=== PATIENT | male | born 1990 | race African-American/Black ===

== ENCOUNTER 2023-04-08 14:15 | Inpatient (IN) | payer OTHER, SELFPAY ==
--- OUTSIDE RECORDS SUMMARY | 2023-04-08 14:22 | XMS_ITS | Continuity of Care Document ---
Author Name Unknown Organization [facility] Address [address] [place] [id number]- Care Team Providers Care Collateral Specialist Name Role Phone Not on Staff, PCP Primary Care Physician Unavail able Encounter [facility] [place] Date(s): 12/13/22 - 12/13/[address] [address]- Encounter Diagnosis Alcohol intoxication(Final) - 12/13/22 Suicidal ideations(Final) - 12/13/22 Discharge Disposition: A-D/C Home Attending Physician: Aaron Rousseau MD Admitting Physician: Aaron Rousseau MD Referring Physician: Not on Staff, Referring MD Allergies, Adverse Reactions, Alerts Substance Reaction Severity Status Other Food Allergy Difficulty breathing CHOCOLATE MILK Active traZODone 1 Active 1 couldn't breath per patient report Immunizations Given and Recorded Vaccine Date Status Refusal Reason tetanus/diphtheria/pertussis, acel(Tdap) 07/25/20 Given tetanus/diphtheria/pertussis, acel(Tdap) 08/08/11 Given Not Given Vaccine Date Status Refusal Reason pneumococcal 23-valent vaccine 07/13/20 Not Given Patient Refuses influenza virus vaccine, inactivated 07/13/20 Not Given Patient Refuses Medications cloNIDine 0.1 mg oral tablet 0.1 mg, 1, tablet, By Mouth, 2 times a day, TAKE ONE TABLET BY MOUTH TWO TIMES DAILY, # 28 tablet, Refills 1, Tot. Refills 1, Maintenance, 11/26/22 10:11:00 EDT, Route to Pharmacy Electronically, [facility], Partial fill upon patient req... Start Date: 11/26/22 Stop Date: 12/24/22 Status: Ordered fluticasone 50 mcg/inh nasal spray 1 sprays = 50 mcg, Nares, Both, 2 times a day, PRN Nasal Congestion, # 16 Gm, 0 Refills, Maintenance, 05/19/20 9:17:00 EST, Nasal [place], [id number], Partial fill upon patient requestif the prescription is for a schedule II opioid silvia... Start Date: 05/19/20 Stop Date: 06/18/20 Status: Ordered hydrOXYzine pamoate 50 mg oral capsule 1 capsule = 50 mg, By Mouth, 3 times a day, PRN for anxiety, TAKE ONE CAPSULE BY MOUTH THREE TIMES DAILY NEEDED FOR ANXIETY, # 90 capsule, 0 Refills, Maintenance, 11/26/22 10:12:00 EDT, Capsule, [facility], Partial fill upon patient r... Start Date: 11/26/22 Stop Date: 12/26/22 Status: Ordered lidocaine 5% topical film 1 patch, Topically, Daily, for 30 days, APPLY ONE PATCH TO RIGHT LEG DAILY FOR PAIN RELIEF, # 30 patch, 0 Refills, Acute 12/26/22 10:14:00 EDT, 11/26/22 10:14:00 EDT, Patch, [facility],Partial fill upon patient request if the prescripti... Start Date: 11/26/22 Stop Date: 12/26/22 Status: Ordered nicotine 14 mg/24 hr transdermal film, extended release 1 patch, Topically, Daily, for 14 days, # 14 patch, 1 Refills, Acute 12/24/22 10:12:00 EDT, 11/26/22 10:12:00 EDT, Patch, [facility], Partial fill upon patient request if the prescription is for a schedule II opioid drug., 1 patch Topica... Start Date: 11/26/22 Stop Date: 12/24/22 Status: Ordered Nicotine 2 mg gum = 2 mg, Chew, Every 3 hours, PRN Other, cigarette craving, # 160 each, 0 Refills, Maintenance, 05/19/20 9:18:00 EST, Gum, [facility] #[id number], Partial fill upon patient request if the prescription is for a schedule II opioid drug., 182, cm, 12... Start Date: 05/19/20 Stop Date: 06/16/20 Status: Ordered QUEtiapine 100 mg oral tablet See Instructions, TAKE ONE TABLET (100 MG) BY MOUTH DAILY IN AM AND TWO TABLETS (200 MG) BY MOUTH DAILY AT BEDTIME, # 42 tablet, Refills 1, Tot. Refills 1, Maintenance, 11/26/22 10:13:00 EDT, Instructions Replace Required Details, Route to Pharmacy [place]... Start Date: 11/26/22 Status: Ordered Problem List Condition Confirmation Course Effective Dates Status Health St atus Informant Cocaine use Confirmed Active Schizophrenia Confirmed Active Vital Signs Most recent to oldest [Reference Range]: 1 2 3 Oxygen Saturation [94-100 %] 100 % (12/13/22 10:36 AM) 98 % (12/13/22 8:47 AM) 100 % (12/13/22 6:35 AM) Pulse Rate [55-90 bpm] 71 bpm (12/13/22 10:36 AM) 76 bpm (12/13/22 8:47 AM) 77 bpm (12/13/22 6:35 AM) Blood Pressure [90-138/55-84 mm Hg] 152/99mm Hg *H* (12/13/22 10:36 AM) 123/76mm Hg (12/13/22 8:47 AM) 144/77mm Hg *H* (12/13/22 6:35 AM) Respiratory Rate [16-30 br/min] 16 br/min (12/13/22 10:36 AM) 18 br/min (12/13/22 8:47 AM) 18 br/min (12/13/22 6:35 AM) Temperature [96.8-100.4 DegF] 97.8 DegF (12/13/22 8:47 AM) 98.2 DegF (12/13/22 1:15 AM) Mode of Delivery (Oxygen) Room air (12/13/22 10:36 AM) Room air (12/13/22 8:47 AM) Room air (12/13/22 6:35 AM) Blood pressure sites Arm, left (12/13/22 10:36 AM) Arm, right (12/13/22 8:47 AM) Arm, left (12/13/22 1:15 AM) Temperature Route Oral (12/13/22 8:47 AM) Oral (12/13/22 1:15 AM) Social History Social History Type Response Tobacco Use: 4 or less cigar ettes(less than 1/4 pack)/day in last 30 days, Marijuana daily . Sex Male Note * Aaron Rousseau MD: PERFORM, SIGN, VERIFY Event Display: Patient Education Handout Authored Date: Patient Care team information Care Team Personnel Name: Dyan Nguyễn RN Position: [facility] RN Member Role: Primary Care Nurse Name: Not on Staff, PCP Position: [facility] Physician (General Medicine) Member Role: PCP Name: Emma Bliss RN Position: [facility] RN Member Role: Primary Care Nurse Name: *[facility], ED Attending Position: [facility] ED Attendings Patient Name: Jodie Eden RN Position: [facility] ED RN W/OE and Tasks Member Role: Patient Care Provider Name: Liv Villalba Position: [facility] ED TA [facility] Member Role: Glass Furnace Tender Name: Aaron Rousseau MD Position: [facility] ED Medicine MD Member Role: Admitting Physician Address: Address: [address] [place] [address] [place] [address]- Care Team Related Persons Name: SHARAD BARCENAS Address: home [address] [place] [id number] Name: JAMIE GOVEA
--- OUTSIDE RECORDS SUMMARY | 2023-04-08 14:22 | XMS_ITS | Continuity of Care Document ---
Author Name Unknown Organization [facility] ter Address [address] [place] [address]- Care Team Providers Care Manager [employer] Name Role Phone Not on Staff, PCP Primary Care Physician Unavail able Encounter [facility] Date(s): 11/22/22 - 11/26/[address] [address]- Discharge Disposition: A-D/C Home Attending Physician: Laverne Zimmerman MD Admitting Physician: Laverne Zimmerman MD Referring Physician: Romero Jimenes MD Allergies, Adverse Reactions, Alerts Substance Reaction [...] inactivated 07/13/20 Not Given Patient Refuses Medications bacitracin topical 500 u/gm ointment See Instructions, APPLY TO UMBILICUS/ABDOMEN TOPICALLY FOUR TIMES DAILY, # 15 Gm, 0 Refills, Acute 12/13/22 0:01:00 EDT, 11/26/22 10:15:00 EDT, Ointment, [facility], Partial fill upon patient request if the prescription is for a schedule... Start Date: 11/26/22 Stop Date: 12/13/22 Status: Ordered cloNIDine 0.1 mg oral tablet 0.1 mg, 1, tablet, By Mouth, 2 times a day, TAKE ONE TABLET BY MOUTH TWO TIMES DAILY, # 28 tablet, Refills 1, Tot. Refills 1, Maintenance, 11/26/22 10:11:00 EDT, Route to Pharmacy Electronically, [facility], Partial fill upon patient req... Start Date: 11/26/22 Stop Date: 12/24/22 Status: Ordered fluticasone 50 mcg/inh nasal spray 1 sprays = 50 mcg, Nares, Both, 2 times a day, PRN Nasal Congestion, # 16 Gm, 0 Refills, Maintenance, 05/19/20 9:17:00 EST, Nasal [place], [id number], Partial fill upon patient requestif the prescription is for a schedule II opioid silvia... Start Date: 05/19/20 Stop Date: 06/18/20 Status: Ordered hydrOXYzine pamoate 50 mg oral capsule 1 capsule = 50 mg, By Mouth, 3 times a day, PRN for anxiety, TAKE ONE CAPSULE BY MOUTH THREE TIMES DAILY NEEDED FOR ANXIETY, # 90 capsule, 0 Refills, Maintenance, 11/26/22 10:12:00 EDT, Capsule, [facility], Partial fill upon patient r... Start Date: 11/26/22 Stop Date: 12/26/22 Status: Ordered lidocaine 5% topical film 1 patch, Topically, Daily, for 30 days, APPLY ONE PATCH TO RIGHT LEG DAILY FOR PAIN RELIEF, # 30 patch, 0 Refills, Acute 12/26/22 10:14:00 EDT, 11/26/22 10:14:00 EDT, Patch, [facility],Partial fill upon patient request if the prescripti... Start Date: 11/26/22 Stop Date: 12/26/22 Status: Ordered Methadone Tablet 20 mg, Tablet, By Mouth, 11/26/22 9:00:00 EDT Start Date: 11/26/22 Stop Date: 11/26/22 Status: Completed nicotine 14 mg/24 hr transdermal film, extended release 1 patch, Topically, Daily, for 14 days, # 14 patch, 1 Refills, Acute 12/24/22 10:12:00 EDT, 11/26/22 10:12:00 EDT, Patch, [facility], Partial fill upon patient request if the prescription is for a schedule II opioid drug., 1 patch Topica... Start Date: 11/26/22 Stop Date: 12/24/22 Status: Ordered Nicotine 2 mg gum = 2 mg, Chew, Every 3 hours, PRN Other, cigarette craving, # 160 each, 0 Refills, Maintenance, 05/19/20 9:18:00 EST, Gum, [id number], Partial fill upon patient request if the [...] Cocaine use Confirmed Active Schizophrenia Confirmed Active Results Radiology Reports * Exam Date Time Procedure Performing Provider Status 11/22/22 9:50 AM XR Hip w/Pelvis 2-3 View Left Gonzalo Hair; Auth (Verified) Notes: (XR Hip w/Pelvis 2-3 View Left) Reason For Exam: Pain RESULT: XR Hip w/Pelvis 2-3 View Left XR Hip w/Pelvis 2-3 View Left Hx of Present Illness: here with left leg pain s p fall on steps about 1 week ago LLE edema noted. pt state entire leg is painful. states he wants detox from alcohol last ETOH was when he fell. asking about being sectioned for psych endorses SI no plan denies HI; Reason: Pain; Clinical Question(s):Fracture COMPARISON: None. FINDINGS: There is no fracture or dislocation. Normal hips and sacroiliac joints. Normal soft tissues. IMPRESSION: Normal. WSN: [id number] Ordering Physician: Marilee Trevino Dictated By: Lindsey Rai MD Dictated Date/Time: 11/22/22 9:58 am Reviewed By: Lindsey Rai MD Signed By: Lindsey Rai MD Signed Date/Time: 11/22/22 9:58 am Transcribed By: FELIZ Transcribed Date/Time: 11/22/22 9:52 am * Exam Date Time Procedure Performing Provider Status 11/22/22 9:50 AM Knee 1 or 2 Views Left Price Lacey avi; Auth (Verified) Notes: (Knee 1 or 2 Views Left) Reason For Exam: Pain RESULT: Knee 1 or 2 Views Left Knee 1 or 2 Views Left, 4 views Hx of Present Illness: here with left leg pain s p fall on steps about 1 week ago LLE edema noted. pt state entire leg is painful. states he wants detox from alcohol last ETOH was when he fell. asking about being sectioned for psych endorses SI no plan denies HI; Reason: Pain; Clinical Question(s):Fracture COMPARISON: None. FINDINGS: There is no evidence of acute or healing fracture, dislocation or bone lesion. No arthritic changes. No osteochondral defects or intra-articular loose bodies. No evidence of joint effusion. IMPRESSION: No acute fracture. WSN: [id number] Ordering Physician: Marilee Trevino Dictated By: Lindsey Rai MD Dictated Date/Time: 11/22/22 9:51 am Reviewed By: Lindsey Rai MD Signed By: Lindsey Rai MD Signed Date/Time: 11/22/22 9:51 am Transcribed By: FELIZ Transcribed Date/Time: 11/22/22 9:51 am * Exam Date Time Procedure Performing Provider Status 11/22/22 9:20 AM US Doppler Ext Lower Venous Left Adri Hanna; Yaya (Verified) Notes: (US Doppler Ext Lower Venous Left) Reason For Exam: Pain in limb;Other: RESULT: US Doppler Ext Lower Venous Left US Doppler Ext Lower Venous Left Hx of Present Illness: here with left leg pain s p fall on steps about 1 week ago LLE edema noted. pt state entire leg is painful. states he wants detox from alcohol last ETOH was when he fell. asking about being sectioned for psych endorses SI no plan denies HI; Reason: Other:; Pain in limb; Clinical Question(s): Thrombus COMPARISON: None IMAGING TECHNIQUE: Ultrasound of the veins from the groin through the calf was performed using grayscale, color, and spectral Doppler ultrasound assessing for complete compressibility and normal flowcharacteristics. FINDINGS: Common femoral vein: Patent. No thrombosis. Femoral vein: Patent. No thrombosis. Popliteal vein: Patent. No thrombosis. Gastrocnemius veins: The visualized portions are patent without evidence of thrombosis. Peroneal veins: The visualized portions are patent without evidence of thrombosis. Posterior tibial veins: The visualized portions are patent without evidence of thrombosis. Contralateral common femoral vein: Patent. No thrombosis. OTHER FINDINGS: None. IMPRESSION: No evidence of deep venous thrombosis. I have personally reviewed the images and I agree with this report. WSN: [id number] Ordering Physician: Marilee Trevino Dictated By: Sridhar Breen MD Dictated Date/Time: 11/22/22 9:28 am Reviewed By: Chester Cabral MD Signed By: Chester Cabral MD Signed Date/Time: 11/22/22 9:33 am Transcribed By: FELIZ Transcribed Date/Time: 11/22/22 9:26 am Vital Signs Most recent to oldest [Reference Range]: 1 2 3 Oxygen Saturation [94-100 %] 98 % (11/26/22 8:50 AM) 100 % (11/26/22 6:47 AM) 99 % (11/25/22 10:07 PM) Pulse Rate [55-90 bpm] 99 bpm *H* (11/26/22 8:50 AM) 89 bpm (11/26/22 6:47 AM) 107 bpm *H* (11/25/22 10:07 PM) Blood Pressure [90-138/55-84 mm Hg] 150/97mm Hg *H* (11/26/22 8:50 AM) 132/85mm Hg (11/26/22 6:47 AM) 147/88mm Hg *H* (11/25/22 10:07 PM) Respiratory Rate [16-30 br/min] 18 br/min (11/26/22 8:29 AM) 18 br/min (11/26/22 6:47 AM) 16 br/min (11/25/22 10:07 PM) Temperature [96.8-100.4 DegF] 99.1 DegF (11/26/22 8:50 AM) 97.9 DegF (11/26/22 6:47 AM) 97.7 DegF (11/25/22 10:07 PM) Mode of Delivery (Oxygen) Room air (11/26/22 8:50 AM) Room air (11/26/22 6:47 AM) Room air (11/25/22 10:07 PM) Blood pressure sites Arm, right (11/26/22 8:50 AM) Arm, right (11/26/22 6:47 AM) Arm, right (11/25/22 10:07 PM) Temperature Route Oral (11/26/22 8:50 AM) Oral (11/26/22 6:47 AM) Oral (11/25/22 10:07 PM) Social History Social History Type Response Tobacco Use: 4 or less cigar ettes(less than 1/4 pack)/day in last 30 days, Marijuana daily . Sex Male Hospital Progress note * Bharath Yu DO: PERFORM Event Display: Progress Note Hospital Authored Date: Patient: ??RADHA PINTO ? Age:??32 Years?Sex:??Male?:??1990?? Subjective Chief complaint:? I'm ready for APTU. ?? Patient seen, chart reviewed, and discussed with treatment team.? Interval History: No acute overnight events. Patient was seen briefly this morning for follow-up prior to discharge to [facility] for self- presentation for detox admission. Radha did not report any symptoms concerning for anxiety, depression, psychosis, bronson or PTSD. He adamantly denied any suicidality, homicidality and desires for self-injurious behaviors.??He initially advocatedfor IPLOC on APTU, but once again reminded that there is no clinical indication for transfer to an inpatient psychiatric unit. He is hopeful, future-oriented and amenable to current plan for discharge to detox walk-in placement. Otherwise, denies any adverse effects on current medication regimen. Reports good appetite and eating meals regularly. ??Sleeping well overnight, reporting no sleep disturbances, daytime sedation, or fatigue. ??ADLs??appear attentive without incident. ??Able to make needs known.??Observed pleasantly conversing with various peers on the milieu. No episodes of psychomotor agitation over the last several days. ? Review of Systems Pertinent positives as listed above in HPI. ??Otherwise, remainder of review of systems negative. Objective Vitals & Measurements T:??99.1?F?? TMIN:??97.7?F?? TMAX:??99.1?F?? HR:??99??(Peripheral)?? RR:??18?? BP:??150/97?? SpO2:??98%?? Mental Status Mental Status Exam Appearance:??Hospital gown Eye contact: Within normal limits Attitude: Cooperative Motor Activity: Calm; absent of tics, tremors, psychomotor agitation, psychomotor slowing Mood: I'm doing alright Affect: Congruent, restricted Speech: Fluent, unimpaired; of normal rate, tone and prosody?? Perception: No reported AVH; no objective impairment, preoccupation or responding to internal stimuli Orientation: Intact to all spheres ?? Memory: Grossly intact Thought Process: Coherent, linear, goal-directed Thought Content: Hopeful, future-oriented, advocating for self (detox). No delusions, paranoia, or abnormal thought content elicited or reported. Overall, appropriate to encounter. Reliability: Fair historian Insight: Limited Judgment: Limited?? Impulse control: Limited Suicidality/Self-destructive Behavior: None Homicidality/Violence: None Muscle strength/tone: Antigravity. No rigidity noted. Ambulating without gait disturbance.?? [place] Suicide Score [place] Suicide Assessment Ca (11/06/22) [place] Suicide Score Last Asked Ca (11/26/22) Suicidal Intent No Plan Last Asked-CSSRS: No (11/06/22) Suicidal Thoughts Method Lst Asked-CSSRS: Yes (11/06/22) Suicidal Thoughts Past Month - CSSRS: No (11/06/22) Suicidal Thoughts Since Last Asked-CSSRS: No (11/26/22) Suicide Behavior Lifetime - CSSRS: No (11/06/22) Suicide Behavior Since Last Asked-CSSRS: No (11/26/22) Suicide Intent w/Plan Last Asked-CSSRS: No (11/06/22) Wish to be Past Month - CSSRS: No (11/06/22) Assessment/Plan Assessment:?In brief, this is a 32-year-old gentleman with past psychiatric history significant for schizoaffective disorder, bipolar type,??posttraumatic stress disorder,??polysubstance misuse (alcohol, cocaine, severe opioid use disorder,??severe, dependence),??suicidality and multiple priorinpatient psychiatric hospitalizations for treatment of the same, who initially presented to [facility]??on 11/22/22 for evaluation of??left lower extremity pain and suicidal ideation. At this point in time, the patient has been medically cleared and referred to Crisis Services??for evaluation and assistance with disposition initially made for??inpatient psychiatric hospitalization and subsequently recommended for [facility]IA services. The emergency psychiatry service was consulted for assistance with medication management. On initial psychiatric evaluation, Radha denies any symptoms concerning for acute primary psychiatric illness and adamantly denies any suicidality, homicidality and desires for self- injurious behaviors. There is no evidence or acute nor imminent safety concerns necessitating IPLOC. Radha's understanding was that he was required to go to APTU or alternative IPLOC site so that his medications could be continued after leaving the hospital. He was provided psychoeducation on the levels of care available for inpatient and outpatient services. He was in agreement with substance misuse, namely heroin / IVDU, was the primary concern and this was potentially worsening his mood and making medications poorly effective. He was amenable to finding placement at a detox facility and advocating to learn more about [facility] and other similar sites. Since??initial ED presentation, Radha has been calm, cooperative, adherent with psychotropic medications resumed by ED rahat rubalcava and there have been no episodes of psychomotor agitation necessitating seclusion, chemicalsedation and/or restraints. No objective evidence for acute psychiatric illness. Based on this evaluation, there is no evidence that Radha meets criteria??for emergency restraint??and/or??hospitalization under M.G.L.?? 123, Section 12 at this time. Will have crisis and recovery coaches assist with placement at detox center. In the interim, reasonable to continue all home psychotropic medications as currently scheduled. Additional PRNs made available for anxiety, insomnia and agitation. Explained to the patient the differential diagnoses, treatment options, risks of untreated illness, and?? risks/benefits??of treatment. See below for additional details??on treatment recommendations. ?? 11/26/22: Stable mood and??presentation based on chart review and today's encounter. ??Denying any SI/HI/AVH. Continue all medications as currently scheduled. Once again, no acute nor imminent safetyconcerns necessitating IPLOC at this tiime. Crisis services planning for discharge/diversion with patient self-presenting to [facility] for detox admission. ? Diagnoses: Opioid use disorder, severe, dependence Suicidal ideation Schizoaffective disorder, bipolar type by history Posttraumatic stress disorder by history Rule out substance induced mood disorder Cocaine intoxication Agitation Nonadherence to medications ? Recommendations: -No SI/HI/AVH; no acute safety concerns necessitating IPLOC nor meeting criteria??for emergency restraint??and/or??hospitalization under M.G.L.?? 123, Section 12 at this time. -Continue home psychotropic medications including: Clonidine 0.1 mg PO twice daily, Seroquel 100 mgPO daily in AM, 200 mg PO daily at bedtime,??and Vistaril 50-100 mg PO Q8H PRN anxiety. Aforementioned medications were sent to [facility] pharmacy for 2 weeks, 1 refill. Patient to follow-up with community mental health care providers. -Methadone last dose letter provided to patient at the time of discharge for continuation of MAT. -May utilize additional Seroquel Seroquel 50 mg PO Q4-6H PRN agitation.??Alternatively, can utilizeThorazine 50 mg PO/IM Q6H PRN agitation/psychosis. The preference is for PO medications, but if thepatient refuses the oral medications and there is sufficient acute safety concern, can judiciously utilize IM equivalents for severe agitation.??This medication combination should only be utilized inthe hospital setting and there is no need to discharge the patient on these medications. -Would note that these medications are only being utilized in the ER and/or medical floors while the patient awaits placement. Long-term need for these medications will need to be assessed by the patient's future treating psychiatrist. -In addition to the above, we counseled the patient in detail about the importance of sobriety and the interplay between usage of recreational and illicit substances and psychiatric symptoms. We explained to the patient that recreational and illicit substances would interfere with the efficacy of ps ychiatric medications and would keep the psychiatric medications from being able to show optimal therapeutic effect. We spoke at length about how recreational and illicit substances are known to worsen psychiatric symptoms and are known to put patients at chronic risk for recurrent psychiatric decompensation. Patient was also made aware of the fact that recreational and illicit substances are known to lead to impulsivity and disinhibited behavior because of which patient may become more likely to act on negative thoughts including thoughts of suicidality/homicidality. Patient was strongly advised to stay away from any recreational and illicit substances in the future, as any usage of recreational and illicit substances upon discharge would put the patient at chronic risk for recurrent psychiatric decompensation leading to chronic risk for impulsive behavior including but not limited to risk for suicide/self-harm/harm to others. Patient expressed a good understanding of this and showedmotivation to stay away from recreational and illicit substances upon discharge and to work on addiction during individual psychotherapy sessions in the outpatient setting. ? Thank you for allowing us to participate in this patient's care. We will sign off. Please feel freeto contact the Psychiatry consult service (pager [phone]) with any questions or concerns.? Recommendations??discussed with crisis service and Dr. Laverne Zimmerman. ?? Bharath Yu D.O. Emergency Psychiatry Services Division of Consultation-Liaison Psychiatry Department of Psychiatry [facility] [place] ? * Bharath Yu DO: PERFORM Event Display: Progress Note Hospital Authored Date: Patient: ??RADHA PINTO ? Age:??32 Years?Sex:??Male?:??1990? [address] [address] ?? Date and Time: 11/26/22, 10:19 AM ?? Patient Name:??Radha Pinto ED ? Methadone Last Dose Letter ? This form certifies that the following individual was evaluated and treated at the above emergency department.?? He received a dose of methadone, 20mg, by mouth?this morning, on 11/26/22??at 08:29AM. ? Follow Up Care ?? The patient was advised on their discharge instructions regarding follow up recommendations. ?? If any additional information is required, please contact the Hospital at the number listed above. ? Bharath Yu D.O.?? [employer], Emergency Psychiatry Services Division of Consultation-Liaison Psychiatry Department of Psychiatry [facility] ? Radiology * NELLA Goel S: Sridhar Jones MD: SIGN Chester Cabral MD: VERIFY Event Display: Result: Authored Date: US Doppler Ext Lower Venous Left Hx of Present Illness: here with left leg pain s p fall on steps about 1 week ago LLE edema noted. pt state entire leg is painful. states he wants detox from alcohol last ETOH was when he fell. asking about being sectioned for psych endorses SI no plan denies HI; Reason: Other:; Pain in limb; Clinical Question(s): Thrombus COMPARISON: None IMAGING TECHNIQUE: Ultrasound of the veins from the groin through the calf was performed using grayscale, color, and spectral Doppler ultrasound assessing for complete compressibility and normal flowcharacteristics. FINDINGS: Common femoral vein: Patent. No thrombosis. Femoral vein: Patent. No thrombosis. Popliteal vein: Patent. No thrombosis. Gastrocnemius veins: The visualized portions are patent without evidence of thrombosis. Peroneal veins: The visualized portions are patent without evidence of thrombosis. Posterior tibial veins: The visualized portions are patent without evidence of thrombosis. Contralateral common femoral vein: Patent. No thrombosis. OTHER FINDINGS: None. IMPRESSION: No evidence of deep venous thrombosis. I have personally reviewed the images and I agree with this report. WSN: [id number] Ordering Physician: Marilee Trevino Dictated By: Sridhar Breen MD Dictated Date/Time: 11/22/22 9:28 am Reviewed By: Chester Cabral MD Signed By: Chester Cabral MD Signed Date/Time: 11/22/22 9:33 am Transcribed By: FELIZ Transcribed Date/Time: 11/22/22 9:26 am XR Knee - left 1 or 2 Views * NELLA Goel S: JOHNNY Rai MD, Lindsey: VERIFY Event Display: Result: Authored Date: [id number] Knee 1 or 2 Views Left, 4 views Hx of Present Illness: here with left leg pain s p fall on steps about 1 week ago LLE edema noted. pt state entire leg is painful. states he wants detox from alcohol last ETOH was when he fell. asking about being sectioned for psych endorses SI no plan denies HI; Reason: Pain; Clinical Question(s):Fracture COMPARISON: None. FINDINGS: There is no evidence of acute or healing fracture, dislocation or bone lesion. No arthritic changes. No osteochondral defects or intra-articular loose bodies. No evidence of joint effusion. IMPRESSION: No acute fracture. WSN: [id number] Ordering Physician: Marilee Trevino Dictated By: Lindsey Rai MD Dictated Date/Time: 11/22/22 9:51 am Reviewed By: Lindsey Rai MD Signed By: Lindsey Rai MD Signed Date/Time: 11/22/22 9:51 am Transcribed By: FELIZ Transcribed Date/Time: 11/22/22 9:51 am XR Pelvis and Hip - left Views * BHSPowerscribe , CIS S: TRANSCRILindsey Paul MD: VERIFY Event Display: Result: Authored Date: [id number] XR Hip w/Pelvis 2-3 View Left Hx of Present Illness: here with left leg pain s p fall on steps about 1 week ago LLE edema noted. pt state entire leg is painful. states he wants detox from alcohol last ETOH was when he fell. asking about being sectioned for psych endorses SI no plan denies HI; Reason: Pain; Clinical Question(s):Fracture COMPARISON: None. FINDINGS: There is no fracture or dislocation. Normal hips and sacroiliac joints. Normal soft tissues. IMPRESSION: Normal. WSN: [id number] Ordering Physician: Marilee Trevino Dictated By: Lindsey Rai MD Dictated Date/Time: 11/22/22 9:58 am Reviewed By: Lindsey Rai MD Signed By: Lindsey Rai MD Signed Date/Time: 11/22/22 9:58 am Transcribed By: FELIZ Transcribed Date/Time: 11/22/22 9:52 am Patient Care team information Care Team Personnel Name: Dyan Nguyễn RN Position: [facility] RN Member Role: Primary Care Nurse Name: Not on Staff, PCP Position: [facility] Physician (General Medicine) Member Role: PCP Name: Emma Bliss RN Position: [facility] RN Member Role: Primary Care Nurse Name: *[facility], ED Attending Position: [facility] ED Attendings Patient Name: Laverne Zimmerman MD Position: [facility] Resident Member Role: Admitting Physician Address: Address: [address] [place] [address] [place] [address]- Name: Alice Lucas RN Position: [facility] ED RN W/OE and Tasks Member Role: Patient Care Provider Care Team Related Persons Name: SHARAD BARCENAS Address: home [address] [place] [id number] Name: JAMIE GOVEA
--- OUTSIDE RECORDS SUMMARY | 2023-04-08 14:22 | XMS_ITS | Continuity of Care Document ---
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 Name Role Phone Not on Staff, PCP Primary Care Physician Unavail able Encounter [facility] Date(s): 01/01/23 - 01/31/[address] [address]- Attending Physician: Ed Saucedo Admitting Physician: Admtr, Ed Referring Physician: Admtr, Ar8 Allergies, Adverse Reactions, Alerts Substance Reaction Severity Status Other Food Allergy Difficulty breathing CHOCOLATE MILK Active traZODone 1 Active 1 couldn't breath per patient report Immunizations Given and Recorded Vaccine Date Status Refusal Reason tetanus/diphtheria/pertussis, acel(Tdap) 07/25/20 Given tetanus/diphtheria/pertussis, acel(Tdap) 08/08/11 Given Medications clonazePAM 0.5 mg oral tablet TAKE 1 TABLET BY MOUTH TWICE A DAY NEEDED FOR ANXIETY Start Date: 12/25/22 Status: Ordered clonazePAM 1 mg oral tablet TAKE 1 TABLET BY MOUTH AT BEDTIME Start Date: 12/25/22 Status: Ordered cloNIDine 0.1 mg oral tablet 0.1 mg, 1, tablet, By Mouth, 2 times a day, TAKE ONE TABLET BY MOUTH TWO TIMES DAILY, # 28 tablet, Refills 1, Tot. Refills 1, Maintenance, 11/26/22 10:11:00 EDT, Route to Pharmacy Electronically, [facility], Partial fill upon patient req... Start Date: 11/26/22 Stop Date: 12/24/22 Status: Ordered cloNIDine 0.1 mg oral tablet TAKE 1 TABLET BY MOUTH TWICE A DAY NEEDED FOR ANXIETY Start Date: 12/25/22 Status: Ordered diazepam 10 mg oral tablet TAKE 1 TABLET BY MOUTH THREE TIMES A DAY NEEDED FOR ANXIETY Start Date: 12/25/22 Status: Ordered fluticasone 50 mcg/inh nasal spray 1 sprays = 50 mcg, Nares, Both, 2 times a day, PRN Nasal Congestion, # 16 Gm, 0 Refills, Maintenance, 05/19/20 9:17:00 EST, Nasal Eads, [facility] #[id number], Partial fill upon patient requestif the prescription is for a schedule II opioid silvia... Start Date: 05/19/20 Stop Date: 06/18/20 Status: Ordered hydrOXYzine pamoate 50 mg oral capsule 1 capsule = 50 mg, By Mouth, 3 times a day, PRN for anxiety, TAKE ONE CAPSULE BY MOUTH THREE TIMES DAILY NEEDED FOR ANXIETY, # 90 capsule, 0 Refills, Maintenance, 11/26/22 10:12:00 EDT, Capsule, [facility], Partial fill upon patient r... Start Date: 11/26/22 Stop Date: 12/26/22 Status: Ordered hydrOXYzine pamoate 50 mg oral capsule TAKE 1 CAPSULE BY MOUTH THREE TIMES A DAY NEEDED FOR ANXIETY Start Date: 12/25/22 Status: Ordered lithium 150 mg oral capsule TAKE 1 CAPSULE BY MOUTH TWICE A DAY Start Date: 12/25/22 Status: Ordered nicotine 14 mg/24 hr transdermal film, extended release APPLY 1 PATCH TOPICALLY EVERY DAY Start Date: 12/25/22 Status: Ordered Nicotine 2 mg gum = 2 mg, Chew, Every 3 hours, PRN Other, cigarette craving, # 160 each, 0 Refills, Maintenance, 05/19/20 9:18:00 EST, Gum, [facility] #[id number], Partial fill upon patient request if the [...] Pharmacy [facility]... Start Date: 11/26/22 Status: Ordered QUEtiapine 100 mg oral tablet TAKE ONE TABLET AT 3PM Start Date: 12/25/22 Status: Ordered QUEtiapine 200 mg oral tablet TAKE 1 TABLET BY MOUTH EVERY MORNING NEEDED AND TAKE 2 TABLETS EACH NIGHT. Start Date: 12/25/22 Status: Ordered QUEtiapine 50 mg oral tablet 0 Refills, Maintenance, 12/25/22 22:03:00 EDT, Partial fill upon patient request if the prescription is for a schedule II opioid drug. Start Date: 12/25/22 Status: Ordered Problem List Condition Confirmation Course Effective Dates Status Health [facility] Informant Cocaine use Confirmed Active Schizophrenia Confirmed Active Social History Social History Type Response Tobacco Use: 4 or less cigar ettes(less than 1/4 pack)/day in last 30 days, Marijuana daily . Sex Male Patient Care team information Care Team Personnel Name: Dyan Nguyễn RN Position: S RN Member Role: Primary Care Nurse Name: Not on Staff, PCP Position: S Physician (General Medicine) Member Role: PCP Name: Emma Bliss RN Position: S RN Member Role: Primary Care Nurse Care Team Related Persons Name: SHARAD BARCENAS Address: [address] [address] Name: JAMIE GOVEA
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
--- OUTSIDE RECORDS SUMMARY | 2023-04-08 14:22 | XMS_ITS | Continuity of Care Document ---
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 Name Role Phone Not on Staff, PCP Primary Care Physician Unavail able [place] [facility] [place] - 07/11/[address] [address]- Encounter Diagnosis Cellulitis(Final) - 07/09/22 History of alcohol use(Final) - 07/09/22 Schizoaffective disorder(Final) - 07/09/22 History of violent behavior(Final) - 07/09/22 Penile discharge(Final) - 07/09/22 Discharge Disposition: Transfer to Psych Facility Attending Physician: Jessi Esposito MD Admitting Physician: Jessi Esposito MD Referring Physician: Not on Staff, Referring [...] tablet, By Mouth, 2 times a day, # 60 tablet, Refills 0, Tot. Refills 0, Maintenance, 07/19/20 8:44:00 EST, Route to Pharmacy Electronically, [facility]/pharmacy #[id number], Partial fill upon patient request if the prescription is for a schedule II opi... Start Date: 07/19/20 Status: Ordered fluticasone 50 mcg/inh nasal spray 1 sprays = 50 mcg, Nares, Both, 2 times a day, PRN Nasal Congestion, # 16 Gm, 0 Refills, Maintenance, 05/19/20 9:17:00 EST, Nasal [place], [facility] #[id number], Partial fill upon patient requestif the prescription is for a schedule II opioid silvia... Start Date: 05/19/20 Stop Date: 06/18/20 Status: Ordered hydrOXYzine pamoate 50 mg oral capsule 1 capsule = 50 mg, By Mouth, 3 times a day, PRN for anxiety, # 90 capsule, 0 Refills, Maintenance, 05/19/20 9:19:00 EST, Capsule, [facility] #[id number], Partial fill upon patient request if theprescription is for a schedule II opioid drug., 182... Start Date: 05/19/20 Stop Date: 06/18/20 Status: Ordered ibuprofen 600 mg oral tablet 600 mg, 1, tablet, By Mouth, Every 8 hours, # 20 tablet, Refills 0, Tot. Refills 0, Maintenance, 12/19/20 13:05:00 EDT, Route to Pharmacy Electronically, [facility]/pharmacy #[id number], Partial fill upon patientrequest if the prescription is for a schedule II op... Start Date: 12/19/20 Status: Ordered ibuprofen 600 mg oral tablet 600 mg, 1, tablet, By Mouth, Every 8 hours, # 30 tablet, Refills 0, Tot. Refills 0, Maintenance, 07/25/20 10:28:00 EST, Route to Pharmacy Electronically, [facility]/pharmacy #[id number], Partial fill upon patientrequest if the prescription is for a schedule II op... Start Date: 07/25/20 Status: Ordered KlonoPIN 0.5 mg oral tablet 1 tablet = 0.5 mg, By Mouth, 2 times a day, # 60 tablet, 0 Refills, Maintenance, 07/19/20 8:44:00 EST, Tablet, [facility]/pharmacy #[id number], Partial fill upon patient request if the prescription is for a schedule II opioid drug., 183, cm, 07/18/20 20:00:00 EST,... Start Date: 07/19/20 Stop Date: 08/18/20 Status: Ordered lamotrigine 25 mg oral tablet See Instructions, TAKE 2 TABLETS BY MOUTH DAILY, # 60 tablet, Refills 0, Maintenance, 07/09/22 18:16:00 EST, Instructions Replace Required Details, Route to Pharmacy Electronically, [facility] #[id number], 183, cm, 07/19/20 8:59:00 EST, Height, 1... Start Date: 07/09/22 Status: Ordered lithium 300 mg oral tablet 1 tablet = 300 mg, By Mouth, 2 times a day, # 60 tablet, 0 Refills, Maintenance, 07/19/20 8:45:00 EST, Tablet, [facility]/pharmacy #[id number], Partial fill upon patient request if the prescription is for a schedule II opioid drug., 183, cm, 07/18/20 20:00:00 EST,... Start Date: 07/19/20 Stop Date: 08/18/20 Status: Ordered Nicotine 2 mg gum = 2 mg, Chew, Every 3 hours, PRN Other, cigarette craving, # 160 each, 0 Refills, Maintenance, 05/19/20 9:18:00 EST, Gum, [facility] #[id number], Partial fill upon patient request if the prescription is for a schedule II opioid drug., 182, cm, 12... Start Date: 05/19/20 Stop Date: 06/16/20 Status: Ordered nicotine 21 mg/24 hr transdermal film, extended release 1 patch, Topically, Daily, # 30 patch, 0 Refills, Maintenance, 05/19/20 9:19:00 EST, Patch, [facility] #[id number], Partial fill upon patient request if the prescription is for a schedule II opioid drug., 1 patch Topically Daily,x30 days, 182, cm... Start Date: 05/19/20 Stop Date: 06/18/20 Status: Ordered prazosin 1 mg oral capsule See Instructions, TAKE 2 CAPSULES BY MOUTH DAILY AT BEDTIME, # 60 capsule, Refills 0, Maintenance, 07/09/22 18:17:00 EST, Instructions Replace Required Details, Route to Pharmacy Electronically, [facility] #[id number], 183, cm, 07/19/20 8:59:00 E... Start Date: 07/09/22 Status: Ordered prazosin 2 mg oral capsule 1 capsule = 2 mg, By Mouth, Daily at bedtime, # 30 capsule, 0 Refills, Maintenance, 07/19/20 8:43:00 EST, [facility]/pharmacy #[id number], Partial fill upon patient request if the prescription is for a schedule II opioid drug., 183, cm, 07/18/20 20:00:00 EST, Heig... Start Date: 07/19/20 Stop Date: 08/18/20 Status: Ordered QUEtiapine 100 mg oral tablet 300 mg, 3, tablet, By Mouth, Daily at bedtime, # 90 tablet, Refills 0, Tot. Refills 0, Maintenance,07/19/20 8:43:00 EST, Route to Pharmacy Electronically, [facility]/pharmacy #[id number], Partial fill upon patient request if the prescription is for a schedule II... Start Date: 07/19/20 Stop Date: 08/18/20 Status: Ordered QUEtiapine 100 mg oral tablet 100 mg, 1, tablet, By Mouth, Daily, Daily at 3pm, # 30 tablet, Refills 0, Tot. Refills 0, Maintenance, 07/19/20 8:43:00 EST, Route to Pharmacy Electronically, [facility]/pharmacy #[id number], Partial fill upon patient request if the prescription is for a schedule... Start Date: 07/19/20 Stop Date: 08/18/20 Status: Ordered QUEtiapine 100 mg oral tablet See Instructions, TAKE 1 TABLET BY MOUTH TWICE DAILY(IN THE MORNING, AND IN THE AFTERNOON), # 60 tablet, Refills 0, Maintenance, 07/09/22 18:17:00 EST, Instructions Replace Required Details, Route toPharmacy Electronically, [facility] #[id number]... Start Date: 07/09/22 Status: Ordered QUEtiapine 300 mg oral tablet See Instructions, TAKE 1 TABLET BY MOUTH DAILY AT BEDTIME, # 30 tablet, 0 Refills, Maintenance, 07/09/22 18:18:00 EST, [facility] #[id number], 183, cm, 07/19/20 8:59:00 EST, Height, 109.7, kg, 07/15/20 14:45:00 EST, Dry Weight Start Date: 07/09/22 Status: Ordered SEROquel 200 mg oral tablet 200 mg, 1, tablet, By Mouth, Daily, # 30 tablet, Refills 0, Tot. Refills 0, Maintenance, 07/19/20 8:43:00 EST, Route to Pharmacy Electronically, [facility]/pharmacy #[id number], Partial fill upon patient request if the prescription is for a schedule II opioid drug... Start Date: 07/19/20 Stop Date: 08/18/20 Status: Ordered traZODone 50 mg oral tablet See Instructions, TAKE 1 TABLET BY MOUTH AT BEDTIME NEEDED FOR INSOMNIA, # 30 tablet, Refills 0,Maintenance, 07/09/22 18:18:00 EST, Instructions Replace Required Details, Route to Pharmacy Electronically, [facility] #[id number], 183, cm, ... Start Date: 07/09/22 Status: Ordered Vital Signs Most recent to oldest [Reference Range]: 1 2 3 Oxygen Saturation [94-100 %] 100 % (07/11/22 11:21 AM) 100 % (07/11/22 5:10 AM) 96 % (07/10/22 8:10 PM) Pulse Rate [55-90 bpm] 68 bpm (07/11/22 11:21 AM) 65 bpm (07/11/22 5:10 AM) 71 bpm (07/10/22 8:10 PM) Blood Pressure [90-138/55-84 mm Hg] 132/84mm Hg (07/11/22 11:21 AM) 128/85mm Hg (07/11/22 5:10 AM) 146/99mm Hg *H* (07/10/22 8:10 PM) Respiratory Rate [16-30 br/min] 16 br/min (07/11/22 11:21 AM) 16 br/min (07/11/22 5:10 AM) 16 br/min (07/10/22 8:10 PM) Temperature [96.8-100.4 DegF] 98.4 DegF (07/11/22 11:21 AM) 98.1 DegF (07/11/22 5:10 AM) 98.0 DegF (07/10/22 8:10 PM) Mode of Delivery (Oxygen) Room air (07/11/22 11:21 AM) Room air (07/11/22 5:10 AM) Room air (07/10/22 8:10 PM) Blood pressure sites Arm, right (07/11/22 11:21 AM) Arm, left (07/11/22 5:10 AM) Arm, left (07/10/22 8:10 PM) Temperature Route Oral (07/11/22 11:21 AM) Oral (07/11/22 5:10 AM) Oral (07/10/22 8:10 PM) Social History Social History Type Response Tobacco Use: 4 or less cigar ettes(less than 1/4 pack)/day in last 30 days, Marijuana daily . Sex Patient Care team information Care Team Personnel Name: Dyan Nguyễn RN Position: [facility] RN Member Role: Primary Care Nurse Name: Not on Staff, PCP Position: [facility] Physician (General Medicine) Member Role: PCP Name: Emma Bliss RN Position: [facility] RN Member Role: Primary Care Nurse Name: Harriet Busby RN Position: [facility] RN Member Role: Primary Care [facility] Attending Position: [facility] ED Attendings Patient Name: Eliseo Laguna RN Position: [facility] ED RN W/OE and Tasks Member Role: Patient Care Provider Name: Ceci Arnett MD Position: [facility] ED Medicine MD Address: Address: [address] [place] [address] [place] [address]- Care Team Related Persons Name: SHARAD GOVEA Address: home [address] [place] [id number] Name: JAMIE GOVEA
--- OUTSIDE RECORDS SUMMARY | 2023-04-08 14:22 | XMS_ITS | Continuity of Care Document ---
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 Name Role Phone Not on Staff, PCP Primary Care Physician Unavail able Encounter [facility] [place] Date(s): 07/24/20 - 07/25/[address] [address]- Discharge Disposition: A-D/C Home Attending Physician: Margarito Nagy MD Admitting Physician: Margarito Nagy MD Referring Physician: Not on Staff, Referring MD Allergies, Adverse Reactions, Alerts No Known Medication Allergies Substance Reaction Severity Status Other Food Allergy Difficulty breathing CHOCOLATE MILK Active Immunizations Given and Recorded Vaccine Date Status [...] 07/19/20 8:44:00 EST, Route to Pharmacy Electronically, [facility]/pharmacy #[id number], Partial fill upon patient request if the prescription is for a schedule II opi... Start Date: 07/19/20 Status: Ordered fluticasone 50 mcg/inh nasal spray 1 sprays = 50 mcg, Nares, Both, 2 times a day, PRN Nasal Congestion, # 16 Gm, 0 Refills, Maintenance, 05/19/20 9:17:00 EST, Nasal [place], [facility] #[id number], Partial fill upon patient requestif the prescription is for a schedule II opioid silvia... Start Date: 05/19/20 Stop Date: 06/18/20 Status: Ordered hydrOXYzine pamoate 50 mg oral capsule 1 capsule = 50 mg, By Mouth, 3 times a day, PRN for anxiety, # 90 capsule, 0 Refills, Maintenance, 05/19/20 9:19:00 EST, Capsule, [facility] #[id number], Partial fill upon patient request if theprescription is for a schedule II opioid drug., 182... Start Date: 05/19/20 Stop Date: 06/18/20 Status: Ordered ibuprofen 600 mg oral tablet 600 mg, 1, tablet, By Mouth, Every 8 hours, # 30 tablet, Refills 0, Tot. Refills 0, Maintenance, 07/25/20 10:28:00 EST, Route to Pharmacy Electronically, [facility]/pharmacy #[id number], Partial fill upon patientrequest if the prescription is for a schedule II op... Start Date: 07/25/20 Status: Ordered KlonoPIN 0.5 mg oral tablet 1 tablet = 0.5 mg, By Mouth, 2 times a day, # 60 tablet, 0 Refills, Maintenance, 07/19/20 8:44:00 EST, Tablet, [facility]/pharmacy #[id number], Partial fill upon patient request if the prescription is for a schedule II opioid drug., 183, cm, 07/18/20 20:00:00 EST,... Start Date: 07/19/20 Stop Date: 08/18/20 Status: Ordered lithium 300 mg oral tablet 1 tablet = 300 mg, By Mouth, 2 times a day, # 60 tablet, 0 Refills, Maintenance, 07/19/20 8:45:00 EST, Tablet, [facility]/pharmacy #[id number], Partial fill upon patient request if the prescription is for a schedule II opioid drug., 183, cm, 07/18/20 20:00:00 EST,... Start Date: 07/19/20 Stop Date: 08/18/20 Status: Ordered Nicotine 2 mg gum = 2 mg, Chew, Every 3 hours, PRN Other, cigarette craving, # 160 each, 0 Refills, Maintenance, 05/19/20 9:18:00 EST, Gum, [facility] #[id number], Partial fill upon patient request if the prescription is for a schedule II opioid drug., 182, cm, 12... Start Date: 05/19/20 Stop Date: 06/16/20 Status: Ordered nicotine 21 mg/24 hr transdermal film, extended release 1 patch, Topically, Daily, # 30 patch, 0 Refills, Maintenance, 05/19/20 9:19:00 EST, Patch, [facility] #[id number], Partial fill upon patient request if the prescription is for a schedule II opioid drug., 1 patch Topically Daily,x30 days, 182, cm... Start Date: 05/19/20 Stop Date: 06/18/20 Status: Ordered prazosin 2 mg oral capsule 1 capsule = 2 mg, By Mouth, Daily at bedtime, # 30 capsule, 0 Refills, Maintenance, 07/19/20 8:43:00 EST, [facility]/pharmacy #[id number], Partial fill upon patient request if the prescription is for a schedule II opioid drug., 183, cm, 07/18/20 20:00:00 EST, Heig... Start Date: 07/19/20 Stop Date: 08/18/20 Status: Ordered QUEtiapine 100 mg oral tablet 300 mg, 3, tablet, By Mouth, Daily at bedtime, # 90 tablet, Refills 0, Tot. Refills 0, Maintenance,07/19/20 8:43:00 EST, Route to Pharmacy Electronically, [facility]/pharmacy #[id number], Partial fill upon patient request if the prescription is for a schedule II... Start Date: 07/19/20 Stop Date: 08/18/20 Status: Ordered QUEtiapine 100 mg oral tablet 100 mg, 1, tablet, By Mouth, Daily, Daily at 3pm, # 30 tablet, Refills 0, Tot. Refills 0, Maintenance, 07/19/20 8:43:00 EST, Route to Pharmacy Electronically, [facility]/pharmacy #[id number], Partial fill upon patient request if the prescription is for a schedule... Start Date: 07/19/20 Stop Date: 08/18/20 Status: Ordered SEROquel 200 mg oral tablet 200 mg, 1, tablet, By Mouth, Daily, # 30 tablet, Refills 0, Tot. Refills 0, Maintenance, 07/19/20 8:43:00 EST, Route to Pharmacy Electronically, [facility]/pharmacy #[id number], Partial fill upon patient request if the prescription is for a schedule II opioid drug... Start Date: 07/19/20 Stop Date: 08/18/20 Status: Ordered Vital Signs Most recent to oldest [Reference Range]: 1 2 3 Oxygen Saturation [94-100 %] 100 % (07/25/20 10:30 AM) 100 % (07/25/20 8:45 AM) 97 % (07/25/20 2:37 AM) Pulse Rate [55-90 bpm] 96 bpm *H* (07/25/20 10:30 AM) 100 bpm *H* (07/25/20 8:45 AM) 96 bpm *H* (07/25/20 2:37 AM) Blood Pressure [90-138/55-84 mm Hg] 130/84mm Hg (07/25/20 10:30 AM) 143/85mm Hg *H* (07/25/20 8:45 AM) 103/45mm Hg (07/25/20 2:37 AM) Respiratory Rate [16-30 br/min] 16 br/min (07/25/20 10:30 AM) 16 br/min (07/25/20 8:45 AM) 16 br/min (07/25/20 2:37 AM) Temperature [96.8-100.4 DegF] 98.1 DegF (07/25/20 8:45 AM) 98.4 DegF (07/24/20 5:14 PM) Mode of Delivery (Oxygen) Room air (07/25/20 10:30 AM) Room air (07/25/20 8:45 AM) Room air (07/25/20 2:37 AM) Blood pressure sites Arm, right (07/25/20 2:37 AM) Arm, left (07/25/20 1:22 AM) Arm, left (07/24/20 5:14 PM) Temperature Route Oral (07/25/20 8:45 AM) Oral (07/24/20 5:14 PM) Social History Social History Type Response Tobacco Use: 4 or less cigar ettes(less than 1/4 pack)/day in last 30 days, Marijuana daily . Sex
--- OUTSIDE RECORDS SUMMARY | 2023-04-08 14:22 | XMS_ITS | Continuity of Care Document ---
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 [place] - 10/27/[address] [address]- Encounter Diagnosis STD exposure(Final) - 10/27/22 Discharge Disposition: A-D/C Home Attending Physician: Nilesh Landry MD Admitting Physician: Nilesh Landry MD Referring Physician: Not on Staff, Referring [...] 07/19/20 8:44:00 EST, Route to Pharmacy Electronically, [facility]/pharmacy #[id number], Partial fill upon patient request if the prescription is for a schedule II opi... Start Date: 07/19/20 Status: Ordered fluticasone 50 mcg/inh nasal spray 1 sprays = 50 mcg, Nares, Both, 2 times a day, PRN Nasal Congestion, # 16 Gm, 0 Refills, Maintenance, 05/19/20 9:17:00 EST, Nasal [place], [facility] #[id number], Partial fill upon patient requestif the prescription is for a schedule II opioid silvia... Start Date: 05/19/20 Stop Date: 06/18/20 Status: Ordered hydrOXYzine pamoate 50 mg oral capsule 1 capsule = 50 mg, By Mouth, 3 times a day, PRN for anxiety, # 90 capsule, 0 Refills, Maintenance, 05/19/20 9:19:00 EST, Capsule, [facility] #[id number], Partial fill upon patient request if theprescription is for a schedule II opioid drug., 182... Start Date: 05/19/20 Stop Date: 06/18/20 Status: Ordered ibuprofen 600 mg oral tablet 600 mg, 1, tablet, By Mouth, Every 8 hours, # 20 tablet, Refills 0, Tot. Refills 0, Maintenance, 12/19/20 13:05:00 EDT, Route to Pharmacy Electronically, [facility]/pharmacy #[id number], Partial fill upon patientrequest if the prescription is for a schedule II op... Start Date: 12/19/20 Status: Ordered ibuprofen 600 mg oral tablet 600 mg, 1, tablet, By Mouth, Every 8 hours, # 30 tablet, Refills 0, Tot. Refills 0, Maintenance, 07/25/20 10:28:00 EST, Route to Pharmacy Electronically, [facility]/pharmacy #[id number], Partial fill upon patientrequest if the prescription is for a schedule II op... Start Date: 07/25/20 Status: Ordered KlonoPIN 0.5 mg oral tablet 1 tablet = 0.5 mg, By Mouth, 2 times a day, # 60 tablet, 0 Refills, Maintenance, 07/19/20 8:44:00 EST, Tablet, [facility]/pharmacy #[id number], Partial fill upon patient request if the prescription is for a schedule II opioid drug., 183, cm, 07/18/20 20:00:00 EST,... Start Date: 07/19/20 Stop Date: 08/18/20 Status: Ordered lamotrigine 25 mg oral tablet See Instructions, TAKE 2 TABLETS BY MOUTH DAILY, # 60 tablet, Refills 0, Maintenance, 07/09/22 18:16:00 EST, Instructions Replace Required Details, Route to Pharmacy Electronically, [facility] #[id number], 183, cm, 07/19/20 8:59:00 EST, Height, 1... Start Date: 07/09/22 Status: Ordered lithium 300 mg oral tablet 1 tablet = 300 mg, By Mouth, 2 times a day, # 60 tablet, 0 Refills, Maintenance, 07/19/20 8:45:00 EST, Tablet, [facility]/pharmacy #[id number], Partial fill upon patient request if the prescription is for a schedule II opioid drug., 183, cm, 07/18/20 20:00:00 EST,... Start Date: 07/19/20 Stop Date: 08/18/20 Status: Ordered Nicotine 2 mg gum = 2 mg, Chew, Every 3 hours, PRN Other, cigarette craving, # 160 each, 0 Refills, Maintenance, 05/19/20 9:18:00 EST, Gum, [facility] #[id number], Partial fill upon patient request if the prescription is for a schedule II opioid drug., 182, cm, 12... Start Date: 05/19/20 Stop Date: 06/16/20 Status: Ordered nicotine 21 mg/24 hr transdermal film, extended release 1 patch, Topically, Daily, # 30 patch, 0 Refills, Maintenance, 05/19/20 9:19:00 EST, Patch, [facility] #[id number], Partial fill upon patient request if the prescription is for a schedule II opioid drug., 1 patch Topically Daily,x30 days, 182, cm... Start Date: 05/19/20 Stop Date: 06/18/20 Status: Ordered prazosin 1 mg oral capsule See Instructions, TAKE 2 CAPSULES BY MOUTH DAILY AT BEDTIME, # 60 capsule, Refills 0, Maintenance, 07/09/22 18:17:00 EST, Instructions Replace Required Details, Route to Pharmacy Electronically, [facility] #[id number], 183, cm, 07/19/20 8:59:00 E... Start Date: 07/09/22 Status: Ordered prazosin 2 mg oral capsule 1 capsule = 2 mg, By Mouth, Daily at bedtime, # 30 capsule, 0 Refills, Maintenance, 07/19/20 8:43:00 EST, [facility]/pharmacy #[id number], Partial fill upon patient request if the prescription is for a schedule II opioid drug., 183, cm, 07/18/20 20:00:00 EST, Heig... Start Date: 07/19/20 Stop Date: 08/18/20 Status: Ordered QUEtiapine 100 mg oral tablet 300 mg, 3, tablet, By Mouth, Daily at bedtime, # 90 tablet, Refills 0, Tot. Refills 0, Maintenance,07/19/20 8:43:00 EST, Route to Pharmacy Electronically, [facility]/pharmacy #[id number], Partial fill upon patient request if the prescription is for a schedule II... Start Date: 07/19/20 Stop Date: 08/18/20 Status: Ordered QUEtiapine 100 mg oral tablet 100 mg, 1, tablet, By Mouth, Daily, Daily at 3pm, # 30 tablet, Refills 0, Tot. Refills 0, Maintenance, 07/19/20 8:43:00 EST, Route to Pharmacy Electronically, [facility]/pharmacy #[id number], Partial fill upon patient request if the prescription is for a schedule... Start Date: 07/19/20 Stop Date: 08/18/20 Status: Ordered QUEtiapine 100 mg oral tablet See Instructions, TAKE 1 TABLET BY MOUTH TWICE DAILY(IN THE MORNING, AND IN THE AFTERNOON), # 60 tablet, Refills 0, Maintenance, 07/09/22 18:17:00 EST, Instructions Replace Required Details, Route toPharmacy Electronically, [facility] #[id number]... Start Date: 07/09/22 Status: Ordered QUEtiapine 300 mg oral tablet See Instructions, TAKE 1 TABLET BY MOUTH DAILY AT BEDTIME, # 30 tablet, 0 Refills, Maintenance, 07/09/22 18:18:00 EST, [facility] #[id number], 183, cm, 07/19/20 8:59:00 EST, Height, 109.7, kg, 07/15/20 14:45:00 EST, Dry Weight Start Date: 07/09/22 Status: Ordered SEROquel 200 mg oral tablet 200 mg, 1, tablet, By Mouth, Daily, # 30 tablet, Refills 0, Tot. Refills 0, Maintenance, 07/19/20 8:43:00 EST, Route to Pharmacy Electronically, [facility]/pharmacy #[id number], Partial fill upon patient request if the prescription is for a schedule II opioid drug... Start Date: 07/19/20 Stop Date: 08/18/20 Status: Ordered traZODone 50 mg oral tablet See Instructions, TAKE 1 TABLET BY MOUTH AT BEDTIME NEEDED FOR INSOMNIA, # 30 tablet, Refills 0,Maintenance, 07/09/22 18:18:00 EST, Instructions Replace Required Details, Route to Pharmacy Electronically, [facility] #[id number], 183, cm, 020... Start Date: 07/09/22 Status: Ordered Vital Signs Most recent to oldest [Reference Range]: 1 Height 186 cm (10/27/22 6:00 AM) Weight 88.5 kg (10/27/22 6:00 AM) Oxygen Saturation [94-100 %] 99 % (10/27/22 6:00 AM) Pulse Rate [55-90 bpm] 76 bpm (10/27/22 6:00 AM) Blood Pressure [90-138/55-84 mm Hg] 144/ 86mm Hg *H* (10/27/22 6:00 AM) Respiratory Rate [16-30 br/min] 18 br/mi n (10/27/22 6:00 AM) Temperature [96.8-100.4 DegF] 97.9 DegF (10/27/22 6:00 AM) Mode of Delivery (Oxygen) Room air (10/27/22 6:00 AM) Blood pressure sites Arm, left (10/27/22 6:00 AM) Temperature Route Oral (10/27/22 6:00 AM) Dry Weight 88.5 kg (10/27/22 6:00 AM) Social History Social History Type Response Tobacco Use: 4 or less cigar ettes(less than 1/4 pack)/day in last 30 days, Marijuana daily . Sex Patient Care team information Care Team Personnel Name: Dyan Nguyễn RN Position: [facility] RN Member Role: Primary Care Nurse Name: Not on Staff, PCP Position: [facility] Physician (General Medicine) Member Role: PCP Name: Emma Bliss RN Position: [facility] RN Member Role: Primary Care Nurse Name: Alice Whyte RN Position: [facility] ED RN W/OE and Tasks Member Role: Patient Care Provider Name: Nilesh Landry MD Position: [facility] ED Medicine MD Member Role: Admitting Physician Address: Address: [address] [place] [address] Name: Claudy Gomez RN Position: [facility] ED RN W/OE and Tasks Member Role: Patient Care Provider Name: Jozef Mckeon Position: [facility] Associate Professional Member Role: ED Physician Setter [employer]olding [employer] Address: Address: [address] [place] [address] Name: Diya Thurman Position: [facility] ED TA [facility] Member Role: Snag Grinder Care Team Related Persons Name: SHARAD BARCENAS Address: home [address] [place] [address] Name: JAMIE GOVEA
--- OUTSIDE RECORDS SUMMARY | 2023-04-08 14:22 | XMS_ITS | Continuity of Care Document ---
Author Name Unknown Organization [facility] ter Address [address] [place] [address]- Care Team Providers Care Netting Inspector Name Role Phone Not on Staff, PCP Primary Care Physician Unavail able Encounter [facility] [place] Date(s): 11/13/22 - 11/14/[address] [address]- Discharge Disposition: A-D/C Home Attending Physician: Sara Church MD Admitting Physician: Caesar Monk MD Referring Physician: Not on Staff, Referring [...] 07/19/20 8:44:00 EST, Route to Pharmacy Electronically, [facility]/pharmacy #[id number], Partial fill upon patient request if the prescription is for a schedule II opi... Start Date: 07/19/20 Status: Ordered fluticasone 50 mcg/inh nasal spray 1 sprays = 50 mcg, Nares, Both, 2 times a day, PRN Nasal Congestion, # 16 Gm, 0 Refills, Maintenance, 05/19/20 9:17:00 EST, Nasal [place], [facility] #[id number], Partial fill upon patient requestif the prescription is for a schedule II opioid silvia... Start Date: 05/19/20 Stop Date: 06/18/20 Status: Ordered hydrOXYzine pamoate 50 mg oral capsule 1 capsule = 50 mg, By Mouth, 3 times a day, PRN for anxiety, # 90 capsule, 0 Refills, Maintenance, 05/19/20 9:19:00 EST, Capsule, [facility] #[id number], Partial fill upon patient request if theprescription is for a schedule II opioid drug., 182... Start Date: 05/19/20 Stop Date: 06/18/20 Status: Ordered ibuprofen 600 mg oral tablet 600 mg, 1, tablet, By Mouth, Every 8 hours, # 20 tablet, Refills 0, Tot. Refills 0, Maintenance, 12/19/20 13:05:00 EDT, Route to Pharmacy Electronically, [facility]/pharmacy #[id number], Partial fill upon patientrequest if the prescription is for a schedule II op... Start Date: 12/19/20 Status: Ordered ibuprofen 600 mg oral tablet 600 mg, 1, tablet, By Mouth, Every 8 hours, # 30 tablet, Refills 0, Tot. Refills 0, Maintenance, 07/25/20 10:28:00 EST, Route to Pharmacy Electronically, [facility]/pharmacy #[id number], Partial fill upon patientrequest if the prescription is for a schedule II op... Start Date: 07/25/20 Status: Ordered LORazepam 1 mg oral tablet 1 tablet = 1 mg, By Mouth, Daily, PRN as needed for anxiety, 0 Refills, Maintenance, 11/14/22 5:34:00 EDT, Tablet, Partial fill upon patient request if the prescription is for a schedule II opioid drug. Start Date: 11/14/22 Status: Ordered Nicotine 2 mg gum = 2 mg, Chew, Every 3 hours, PRN Other, cigarette craving, # 160 each, 0 Refills, Maintenance, 05/19/20 9:18:00 EST, Gum, [facility] #[id number], Partial fill upon patient request if the prescription is for a schedule II opioid drug., 182, cm, 12... Start Date: 05/19/20 Stop Date: 06/16/20 Status: Ordered nicotine 21 mg/24 hr transdermal film, extended release 1 patch, Topically, Daily, # 30 patch, 0 Refills, Maintenance, 05/19/20 9:19:00 EST, Patch, [facility] #[id number], Partial fill upon patient request if the prescription is for a schedule II opioid drug., 1 patch Topically Daily,x30 days, 182, cm... Start Date: 05/19/20 Stop Date: 06/18/20 Status: Ordered QUEtiapine 100 mg oral tablet TAKE 1 TABLET BY MOUTH AT 3 PM Start Date: 11/14/22 Status: Ordered QUEtiapine 200 mg oral tablet TAKE 1 TABLET BY MOUTH EVERY MORNING NEEDED AND TAKE 2 TABLETS EACH NIGHT. Start Date: 11/14/22 Status: Ordered QUEtiapine 50 mg oral tablet TAKE 1 TABLET BY MOUTH TWICE A DAY NEEDED MOOD/ AGGRESSION Start Date: 11/14/22 Status: Ordered Problem List Condition Confirmation Course Effective Dates Status Health [facility] Informant Cocaine use Confirmed Active Schizophrenia Confirmed Active Results Radiology Reports * Exam Date Time Procedure Performing Provider Status 11/13/22 12:[address] Angio Abdomen Kayla Bach; Auth (Verified) Notes: (CT Angio Abdomen) Reason For Exam: Renal artery dissection suspected;Other: RESULT: CT Angio Abdomen EXAMINATION: CT Angio Chest, CT Angio Abdomen INDICATION: Hx of Present Illness: OD; Reason: Other:; Aortic disease, nontraumatic; Clinical Question(s): Other:; Aortic Dissection TECHNIQUE: Noncontrast axial imaging was performed of the chest and abdomen. During uneventful administration intravenous contrast, thin section axial images were obtained of the chest and abdomen inarterial phase. 100 cc of Omnipaque 300 was administered intravenously. This study was performed without oral contrast. Multiplanar reformats were computed. 3D and MIP reconstructions were performed. Weight-based protocol using automatic tube modulation was used to optimize exposure parameters. RADIATION DOSE PARAMETERS: CTDIvol Body: 7.54 mGy, DLP Body: 386 mGy*cm. COMPARISON: No relevant FINDINGS: CTA: There is no evidence of intramural hematoma or aortic dissection flap. There is no aortic aneurysm. There is no evidence of a periaortic hematoma to suggest rupture. No large central pulmonary emboli are present OTHER FINDINGS: The heart is normal in size. There is no pericardial effusion. There is no thoracic adenopathy by size criteria. No endobronchial lesions are seen. The lungs are clear. The liver, gallbladder, spleen, pancreas, and adrenal glands are unremarkable. Symmetric renal contrast enhancement is demonstrated bilaterally. There are no cysts or masses. No hydronephrosis is present. The visualized bowel loops are unremarkable. There is no obstruction. There is no free air, free fluid, or lymphadenopathy. 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 IMPRESSION: Unremarkable examination. WSN: [id number] Ordering Physician: Miles Saenz Dictated By: Lisbet Aguilar MD Dictated Date/Time: 11/13/22 12:43 p Reviewed By: Lisbet Aguilar MD Signed By: Lisbet Aguilar MD Signed Date/Time: 11/13/22 12:43 pm Transcribed By: FELIZ Transcribed Date/Time: 11/13/22 12:40 pm * Exam Date Time Procedure Performing Provider Status 11/13/22 12:[address] Angio Chest Kayla Bach; Au th (Verified) Notes: (CT Angio Chest) Reason For Exam: Aortic disease, nontraumatic;Other: RESULT: CT Angio Chest EXAMINATION: CT Angio Chest, CT Angio Abdomen INDICATION: Hx of Present Illness: OD; Reason: Other:; Aortic disease, nontraumatic; Clinical Question(s): Other:; Aortic Dissection TECHNIQUE: Noncontrast axial imaging was performed of the chest and abdomen. During uneventful administration intravenous contrast, thin section axial images were obtained of the chest and abdomen inarterial phase. 100 cc of Omnipaque 300 was administered intravenously. This study was performed without oral contrast. Multiplanar reformats were computed. 3D and MIP reconstructions were performed. Weight-based protocol using automatic tube modulation was used to optimize exposure parameters. RADIATION DOSE PARAMETERS: CTDIvol Body: 7.54 mGy, DLP Body: 386 mGy*cm. COMPARISON: No relevant FINDINGS: CTA: There is no evidence of intramural hematoma or aortic dissection flap. There is no aortic aneurysm. There is no evidence of a periaortic hematoma to suggest rupture. No large central pulmonary emboli are present OTHER FINDINGS: The heart is normal in size. There is no pericardial effusion. There is no thoracic adenopathy by size criteria. No endobronchial lesions are seen. The lungs are clear. The liver, gallbladder, spleen, pancreas, and adrenal glands are unremarkable. Symmetric renal contrast enhancement is demonstrated bilaterally. There are no cysts or masses. No hydronephrosis is present. The visualized bowel loops are unremarkable. There is no obstruction. There is no free air, free fluid, or lymphadenopathy. 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 IMPRESSION: Unremarkable examination. WSN: [id number] Ordering Physician: Miles Saenz Dictated By: Lisbet Aguilar MD Dictated Date/Time: 11/13/22 12:43 p Reviewed By: Lisbet Aguilar MD Signed By: Lisbet Aguilar MD Signed Date/Time: 11/13/22 12:43 pm Transcribed By: FELIZ Transcribed Date/Time: 11/13/22 12:40 pm * Exam Date Time Procedure Performing Provider Status 11/13/22 11:[address] Cervical Spine W/O Contrast Kayla Peacock; Auth (Verified) Notes: (CT Cervical Spine W/O Contrast) Reason For Exam: Neck trauma, dangerous injury mechanism;Other: RESULT: CT Cervical Spine W/O Contrast CT Head/Brain W/O Contrast, CT Cervical Spine W/O Contrast INDICATION: Hx of Present Illness: OD; Reason: Trauma; Clinical Question(s): Hematoma TECHNIQUE: Noncontrast head CT using axial technique was reconstructed in axial and coronal planes.Noncontrast spiral CT through the cervical spine was formatted in 3 planes. Automatic tube modulation was used for the cervical spine and iterative dose reconstruction was used for both the head and cervical spine to optimize scan parameters and image quality. CTDIvol Body: 15.10 mGy, DLP Body: 428 mGy*cm. CTDIvol Head: 40.90 mGy, DLP Head: 840 mGy*cm. COMPARISON: None. 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 BRAIN AND EXTRA-AXIAL SPACES: No parenchymal hemorrhage, midline shift, or mass effect. Eric-white matter differentiation is wellpreserved. No acute infarct. Ventricles, sulci, and basilar cisterns are normal. No white matter lesions. No subarachnoid hemorrhage. No subdural or epidural collection. CALVARIUM, SKULL BASE, AND SOFT TISSUES: No fractures or suspicious bony lesions. The paranasal sinuses and mastoid air cells are clear. Visualized orbits and globes are intact. The extracranial soft tissues are unremarkable. CERVICAL SPINE: No fracture. No acute osseous abnormalities. Normal alignment. No locked or perched facet. Intervertebral disc spaces and vertebral body heightsare preserved. OTHER BONES: No acute abnormality. CERVICAL SOFT TISSUES AND LUNG APICES: Normal soft tissues. Visualized lung apices are clear. IMPRESSION: No acute abnormality of the head or cervical spine. WSN: [id number] Ordering Physician: iMles Saenz Dictated By: Pablo Alexis MD Dictated Date/Time: 11/13/22 12:05 p Reviewed By: Pablo Alexis MD Signed By: Pablo Alexis MD Signed Date/Time: 11/13/22 12:05 pm Transcribed By: FELIZ Transcribed Date/Time: 11/13/22 11:54 am * Exam Date Time Procedure Performing Provider Status 11/13/22 11:[address] Head/Brain W/O Contrast Kayla Bach; Auth (Verified) Notes: (CT Head/Brain W/O Contrast) Reason For Exam: Trauma RESULT: CT Head/Brain W/O Contrast CT Head/Brain W/O Contrast, CT Cervical Spine W/O Contrast INDICATION: Hx of Present Illness: OD; Reason: Trauma; Clinical Question(s): Hematoma TECHNIQUE: Noncontrast head CT using axial technique was reconstructed in axial and coronal planes.Noncontrast spiral CT through the cervical spine was formatted in 3 planes. Automatic tube modulation was used for the cervical spine and iterative dose reconstruction was used for both the head and cervical spine to optimize scan parameters and image quality. CTDIvol Body: 15.10 mGy, DLP Body: 428 mGy*cm. CTDIvol Head: 40.90 mGy, DLP Head: 840 mGy*cm. COMPARISON: None. 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 BRAIN AND EXTRA-AXIAL SPACES: No parenchymal hemorrhage, midline shift, or mass effect. Eric-white matter differentiation is wellpreserved. No acute infarct. Ventricles, sulci, and basilar cisterns are normal. No white matter lesions. No subarachnoid hemorrhage. No subdural or epidural collection. CALVARIUM, SKULL BASE, AND SOFT TISSUES: No fractures or suspicious bony lesions. The paranasal sinuses and mastoid air cells are clear. Visualized orbits and globes are intact. The extracranial soft tissues are unremarkable. CERVICAL SPINE: No fracture. No acute osseous abnormalities. Normal alignment. No locked or perched facet. Intervertebral disc spaces and vertebral body heightsare preserved. OTHER BONES: No acute abnormality. CERVICAL SOFT TISSUES AND LUNG APICES: Normal soft tissues. Visualized lung apices are clear. IMPRESSION: No acute abnormality of the head or cervical spine. WSN: [id number] Ordering Physician: Miles Saenz Dictated By: Pablo Alexis MD Dictated Date/Time: 11/13/22 12:05 p Reviewed By: Pablo Alexis MD Signed By: Pablo Alexis MD Signed Date/Time: 11/13/22 12:05 pm Transcribed By: FELIZ Transcribed Date/Time: 11/13/22 11:54 am Vital Signs Most recent to oldest [Reference Range]: 1 2 3 Oxygen Saturation [94-100 %] 100 % (11/14/22 8:13 AM) 100 % (11/14/22 6:40 AM) 100 % (11/14/22 5:34 AM) Pulse Rate [55-90 bpm] 96 bpm *H* (11/14/22 8:13 AM) 78 bpm (11/14/22 6:40 AM) 75 bpm (11/14/22 5:34 AM) Blood Pressure [90-138/55-84 mm Hg] 145/67mm Hg *H* (11/14/22 8:13 AM) 110/67mm Hg (11/14/22 6:40 AM) 131/64mm Hg (11/14/22 5:34 AM) Respiratory Rate [16-30 br/min] 13 br/min *L* (11/14/22 8:13 AM) 16 br/min (11/14/22 6:40 AM) 16 br/min (11/14/22 5:34 AM) Temperature [96.8-100.4 DegF] 98 DegF (11/14/22 12:41 AM) 98 DegF (11/13/22 11:39 PM) 98 DegF (11/13/22 7:26 PM) Mode of Delivery (Oxygen) Room air (11/14/22 8:13 AM) Room air (11/14/22 6:40 AM) Room air (11/14/22 5:34 AM) Blood pressure sites Arm, right (11/14/22 8:13 AM) Arm, left (11/14/22 6:40 AM) Arm, left (11/14/22 5:34 AM) Temperature Route Oral (11/14/22 12:41 AM) Oral (11/13/22 11:39 PM) Oral (11/13/22 7:26 PM) Social History Social History Type Response Tobacco Use: 4 or less cigar ettes(less than 1/4 pack)/day in last 30 days, Marijuana daily . Sex Male History and physical note * Fernando Bales DO: PERFORM, MODIFY, MODIFY, MODIFY Event Display: History and Physical Hospital Authored Date: Patient: ??RADHA HUDSON ? Age:??32 Years?Sex:??Male?:??1990?? Chief Complaint/Reason for Consultation OD History of Present Illness This is a 32-year-old male with past medical history of??schizophrenia??and??cocaine use who currently presents to the hospital??from his longterm??after he was noted to have altered mental status.?? The patient is presently??somnolent but will arouse to voice, but he??falls back asleep and??is not providing much information or history,??so the bulk of this is obtained from??review of ED notes.?? The patient reportedly smokes marijuana??earlier today that was??laced with something, after which she was noted to be altered.?? There is also some dried blood noted over his right ear.?? He did receive some intranasal Narcan??prior to??presenting here without significant improvement of symptoms.??In the ED, patient was noted to have stable vital signs intermittent tachycardia.?? Blood pressureswere initially elevated to the 180s systolic but gradually improved.?? Lab work was notable for a white count of 10.4 and a BUN of 23 with a creatinine of 1.?? LFTs were normal except for an elevatedAST of 73.?? High-sensitivity troponin was less than 6x2 with a BNP of 22.?? Urine tox screen was positive for cannabinoids and cocaine the patient did undergo head and cervical spine CT that showed no acute abnormality.?? He also had a CTA of the chest abdomen was unremarkable.?? His EKG did show diffuse T wave inversion in lead III and aVF as well as in 2 to V5, with ST segment elevation in these leads as well.?? QTc was prolonged at 461 ms. Review of Systems Limited review of systems is obtained from this patient to??somnolent and not answering all questions. ??He denies any pain complaints presently. Objective ? Vital Signs?? Temperature: 98 DegF (11/14/22 00:41:00) Temperature Route: Oral (11/14/22 00:41:00) Pulse Rate:??97 bpm??High (11/14/22 02:04:00) Respiratory Rate: 18 br/min (11/14/22 02:04:00) Systolic Blood Pressure:??150 mm Hg??High (11/14/22 02:04:00) Diastolic Blood Pressure: 80 mm Hg (11/14/22 02:04:00) Blood pressure sites: Arm, left (11/14/22 02:04:00) Mean Arterial Pressure: 119 mm Hg (11/13/22 13:18:00) Pulse Pressure: 70 mm Hg (11/14/22 02:04:00) Oxygen Saturation: 98 % (11/14/22 02:04:00) Mode of Delivery (Oxygen): Room air (11/14/22 02:04:00) End Tidal CO2: 35 mm Hg (11/13/22 11:29:00) Early Warning Score: 0 (11/14/22 02:06:08) ? Physical Exam General: Alert, in no acute cardiopulmonary distress. Mental Status: Somnolent??but will arouse to voice though falling back asleep easily. ??Normal affect. Head: Normocephalic. Eyes: Pupils are equal, round and reactive to light. Extraocular muscles intact. Ear, Nose and Throat: Oropharynx clear, mucous membranes moist. Ears and nose without masses, lesions or deformities. Trachea midline. Neck: Supple, Full range of motion. Respiratory: Clear to auscultation and percussion. No wheezing, rales or rhonchi. Cardiovascular: Heart sounds normal. Regular rate and rhythm, no murmurs, rubs or gallops. Gastrointestinal: Abdomen soft, non-tender, non-distended. Normal bowel sounds. No pulsatile mass. No hepatosplenomegaly. Neurologic: Cranial nerves II-XII grossly intact. No focal neurological deficits. Moves all extremities spontaneously. Sensation intact bilaterally. Skin: No rashes or lesions. No petechiae or purpura. No edema. Musculoskeletal: No cyanosis or clubbing. No gross deformities. Normal range of motion. Assessment/Plan This is a 32-year-old male with past medical history of??schizophrenia and cocaine use, who currently presents to??the hospital for??longterm??after he was noted to??have altered mental status/decreased responsiveness.?? His urine tox screen here was positive for cocaine and??marijuana.?? He did have some??ST and T wave abnormalities on EKG,??but cardiac enzymes were noted to be negative x2. ?? Altered mental status. Patient will be admitted to an observation medical bed. ??He presents with altered mental status and??urine tox screen is positive for cocaine??and marijuana.?? The patient remains fairly somnolent, but will arouse easily to voice.?? We will continue to monitor for improvement.?? His symptoms are most likely due to??drug use.?? Head CT was obtained and showed no??acute abnormality.?? He also doesnot have any current signs or symptoms of underlying infection,??with a normal white blood cell count.?? Will obtain a UA to make sure??no evidence of UTI.?? Chest and abdominal imaging??did not showany acute abnormality. ?? History of schizophrenia. Per review of external med history, patient is on Seroquel.?? Given his somnolence, we will hold this for now and hopefully can resume??in the next day.?? He is also reportedly on hydroxyzine and lorazepam as needed. ?? CODE STATUS. Patient is a full code. ?? DVT prophylaxis. This patient is ambulatory and should be low risk for DVT. ??We will encourage early mobilization. ?? Patient seen on??November 13, 2022. Total time spent with patient and in coordination of care: including reviewing the chart/medical records, speaking with the patient, formulating and discussing the treatment plan, and documenting thefindings and encounter:?50 + min Histories Allergies Allergies ?(Active and Proposed Allergies Only) traZODone? (Severity: Unknown severity, Onset: Unknown) ?Comments: couldn't breath per patient report Other Food Allergy? (Severity: Unknown severity, Onset: Unknown) ?Reactions: CHOCOLATE MILK, Difficulty breathing ? Past Medical History/Problem List Active Problems??(2) Cocaine use Schizophrenia ? Past Surgical History Unable to obtain from patient ? Social History Patient currently resides at the longterm. Alcohol Details:??Use: Never. Substance Abuse Details:??Use: Current. ??Type: Marijuana??and cocaine use. Tobacco Details:??Use: 4 or less cigarettes(less than 1/4 pack)/day in last 30 days, Marijuana daily . ?? Family Medical History Able to obtain from patient Medications Home Medications??and states per recent external fill history, but could not confirm with patient) Clonidine (cloNIDine 0.1 mg oral tablet)?0.1?Milligram?1?tablet?By Mouth?2 times a day HydrOXYzine (hydrOXYzine pamoate 50 mg oral capsule)?1?capsule?50?Milligram?By Mouth?3 times a day?as needed?for anxiety?for 30?Days Nicotine (Nicotine 2 mg gum)?2?Milligram?Chew?Every 3 hours?as needed?Other?for 4?week(s)?cigarette craving Quetiapine (QUEtiapine 100 mg oral tablet)?100?Milligram?1?tablet?By Mouth?Daily?for 30?Days?Daily at 3pm Lorazepam 1 mg??daily as needed for anxiety ? Results Recent Labs BLOOD COUNT & DIFF WBC 10.4 k/mm3 ()?? 11/13/2022 10:02 RBC 4.58 m/mm3 (Low)?? 11/13/2022 10:02 Hgb 13.4 Gm/dL (Low)?? 11/13/2022 10:02 Hct 40.9 % ()?? 11/13/2022 10:02 MCV 89.3 femtoliters ()?? 11/13/2022 10:02 MCH 29.3 pg ()?? 11/13/2022 10:02 MCHC 32.8 g/dL (Low)?? 11/13/2022 10:02 Platelet Count 289 k/mm3 ()?? 11/13/2022 10:02 RDW-SD 43.5 femtoliters ()?? 11/13/2022 10:02 MPV 11.3 femtoliters ()?? 11/13/2022 10:02 Nucleated RBC (Automated) 0.0 #/100 WBC'S ()?? 11/13/2022 10:02 Abs. NRBC 0.0 k/mm3 ()?? 11/13/2022 10:02 ?? CARDIAC Nt-Probnp 22 pg/mL ()?? 11/13/2022 11:31 High Sensitivity Troponin (HSTnT) <6 ng/L ()?? 11/13/2022 11:31 ?? CHEM GENERAL Sodium 141 mmol/L ()?? 11/13/2022 10:02 Potassium 4.7 mmol/L ()?? 11/13/2022 10:02 Chloride 104 mmol/L ()?? 11/13/2022 10:02 Bicarbonate Level 26 mmol/L ()?? 11/13/2022 10:02 Anion Gap 11 ()?? 11/13/2022 10:02 Glucose Level 94 mg/dL ()?? 11/13/2022 10:02 BUN 23 mg/dL (High)?? 11/13/2022 10:02 Creatinine-Blood 1.0 mg/dL ()?? 11/13/2022 10:02 Estimated GFR Creatinine 98 ML/MIN/1.73 M2 ()?? 11/13/2022 10:02 Calcium 9.5 mg/dL ()?? 11/13/2022 10:02 Magnesium 2.2 mg/dL ()?? 11/13/2022 10:02 Protein, Total 6.9 Gm/dL ()?? 11/13/2022 10:02 Albumin 4.4 Gm/dL ()?? 11/13/2022 10:02 AG Ratio 1.8 ()?? 11/13/2022 10:02 Alkaline Phosphatase 83 units/L ()?? 11/13/2022 10:02 AST (SGOT) 73 units/L (High)?? 11/13/2022 10:02 ALT (SGPT) 41 units/L ()?? 11/13/2022 10:02 Bilirubin, Total 0.2 mg/dL ()?? 11/13/2022 10:02 Lactate 1.7 mmol/L ()?? 11/13/2022 10:02 ?? HEME OTHER Hold Lavender Top SPECIMEN DISCARDED AFTER 24 HOURS. ()?? 11/13/2022 10:02 Hold Blue Top SPECIMEN DISCARDED AFTER 4 HOURS. ()?? 11/13/2022 10:02 ?? TOXICOLOGY/TDM Ethanol, Serum or Plasma NONE DETECTED mg/dL ()?? 11/13/2022 10:02 Salicylate Level 0.0 mg/dL (Low)?? 11/13/2022 10:02 Barbiturate Screen, Urine NONE DETECTED ()?? 11/13/2022 16:25 Cannabinoid Screen, Urine POSITIVE (Abnormal)?? 11/13/2022 16:25 Cocaine Metabolite Screen, Urine POSITIVE (Abnormal)?? 11/13/2022 16:25 Benzodiazepine Screen, Urine NONE DETECTED ()?? 11/13/2022 16:25 Amphetamine Screen, Urine NONE DETECTED ()?? 11/13/2022 16:25 Opiate Screen, Urine NONE DETECTED ()?? 11/13/2022 16:25 Acetaminophen Level <5 mg/L (Low)?? 11/13/2022 10:02 ?? VIROLOGY COVID-19 by RT-PCR NEGATIVE ()?? 11/13/2022 15:57 ? Imaging(s) ?Other Image ?EKG showing sinus rhythm with a heart rate of 61 and prolonged QTc of 461 ms. Minimal voltage criteria for LVH noted. Biphasic T wave in lead III and aVF, as well as T wave in version in V2 to V5 with ST segment elevation most pronounced in V2 to V4, and less so in V5 ?(11/13/2022 11:[address] Head/Brain W/O Contrast) IMPRESSION: ?? No acute abnormality of the head or cervical spine. [1] ?? (11/13/2022 12:[address] Angio Chest) IMPRESSION: ?? Unremarkable examination. [2] [1]??CT Head/Brain W/O Contrast; Pablo Alexis MD 11/13/2022 11:52 EDT [2]??CT Angio Chest; Jeff RODNEY , Lisbet Day 11/13/2022 12:19 EDT EKG study * Event Display: EKG Authored Date: * Event Display: EKG Authored Date: * Event Display: ECG 12-Lead Authored Date: Please click on pdf link to open report * Event Display: ECG 12-Lead Authored Date: Ventricular Rate: 61 BPM Atrial Rate: 61 BPM P-R Interval: 134 ms QRS Duration: 92 ms Q-T Interval: 458 ms QTC Calculation(Bazett): 461 ms P [place]: 48 degrees R [place]: 71 degrees T [place]: 45 degrees Normal sinus rhythm Minimal voltage criteria for LVH, may be normal variant ( Sokolow-Woody ) T wave abnormality, consider anterior ischemia Prolonged QT Abnormal ECG When compared with ECG of 06-NOV-2022 03:07, No significant change was found Confirmed by CHINO JORDAN MD ([id number]) on 11/13/2022 5:51:33 PM [place]: CHINO JORDAN MD Note * Sara Church MD: PERFORM Event Display: Patient Education Leaflets Authored Date: [id number] Signs of Cocaine Addiction ?? 20929 Signs of Cocaine Addiction The more you regularly rely on cocaine to get you ???up,?? the closer you move toward cocaine addiction, which is also called cocaine use disorder. If you think you are on the path to addiction, youcan take action to change your behavior and find caring people to help you. Check your addiction level You may think cocaine helps you work faster and more creatively. But with repeated use, cocaine actually leads to decreased performance. Cocaine may also cause emotional problems (such as depression), seizures, and heart attacks. Read the following questions and check yes or no. Answering yes to any of these questions may be a signal that cocaine is a problem and you need help. ?? Questions to ask yourself Yes No ? Have you ever used cocaine to help you function better? Do you do things under the influence of cocaine that you wouldn???t normally do? Have you seriously thought that you might have a problem with substance use? Do you look forward to using cocaine? Do you spend more and more time with other people who use cocaine? Do you get anxious when you???re out of cocaine? Do you find it hard to enjoy life without cocaine? Have people ever confronted you or complained about your cocaine use? Have you ever missed work or a social occasion because of cocaine use? Has your cocaine use ever caused financial or legal problems? Is your cocaine use interfering with your sleep or causing irritability? Do you have to use more cocaine to get the same effects you once experienced? Have you ever had withdrawal symptoms, or felt sick, when you stopped using cocaine? Do you feel bad or guilty about your cocaine use? ?? Last Reviewed Date: 2019 ?? 6634-5404 [employer]. All rights reserved. This information is not intended as a substitute for professional medical care. Always follow your healthcare professional's instructions. ?? * Sara Church MD: PERFORM Event Display: Patient Education Leaflets Authored Date: [id number] Cocaine: Myths and Facts ?? 11095 Cocaine: Myths and Facts Cocaine is an illegal drug that's??dangerous and addictive. Its quality is unpredictable.??It's just as dangerous to snort cocaine as it is to smoke it or to inject it. A cocaine habit??costs a lot of money. Many people who use it become dealers to support their habit. Cocaine use often looks glamorous in TV shows and in the movies. But cocaine addiction often causespeople to lose their jobs, their families, their homes, and their reputation. Learn the facts aboutcocaine and its use. Some facts about cocaine Fact: All forms of the drug are highly addictive. Some people can get addicted after using it for ashort time. Fact: Cocaine, in all forms, can have serious and dangerous effects on both the body and the mind. Fact: Cocaine, especially at high doses,??can cause tremors and convulsions (seizures), infection, heart attack, stroke, psychosis, and . Fact: Long-term (chronic) cocaine use can seriously harm your body and your athletic performance. It can also cost you your job. Fact: Cocaine can cause increased sexual activity, which can lead to high-risk sex (multiple partners, unprotected sex). Heavy cocaine use can lead to impotence and loss of??interest in sex. Fact: Even a few uses can result in addiction, trouble with the law, or serious health problems???even . ?? More facts about cocaine Cocaine is a white powder made from the leaves of the [place] coca plant. Suppliers mix it with other, similar-looking powders. So the user can???t be sure what he or she is buying. These other powders dilute and contaminate the drug. They make it more unpredictable than it already is. They also can have harmful side effects and may be fatal. Crack is the smokable form of cocaine. It can be made by heating a solution of powder cocaine, baking soda, and water. The flakes or rocks that remain after the cooking process can be transparent, beige, or dirty white. Like powder cocaine, crack has impurities. They increase its health risks. And they make it hard for users to figure out how much of the drug they???re really ingesting. Crack cocaine gets its name from the crackling sound that is made when smoking the drug. ?? Last Reviewed Date: 2019 ?? 9001-8778 [employer]. All rights reserved. This information is not intended as a substitute for professional medical care. Always follow your healthcare professional's instructions. ?? * Sara Church MD: PERFORM Event Display: Patient Education Leaflets Authored Date: [id number] Cocaine and Crack Abuse ?? [id number] Cocaine and Crack Abuse Cocaine is typically snorted or injected into a vein. It can also be rubbed onto the gums.??Crack is made from cocaine. It can be smoked for a stronger effect. Cocaine causes a very powerful mental and physical dependence.?? Once you have a dependence, you'll do just about anything to get the drug and have the feeling it gives you. This can increase your risk for: ??? Overdose that may lead to ??? Loss of your job, your home, or your family ??? Accidental injuries to yourself or others while you are under the influence of the drug (in a car or at home) ??? Arrest, conviction, and fci sentence for possession of an illegal substance or for driving underthe influence Medically, cocaine can affect every organ in your body.??It can cause: ??? Chest pain, heart rhythm problem (arrhythmia), heart attack, and heart failure ??? Very high blood pressure ??? Severe headache, seizures, loss of consciousness, and stroke ??? Anxiety, psychosis, confusion, paranoia, and hallucinations ??? Nasal damage from snorting ??? Nausea, belly (abdominal) pain, and loss of appetite ??? Chronic bronchitis and shortness of breath from smoking ??? Higherrisk for HIV infection, hepatitis B or C, and heart infection. This is from IV use, risky sexual behavior while high, or both.? Kidney failure Home care These tips will help you care for yourself at home: ??? Admit you have a drug problem. Ask for help from your family and close friends. ??? See a mental health provider or counselor if you have depression or anxiety. ??? Join a self-help group for drug abuse. ??? Stay away from people who abuse drugs themselves or who tempt you to continue abusing the drug. ??? Eat a balanced diet and start a regular exercise program. If you continue to use IV cocaine, lower your risk of getting or spreading infection by: ??? Using only sterile equipment ??? Not reusing or sharing equipment ??? Cleaning your skin before injecting ?? Follow-up care Follow up with your healthcare provider, or as advised. Contact 1 of the resources below for help: ??? Substance Abuse and Mental Health Treatment Administration (SAMHSA) at www.samhsa.gov/find-treatment or 091-769-DBVA ??? [facility] [place] on Drug Abuse ([place]ALDO) at www.drugabuse.gov ? National [place] on Alcoholism and Drug Dependence at www.ncadd.org ??? Narcotics Anonymous at www.na.org ?? Call 911 Call 911 if any of these occur: ??? Seizure ??? Hard time breathing or slow, irregular breathing ??? Chest pain ??? Sudden weakness on 1 side of your body or sudden trouble speaking ??? Very drowsy or trouble waking up ??? Fast heart rate ?? When to get medical advice Call your healthcare provider right away if any of the following occur: ??? Agitation, anxiety, or unable to sleep ??? Unintended weight loss. This means more than 10 to 15 pounds over 6 months without dieting. ??? Hallucination, severe depression, or thoughts of harming yourself or another ??? Fever of 100.4??F??(38??C) or higher, or as advised by your provider ??? Redness, pain, or swelling at an injection site ??? Loss of vision or decreased vision ?? Last Reviewed Date: 2022 ?? 2444-9069 [employer]. All rights reserved. This information is not intended as a substitute for professional medical care. Always follow your healthcare professional's instructions. ?? CT Cervical spine WO contrast * Amando , CIS S: JOHNNY Alexis MD, Pablo: VERIFY Event Display: Result: Authored Date: [id number] CT Head/Brain W/O Contrast, CT Cervical Spine W/O Contrast INDICATION: Hx of Present Illness: OD; Reason: Trauma; Clinical Question(s): Hematoma TECHNIQUE: Noncontrast head CT using axial technique was reconstructed in axial and coronal planes.Noncontrast spiral CT through the cervical spine was formatted in 3 planes. Automatic tube modulation was used for the cervical spine and iterative dose reconstruction was used for both the head and cervical spine to optimize scan parameters and image quality. CTDIvol Body: 15.10 mGy, DLP Body: 428 mGy*cm. CTDIvol Head: 40.90 mGy, DLP Head: 840 mGy*cm. COMPARISON: None. 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 BRAIN AND EXTRA-AXIAL SPACES: No parenchymal hemorrhage, midline shift, or mass effect. Eric-white matter differentiation is wellpreserved. No acute infarct. Ventricles, sulci, and basilar cisterns are normal. No white matter lesions. No subarachnoid hemorrhage. No subdural or epidural collection. CALVARIUM, SKULL BASE, AND SOFT TISSUES: No fractures or suspicious bony lesions. The paranasal sinuses and mastoid air cells are clear. Visualized orbits and globes are intact. The extracranial soft tissues are unremarkable. CERVICAL SPINE: No fracture. No acute osseous abnormalities. Normal alignment. No locked or perched facet. Intervertebral disc spaces and vertebral body heightsare preserved. OTHER BONES: No acute abnormality. CERVICAL SOFT TISSUES AND LUNG APICES: Normal soft tissues. Visualized lung apices are clear. IMPRESSION: No acute abnormality of the head or cervical spine. WSN: [id number] Ordering Physician: Miles Saenz Dictated By: Pablo Alexis MD Dictated Date/Time: 11/13/22 12:05 p Reviewed By: Pablo Alexis MD Signed By: Pablo Alexis MD Signed Date/Time: 11/13/22 12:05 pm Transcribed By: FELIZ Transcribed Date/Time: 11/13/22 11:[address] Head WO contrast * [facility] , CIS S: TRANSCRIBE Pablo Alexis MD: VERIFY Event Display: Result: Authored Date: [id number] CT Head/Brain W/O Contrast, CT Cervical Spine W/O Contrast INDICATION: Hx of Present Illness: OD; Reason: Trauma; Clinical Question(s): Hematoma TECHNIQUE: Noncontrast head CT using axial technique was reconstructed in axial and coronal planes.Noncontrast spiral CT through the cervical spine was formatted in 3 planes. Automatic tube modulation was used for the cervical spine and iterative dose reconstruction was used for both the head and cervical spine to optimize scan parameters and image quality. CTDIvol Body: 15.10 mGy, DLP Body: 428 mGy*cm. CTDIvol Head: 40.90 mGy, DLP Head: 840 mGy*cm. COMPARISON: None. 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 BRAIN AND EXTRA-AXIAL SPACES: No parenchymal hemorrhage, midline shift, or mass effect. Eric-white matter differentiation is wellpreserved. No acute infarct. Ventricles, sulci, and basilar cisterns are normal. No white matter lesions. No subarachnoid hemorrhage. No subdural or epidural collection. CALVARIUM, SKULL BASE, AND SOFT TISSUES: No fractures or suspicious bony lesions. The paranasal sinuses and mastoid air cells are clear. Visualized orbits and globes are intact. The extracranial soft tissues are unremarkable. CERVICAL SPINE: No fracture. No acute osseous abnormalities. Normal alignment. No locked or perched facet. Intervertebral disc spaces and vertebral body heightsare preserved. OTHER BONES: No acute abnormality. CERVICAL SOFT TISSUES AND LUNG APICES: Normal soft tissues. Visualized lung apices are clear. IMPRESSION: No acute abnormality of the head or cervical spine. WSN: [id number] Ordering Physician: Miles Saenz Dictated By: Pablo Alexis MD Dictated Date/Time: 11/13/22 12:05 p Reviewed By: Pablo Alexis MD Signed By: Pablo Alexis MD Signed Date/Time: 11/13/22 12:05 pm Transcribed By: FELIZ Transcribed Date/Time: 11/13/22 11:54 am CTA Abdominal vessels W contrast IV * [facility] , CIS S: TRANSCRIBE Lisbet Aguilar MD M: VERIFY Event Display: Result: Authored Date: [id number] EXAMINATION: CT Angio Chest, CT Angio Abdomen INDICATION: Hx of Present Illness: OD; Reason: Other:; Aortic disease, nontraumatic; Clinical Question(s): Other:; Aortic Dissection TECHNIQUE: Noncontrast axial imaging was performed of the chest and abdomen. During uneventful administration intravenous contrast, thin section axial images were obtained of the chest and abdomen inarterial phase. 100 cc of Omnipaque 300 was administered intravenously. This study was performed without oral contrast. Multiplanar reformats were computed. 3D and MIP reconstructions were performed. Weight-based protocol using automatic tube modulation was used to optimize exposure parameters. RADIATION DOSE PARAMETERS: CTDIvol Body: 7.54 mGy, DLP Body: 386 mGy*cm. COMPARISON: No relevant FINDINGS: CTA: There is no evidence of intramural hematoma or aortic dissection flap. There is no aortic aneurysm. There is no evidence of a periaortic hematoma to suggest rupture. No large central pulmonary emboli are present OTHER FINDINGS: The heart is normal in size. There is no pericardial effusion. There is no thoracic adenopathy by size criteria. No endobronchial lesions are seen. The lungs are clear. The liver, gallbladder, spleen, pancreas, and adrenal glands are unremarkable. Symmetric renal contrast enhancement is demonstrated bilaterally. There are no cysts or masses. No hydronephrosis is present. The visualized bowel loops are unremarkable. There is no obstruction. There is no free air, free fluid, or lymphadenopathy. 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 IMPRESSION: Unremarkable examination. WSN: [id number] Ordering Physician: Miles Saenz Dictated By: Lisbet Aguilar MD Dictated Date/Time: 11/13/22 12:43 p Reviewed By: Lisbet Aguilar MD Signed By: Lisbet Aguilar MD Signed Date/Time: 11/13/22 12:43 pm Transcribed By: FELIZ Transcribed Date/Time: 11/13/22 12:40 pm CTA Chest vessels W contrast IV * [facility] , CIS S: TRANSCRIBE Lisbet Aguilar MD: VERIFY Event Display: Result: Authored Date: [id number] EXAMINATION: CT Angio Chest, CT Angio Abdomen INDICATION: Hx of Present Illness: OD; Reason: Other:; Aortic disease, nontraumatic; Clinical Question(s): Other:; Aortic Dissection TECHNIQUE: Noncontrast axial imaging was performed of the chest and abdomen. During uneventful administration intravenous contrast, thin section axial images were obtained of the chest and abdomen inarterial phase. 100 cc of Omnipaque 300 was administered intravenously. This study was performed without oral contrast. Multiplanar reformats were computed. 3D and MIP reconstructions were performed. Weight-based protocol using automatic tube modulation was used to optimize exposure parameters. RADIATION DOSE PARAMETERS: CTDIvol Body: 7.54 mGy, DLP Body: 386 mGy*cm. COMPARISON: No relevant FINDINGS: CTA: There is no evidence of intramural hematoma or aortic dissection flap. There is no aortic aneurysm. There is no evidence of a periaortic hematoma to suggest rupture. No large central pulmonary emboli are present OTHER FINDINGS: The heart is normal in size. There is no pericardial effusion. There is no thoracic adenopathy by size criteria. No endobronchial lesions are seen. The lungs are clear. The liver, gallbladder, spleen, pancreas, and adrenal glands are unremarkable. Symmetric renal contrast enhancement is demonstrated bilaterally. There are no cysts or masses. No hydronephrosis is present. The visualized bowel loops are unremarkable. There is no obstruction. There is no free air, free fluid, or lymphadenopathy. 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 IMPRESSION: Unremarkable examination. WSN: [id number] Ordering Physician: Miles Saenz Dictated By: Lisbet Aguilar MD Dictated Date/Time: 11/13/22 12:43 p Reviewed By: Lisbet Aguilar MD Signed By: Lisbet Aguilar MD Signed Date/Time: 11/13/22 12:43 pm Transcribed By: FELIZ Transcribed Date/Time: 11/13/22 12:40 pm Patient Care team information Care Team Personnel Name: Dyan Nguyễn RN Position: [facility] RN Member Role: Primary Care Nurse Name: Not on Staff, PCP Position: [facility] Physician (General Medicine) Member Role: PCP Name: Emma Bliss RN Position: [facility] RN Member Role: Primary Care Nurse Name: Zee BARTHOLOMEW Attending Position: [facility] ED Medicine Name: Amina Shrestha Position: [facility] ED TA [facility] Member Role: Patient Care Provider Name: Elyssa Gardner Position: [facility] ED RN W/OE and Tasks Member Role: Patient Care Provider Name: Basilia Brown RN Position: [facility] ED RN W/OE and Tasks Member Role: Patient Care Provider Name: Lu Valdivia Position: [facility] ED TA [facility] Member Role: Patient Care Provider Care Team Related Persons Name: SHARAD BARCENAS Address: home [address] [place] [id number] Name: JAMIE GOVEA
--- OUTSIDE RECORDS SUMMARY | 2023-04-08 14:22 | XMS_ITS | Continuity of Care Document ---
Author Name Unknown Organization [facility] ter Address [address] [place] [address]- Care Team Providers Care Advertising Account Executive Name Role Phone Not on Staff, PCP Primary Care Physician Unavail able Encounter [facility] Date(s): 12/19/20 - 12/19/[address] [address]- Discharge Disposition: A-D/C Home Attending Physician: Margarito Nagy MD Admitting Physician: Margarito Nayg MD Referring Physician: Not on Staff, Referring [...] 07/19/20 8:44:00 EST, Route to Pharmacy Electronically, [facility]/pharmacy #[id number], Partial fill upon patient request if the prescription is for a schedule II opi... Start Date: 07/19/20 Status: Ordered doxycycline hyclate 100 mg oral tablet 1 tablet = 100 mg, By Mouth, 2 times a day, for 7 days, # 14 tablet, 0 Refills, Acute 12/26/20 13:04:00 EDT, 12/19/20 13:04:00 EDT, Tablet, [id number], Partial fill upon patient request if the prescription is for a schedule II opioid drug., 18... Start Date: 12/19/20 Stop Date: 12/26/20 Status: Ordered fluticasone 50 mcg/inh nasal spray 1 sprays = 50 mcg, Nares, Both, 2 times a day, PRN Nasal Congestion, # 16 Gm, 0 Refills, Maintenance, 05/19/20 9:17:00 EST, Nasal [place], [facility] #[id number], Partial fill upon patient requestif the prescription is for a schedule II opioid silvia... Start Date: 05/19/20 Stop Date: 06/18/20 Status: Ordered hydrOXYzine pamoate 50 mg oral capsule 1 capsule = 50 mg, By Mouth, 3 times a day, PRN for anxiety, # 90 capsule, 0 Refills, Maintenance, 05/19/20 9:19:00 EST, Capsule, [facility] #[id number], Partial fill upon patient request if theprescription is for a schedule II opioid drug., 182... Start Date: 05/19/20 Stop Date: 06/18/20 Status: Ordered ibuprofen 600 mg oral tablet 600 mg, 1, tablet, By Mouth, Every 8 hours, # 20 tablet, Refills 0, Tot. Refills 0, Maintenance, 12/19/20 13:05:00 EDT, Route to Pharmacy Electronically, [facility]/pharmacy #[id number], Partial fill upon patientrequest if the prescription is for a schedule II op... Start Date: 12/19/20 Status: Ordered ibuprofen 600 mg oral tablet 600 mg, 1, tablet, By Mouth, Every 8 hours, # 30 tablet, Refills 0, Tot. Refills 0, Maintenance, 07/25/20 10:28:00 EST, Route to Pharmacy Electronically, [facility]/pharmacy #[id number], Partial fill upon patientrequest if the prescription is for a schedule II op... Start Date: 07/25/20 Status: Ordered KlonoPIN 0.5 mg oral tablet 1 tablet = 0.5 mg, By Mouth, 2 times a day, # 60 tablet, 0 Refills, Maintenance, 07/19/20 8:44:00 EST, Tablet, [id number], Partial fill upon patient request if the prescription is for a schedule II opioid drug., 183, cm, 07/18/20 20:00:00 EST,... Start Date: 07/19/20 Stop Date: 08/18/20 Status: Ordered lithium 300 mg oral tablet 1 tablet = 300 mg, By Mouth, 2 times a day, # 60 tablet, 0 Refills, Maintenance, 07/19/20 8:45:00 EST, Tablet, [facility]/pharmacy #[id number], Partial fill upon patient request if the prescription is for a schedule II opioid drug., 183, cm, 07/18/20 20:00:00 EST,... Start Date: 07/19/20 Stop Date: 08/18/20 Status: Ordered Nicotine 2 mg gum = 2 mg, Chew, Every 3 hours, PRN Other, cigarette craving, # 160 each, 0 Refills, Maintenance, 05/19/20 9:18:00 EST, Gum, [facility] #[id number], Partial fill upon patient request if the prescription is for a schedule II opioid drug., 182, cm, 12... Start Date: 05/19/20 Stop Date: 06/16/20 Status: Ordered nicotine 21 mg/24 hr transdermal film, extended release 1 patch, Topically, Daily, # 30 patch, 0 Refills, Maintenance, 05/19/20 9:19:00 EST, Patch, [facility] #[id number], Partial fill upon patient request if the prescription is for a schedule II opioid drug., 1 patch Topically Daily,x30 days, 182, cm... Start Date: 05/19/20 Stop Date: 06/18/20 Status: Ordered prazosin 2 mg oral capsule 1 capsule = 2 mg, By Mouth, Daily at bedtime, # 30 capsule, 0 Refills, Maintenance, 07/19/20 8:43:00 EST, [facility]/pharmacy #[id number], Partial fill upon patient request if the prescription is for a schedule II opioid drug., 183, cm, 07/18/20 20:00:00 EST, [place]... Start Date: 07/19/20 Stop Date: 08/18/20 Status: Ordered QUEtiapine 100 mg oral tablet 300 mg, 3, tablet, By Mouth, Daily at bedtime, # 90 tablet, Refills 0, Tot. Refills 0, Maintenance,07/19/20 8:43:00 EST, Route to Pharmacy Electronically, [facility]/pharmacy #[id number], Partial fill upon patient request if the prescription is for a schedule II... Start Date: 07/19/20 Stop Date: 08/18/20 Status: Ordered QUEtiapine 100 mg oral tablet 100 mg, 1, tablet, By Mouth, Daily, Daily at 3pm, # 30 tablet, Refills 0, Tot. Refills 0, Maintenance, 07/19/20 8:43:00 EST, Route to Pharmacy Electronically, [facility]/pharmacy #[id number], Partial fill upon patient request if the prescription is for a schedule... Start Date: 07/19/20 Stop Date: 08/18/20 Status: Ordered SEROquel 200 mg oral tablet 200 mg, 1, tablet, By Mouth, Daily, # 30 tablet, Refills 0, Tot. Refills 0, Maintenance, 07/19/20 8:43:00 EST, Route to Pharmacy Electronically, [facility]/pharmacy #[id number], Partial fill upon patient request if the prescription is for a schedule II opioid drug... Start Date: 07/19/20 Stop Date: 08/18/20 Status: Ordered Results Radiology Reports * Exam Date Time Procedure Performing Provider Status 12/19/20 11:42 AM Finger 2nd Left Hand Susi Kamara ; Auth (Verified) Notes: (Finger 2nd Left Hand) Reason For Exam: with Pain;Trauma RESULT: Finger 2nd Left Hand Finger 2nd Left Hand, 3 views Hx of Present Illness: Finger lac; Reason: Trauma; with Pain; Clinical Question(s): Foreign Body COMPARISON: None. FINDINGS: No fractures or bone lesions. No arthritic changes. Linear lucency in the soft tissues along the lateral aspect of the second digit proximally is compatible with history of laceration. There is surrounding soft tissue swelling and no radiopaque foreign body. IMPRESSION: Second digit laceration with no radiopaque foreign body or acute displaced fracture. WSN: [id number] Ordering Physician: Margarito Nagy MD Dictated By: Alice Chavarria MD Dictated Date/Time: 12/19/20 11:56 a Reviewed By: Alice Chavarria MD Signed By: Alice Chavarria MD Signed Date/Time: 12/19/20 11:56 am Transcribed By: FELIZ Transcribed Date/Time: 12/19/20 11:54 am Vital Signs Most recent to oldest [Reference Range]: 1 2 3 Oxygen Saturation [94-100 %] 98 % (12/19/20 1:33 PM) 97 % (12/19/20 10:48 AM) 97 % (12/19/20 10:33 AM) Pulse Rate [55-90 bpm] 74 bpm (12/19/20 1:33 PM) 105 bpm *H* (12/19/20 10:48 AM) 110 bpm *H* (12/19/20 10:33 AM) Blood Pressure [90-138/55-84 mm Hg] 141/85mm Hg *H* (12/19/20 1:33 PM) 126/97mm Hg (12/19/20 10:48 AM) Respiratory Rate [16-30 br/min] 18 br/min (12/19/20 1:33 PM) 18 br/min (12/19/20 10:48 AM) Temperature [96.8-100.4 DegF] 98.6 DegF (12/19/20 10:48 AM) Mode of Delivery (Oxygen) Room air (12/19/20 1:33 PM) Room air (12/19/20 10:48 AM) Room air (12/19/20 10:33 AM) Blood pressure sites Arm, right (12/19/20 1:33 PM) Arm, right (12/19/20 10:48 AM) Temperature Route Oral (12/19/20 10:48 AM) Social History Social History Type Response Tobacco Use: 4 or less cigar ettes(less than 1/4 pack)/day in last 30 days, Marijuana daily . Sex
--- OUTSIDE RECORDS SUMMARY | 2023-04-08 14:22 | XMS_ITS | Continuity of Care Document ---
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 Name Role Phone Not on Staff, PCP Primary Care Physician Unavail able Encounter [facility] Date(s): 11/29/22 - 12/02/[address] [address]- Encounter Diagnosis Opioid use disorder(Discharge Diagnosis) - 11/30/22 Paranoia(Final) - 12/02/22 Suicidal ideation(Final) - 12/02/22 Suicidal ideation(Discharge Diagnosis) - 11/30/22 Schizoaffective disorder, bipolar type(Discharge Diagnosis) - 11/30/22 Post-traumatic stress disorder(Discharge Diagnosis) - 11/30/22 Cocaine intoxication(Discharge Diagnosis) - 11/30/22 Cannabis intoxication(Discharge Diagnosis) - 11/30/22 Cannabis-induced psychotic disorder(Discharge Diagnosis) - 11/30/22 Cocaine-induced psychotic disorder(Discharge Diagnosis) - 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 Agitation(Discharge Diagnosis) - 11/30/22 Nonadherence to medication(Discharge Diagnosis) - 11/30/22 Psychotic disorder(Discharge Diagnosis) - 11/30/22 Delusion(Discharge Diagnosis) - 11/30/22 Depressive disorder(Discharge Diagnosis) - 11/30/22 Discharge Disposition: Transfer to Psych Facility Attending Physician: Laverne Zimmerman MD Admitting Physician: Laverne Zimmerman MD Referring Physician: Not on Staff, Referring [...] 12/13/22 0:01:00 EDT, 11/26/22 10:15:00 EDT, Ointment, [facility], Partial fill upon patient request if the prescription is for a schedule... Start Date: 11/26/22 Stop Date: 12/13/22 Status: Ordered Bactrim DS 800 mg-160 mg oral tablet 1 tablet, By Mouth, 2 times a day, for 5 days, Last dose to be given on 12/06/2022 in the evening, #9 tablet, 0 Refills, Acute 12/07/22 10:43:00 EDT, 12/02/22 10:43:00 EDT, Tablet, Partial fill upon patient request if the prescription is for a schedul... Start Date: 12/02/22 Stop Date: 12/07/22 Status: Ordered cloNIDine 0.1 mg oral tablet 0.1 mg, 1, tablet, By Mouth, 2 times a day, TAKE ONE TABLET BY MOUTH TWO TIMES DAILY, # 28 tablet, Refills 1, Tot. Refills 1, Maintenance, 11/26/22 10:11:00 EDT, Route to Pharmacy Electronically, [facility], Partial fill upon patient req... Start Date: 11/26/22 Stop Date: 12/24/22 Status: Ordered fluticasone 50 mcg/inh nasal spray 1 sprays = 50 mcg, Nares, Both, 2 times a day, PRN Nasal Congestion, # 16 Gm, 0 Refills, Maintenance, 05/19/20 9:17:00 EST, Nasal [place], [facility] #[id number], Partial fill upon patient requestif the prescription [...] 12/26/22 10:14:00 EDT, 11/26/22 10:14:00 EDT, Patch, [facility],Partial fill upon patient request if the prescripti... Start Date: 11/26/22 Stop Date: 12/26/22 Status: Ordered Methadone Tablet 20 mg, Tablet, By Mouth, 12/02/22 9:00:00 EDT Start Date: 12/02/22 Stop Date: 12/02/22 Status: Completed nicotine 14 mg/24 hr transdermal film, extended release 1 patch, Topically, Daily, for 14 days, # 14 patch, 1 Refills, Acute 12/24/22 10:12:00 EDT, 11/26/22 10:12:00 EDT, Patch, [facility], Partial fill upon patient request if the prescription is for a schedule II opioid drug., 1 patch Topica... Start Date: 11/26/22 Stop Date: 12/24/22 Status: Ordered Nicotine 2 mg gum = 2 mg, Chew, Every 3 hours, PRN Other, cigarette craving, # 160 each, 0 Refills, Maintenance, 05/19/20 9:18:00 EST, Gum, [facility] #[id number], Partial fill upon patient request if the [...] Cocaine use Confirmed Active Schizophrenia Confirmed Active Diagnosis Diagnosis Type Effective Dates Health Status Clinical Service Informant Opioid use disorder Discharge Diagnosis 11/30/22 Suicidal ideation Discharge Diagnosis 11/30/22 Schizoaffective disorder, bipolar type Discharge Diagnosis 11/30/22 Post-traumatic stress disorder Discharge Diagnosis 11/30/22 Cocaine intoxication Discharge Diagnosis 11/30/22 Cannabis intoxication Discharge Diagnosis 11/30/22 Cannabis-induced psychotic disorder Discharge Diagnosis 11/30/22 Cocaine-induced psychotic disorder Discharge Diagnosis 11/30/22 Agitation Discharge Diagnosis 11/30/22 Nonadherence to medication Discharge Diagnosis 11/30/22 Psychotic disorder Discharge Diagnosis 11/30/22 Delusion Discharge Diagnosis 11/30/22 Depressive disorder Discharge Diagnosis 11/30/22 Vital Signs Most recent to oldest [Reference Range]: 1 2 3 Height 183 cm (12/02/22 12:35 AM) 183 cm (12/01/22 3:30 PM) 183 cm (11/30/22 9:50 PM) Weight 86.5 kg (12/02/22 12:35 AM) 86.5 kg (12/01/22 3:30 PM) 86.5 kg (11/30/22 9:50 PM) Oxygen Saturation [94-100 %] 100 % (12/02/22 10:10 AM) 100 % (12/02/22 12:35 AM) 98 % (12/01/22 3:30 PM) Pulse Rate [55-90 bpm] 73 bpm (12/02/22 10:10 AM) 98 bpm *H* (12/02/22 12:35 AM) 78 bpm (12/01/22 3:30 PM) Body Mass Index [18.5-24.99 kg/m2] 25.83 kg/m2 *H* (12/02/22 12:35 AM) 25.83 kg/m2 *H* (12/01/22 3:30 PM) 25.83 kg/m2 *H* (11/30/22 9:50 PM) Blood Pressure [90-138/55-84 mm Hg] 150/96mm Hg *H* (12/02/22 10:10 AM) 139/90mm Hg *H* (12/02/22 12:35 AM) 130/80mm Hg (12/01/22 3:30 PM) Respiratory Rate [16-30 br/min] 17 br/min (12/02/22 10:14 AM) 17 br/min (12/02/22 10:10 AM) 18 br/min (12/02/22 12:35 AM) Temperature [96.8-100.4 DegF] 98.4 DegF (12/02/22 10:10 AM) 98.5 DegF (12/02/22 12:35 AM) 98.2 DegF (12/01/22 3:30 PM) Mode of Delivery (Oxygen) Room air (12/02/22 10:10 AM) Room air (12/02/22 12:35 AM) Room air (12/01/22 3:30 PM) Blood pressure sites Arm, left (12/02/22 10:10 AM) Arm, left (12/02/22 12:35 AM) Arm, right (12/01/22 3:30 PM) Temperature Route Oral (12/02/22 10:10 AM) Oral (12/02/22 12:35 AM) Oral (12/01/22 3:30 PM) Dry Weight 86.5 kg (12/02/22 12:35 AM) 86.5 kg (12/01/22 3:30 PM) 86.5 kg (11/30/22 9:50 PM) Weight Obtained Via Patient/family state d (11/29/22 7:24 PM) Dry Weight Obtained Via Patient/family s tated (11/29/22 7:24 PM) Social History Social History Type Response Tobacco Use: 4 or less cigar ettes(less than 1/4 pack)/day in last 30 days, Marijuana daily . Sex Male Patient Care team information Care Team Personnel Name: Dyan Nguyễn RN Position: [facility] RN Member Role: Primary Care Nurse Name: Not on Staff, PCP Position: [facility] Physician (General Medicine) Member Role: PCP Name: Emma Bliss RN Position: [facility] RN Member Role: Primary Care Nurse Name: *[facility], ED Attending Position: [facility] ED Attendings Patient Name: Laverne Zimmerman MD Position: [facility] Resident Member Role: Admitting Physician Address: Address: [address] [place] [address] Emergency Medicine [address] Name: Lissa SANDERSON, Vini Canseco Position: [facility] ED RN W/OE and Tasks Member Role: Patient Care Provider Care Team Related Persons Name: SHARAD BARCENAS Address: [address] [address] Name: JAMIE GOVEA
--- OUTSIDE RECORDS SUMMARY | 2023-04-08 14:22 | XMS_ITS | Continuity of Care Document ---
Author Name Unknown Organization [facility] Address [address] [place] [address]- Care Team Providers Care Management Supervisor Name Role Phone Not on Staff, PCP Primary Care Physician Unavail able Encounter [facility] Date(s): 12/21/22 - 12/21/[address] [address]- Encounter Diagnosis Disorder of psychological development(Final) - 12/21/22 Discharge Disposition: A-D/C Home Attending Physician: Romero Jimenes MD Admitting Physician: Romero Jimenes MD Referring Physician: Not on Staff, Referring [...] 11/26/22 10:11:00 EDT, Route to Pharmacy Electronically, [facility], Partial fill upon patient req... Start Date: 11/26/22 Stop Date: 12/24/22 Status: Ordered fluticasone 50 mcg/inh nasal spray 1 sprays = 50 mcg, Nares, Both, 2 times a day, PRN Nasal Congestion, # 16 Gm, 0 Refills, Maintenance, 05/19/20 9:17:00 EST, Nasal [place], [facility] #[id number], Partial fill upon patient requestif the prescription is for a schedule II opioid silvia... Start Date: 05/19/20 Stop Date: 06/18/20 Status: Ordered hydrOXYzine pamoate 50 mg oral capsule 1 capsule = 50 mg, By Mouth, 3 times a day, PRN for anxiety, TAKE ONE CAPSULE BY MOUTH THREE TIMES DAILY NEEDED FOR ANXIETY, # 90 capsule, 0 Refills, Maintenance, 11/26/22 10:12:00 EDT, Capsule, [facility], Partial fill upon patient r... Start Date: 11/26/22 Stop Date: 12/26/22 Status: Ordered lidocaine 5% topical film 1 patch, Topically, Daily, for 30 days, APPLY ONE PATCH TO RIGHT LEG DAILY FOR PAIN RELIEF, # 30 patch, 0 Refills, Acute 12/26/22 10:14:00 EDT, 11/26/22 10:14:00 EDT, Patch, [facility],Partial fill upon patient request if the prescripti... Start Date: 11/26/22 Stop Date: 12/26/22 Status: Ordered nicotine 14 mg/24 hr transdermal film, extended release 1 patch, Topically, Daily, for 14 days, # 14 patch, 1 Refills, Acute 12/24/22 10:12:00 EDT, 11/26/22 10:12:00 EDT, Patch, [facility], Partial fill upon patient request if the prescription is for a schedule II opioid drug., 1 patch Topica... Start Date: 11/26/22 Stop Date: 12/24/22 Status: Ordered Nicotine 2 mg gum = 2 mg, Chew, Every 3 hours, PRN Other, cigarette craving, # 160 each, 0 Refills, Maintenance, 05/19/20 9:18:00 EST, Gum, [facility] #[id number], Partial fill upon patient request if the [...] Exam Date Time Procedure Performing Provider Status 12/21/22 4:22 AM Chest 2 Views Frontal and Lat Sergey Good; Auth (Verified) Notes: (Chest 2 Views Frontal and Lat) Reason For Exam: Shortness of Breath RESULT: Chest 2 Views Frontal and Lat Chest 2 Views Frontal and Lat Hx of Present Illness: pt here today with complaints of SOB-states hes been walking all day, and ate something tonight that made him nauseous; Reason: Shortness of Breath; Clinical Question(s): CHF COMPARISON: None. FINDINGS: LINES AND TUBES: None. LUNGS AND PLEURA: Low lung volumes with mild basilar atelectasis. Lungs are otherwise clear with no consolidation. No pleural effusion. No pneumothorax. HEART, MEDIASTINUM AND LEV: Heart is normal in size. Normal mediastinal and hilar contour. BONES AND SOFT TISSUES: No acute abnormality. IMPRESSION: Low lung volumes with mild basilar atelectasis. Lungs are otherwise clear with no consolidation. WSN: [id number] Ordering Physician: Pam Abdi Dictated By: Chester Pérez MD Dictated Date/Time: 12/21/22 6:23 am Reviewed By: Chester Pérez MD Signed By: Chester Pérez MD Signed Date/Time: 12/21/22 6:23 am Transcribed By: FELIZ Transcribed Date/Time: 12/21/22 6:23 am Vital Signs Most recent to oldest [Reference Range]: 1 2 3 Height 183 cm (12/21/22 1:59 PM) 183 cm (12/21/22 12:16 AM) Weight 91 kg (12/21/22 1:59 PM) 91 kg (12/21/22 12:16 AM) Oxygen Saturation [94-100 %] 100 % (12/21/22 3:45 PM) 100 % (12/21/22 1:59 PM) 95 % (12/21/22 3:51 AM) Pulse Rate [55-90 bpm] 64 bpm (12/21/22 3:45 PM) 72 bpm (12/21/22 1:59 PM) 84 bpm (12/21/22 3:51 AM) Body Mass Index [18.5-24.99 kg/m2] 27.17 kg/m2 *H* (12/21/22 1:59 PM) 27.17 kg/m2 *H* (12/21/22 12:16 AM) Blood Pressure [90-138/55-84 mm Hg] 136/84mm Hg (12/21/22 3:45 PM) 154/93mm Hg *H* (12/21/22 1:59 PM) 123/64mm Hg (12/21/22 3:51 AM) Respiratory Rate [16-30 br/min] 16 br/min (12/21/22 3:45 PM) 14 br/min *L* (12/21/22 1:59 PM) 16 br/min (12/21/22 3:51 AM) Temperature [96.8-100.4 DegF] 97.8 DegF (12/21/22 1:59 PM) 97.5 DegF (12/21/22 12:16 AM) Mode of Delivery (Oxygen) Room air (12/21/22 3:45 PM) Room air (12/21/22 1:59 PM) Room air (12/21/22 3:51 AM) Blood pressure sites Arm, left (12/21/22 3:45 PM) Arm, left (12/21/22 1:59 PM) Arm, right (12/21/22 3:51 AM) Temperature Route Oral (12/21/22 1:59 PM) Oral (12/21/22 12:16 AM) Weight Obtained Via Patient/family state d (12/21/22 12:16 AM) Social History Social History Type Response Tobacco Use: 4 or less cigar ettes(less than 1/4 pack)/day in last 30 days, Marijuana daily . Sex Male Note * Jalil RODNEY, Romero Pérez: SIGN, VERIFY, PERFORM Event Display: Patient Education Handout Authored Date: [id number] Patient Care team information Care Team Personnel Name: Dyan Nguyễn RN Position: [facility] RN Member Role: Primary Care Nurse Name: Not on Staff, PCP Position: [facility] Physician (General Medicine) Member Role: PCP Name: Emma Bliss RN Position: [facility] RN Member Role: Primary Care Nurse Name: *[facility], ED Attending Position: [facility] ED Attendings Patient Name: Romero Jimenes MD Position: [facility] ED Medicine MD Member Role: Admitting Physician Address: Address: [address] [place] [id number] Name: Azra Lassiter Position: [facility] ED RN W/OE and Tasks Member Role: Patient Care Provider Name: Jacques Albright Position: [facility] ED TA [facility] Member Role: Patient Care Provider Care Team Related Persons Name: SHARAD BARCENAS Address: home [address] [place] [id number] Name: JAMIE GOVEA
--- OUTSIDE RECORDS SUMMARY | 2023-04-08 14:22 | XMS_ITS | Continuity of Care Document ---
Author Name Unknown Organization [facility] ter Address [address] [place] [address]- Care Team Providers Care Polysom Tech Name Role Phone Not on Staff, PCP Primary Care Physician Unavail able Encounter [facility] Date(s): 11/05/22 - 11/06/[address] [address]- Encounter Diagnosis Polysubstance use disorder(Final) - 11/06/22 Schizophrenia(Final) - 11/06/22 Discharge Disposition: A-D/C Home Attending Physician: Alton Rm MD Admitting Physician: Alton Rm MD Referring Physician: Not on Staff, Referring [...] 07/19/20 8:44:00 EST, Route to Pharmacy Electronically, [id number], Partial fill upon patient request if the prescription is for a schedule II opi... Start Date: 07/19/20 Status: Ordered fluticasone 50 mcg/inh nasal spray 1 sprays = 50 mcg, Nares, Both, 2 times a day, PRN Nasal Congestion, # 16 Gm, 0 Refills, Maintenance, 05/19/20 9:17:00 EST, [facility]al [place], [facility] #[id number], Partial fill upon patient requestif the prescription is for a schedule II opioid silvia... Start Date: 05/19/20 Stop Date: 06/18/20 Status: Ordered hydrOXYzine pamoate 50 mg oral capsule 1 capsule = 50 mg, By Mouth, 3 times a day, PRN for anxiety, # 90 capsule, 0 Refills, Maintenance, 05/19/20 9:19:00 EST, Capsule, [facility] #[id number], Partial fill upon patient request if theprescription is for a schedule II opioid drug., 182... Start Date: 05/19/20 Stop Date: 06/18/20 Status: Ordered ibuprofen 600 mg oral tablet 600 mg, 1, tablet, By Mouth, Every 8 hours, # 20 tablet, Refills 0, Tot. Refills 0, Maintenance, 12/19/20 13:05:00 EDT, Route to Pharmacy Electronically, [facility]pharmacy #[id number], Partial fill upon patientrequest if the prescription is for a schedule II op... Start Date: 12/19/20 Status: Ordered ibuprofen 600 mg oral tablet 600 mg, 1, tablet, By Mouth, Every 8 hours, # 30 tablet, Refills 0, Tot. Refills 0, Maintenance, 07/25/20 10:28:00 EST, Route to Pharmacy Electronically, [facility]/pharmacy #[id number], Partial fill upon patientrequest if the prescription is for a schedule II op... Start Date: 07/25/20 Status: Ordered KlonoPIN 0.5 mg oral tablet 1 tablet = 0.5 mg, By Mouth, 2 times a day, # 60 tablet, 0 Refills, Maintenance, 07/19/20 8:44:00 EST, Tablet, [facility]/pharmacy #[id number], Partial fill upon patient request if the prescription is for a schedule II opioid drug., 183, cm, 07/18/20 20:00:00 EST,... Start Date: 07/19/20 Stop Date: 08/18/20 Status: Ordered lamotrigine 25 mg oral tablet See Instructions, TAKE 2 TABLETS BY MOUTH DAILY, # 60 tablet, Refills 0, Maintenance, 07/09/22 18:16:00 EST, Instructions Replace Required Details, Route to Pharmacy Electronically, [facility] #[id number], 183, cm, 07/19/20 8:59:00 EST, Height, 1... Start Date: 07/09/22 Status: Ordered lithium 300 mg oral tablet 1 tablet = 300 mg, By Mouth, 2 times a day, # 60 tablet, 0 Refills, Maintenance, 07/19/20 8:45:00 EST, Tablet, [facility]/pharmacy #[id number], Partial fill upon patient request if the prescription is for a schedule II opioid drug., 183, cm, 07/18/20 20:00:00 EST,... Start Date: 07/19/20 Stop Date: 08/18/20 Status: Ordered Nicotine 2 mg gum = 2 mg, Chew, Every 3 hours, PRN Other, cigarette craving, # 160 each, 0 Refills, Maintenance, 05/19/20 9:18:00 EST, Gum, [facility] #[id number], Partial fill upon patient request if the prescription is for a schedule II opioid drug., 182, cm, 12... Start Date: 05/19/20 Stop Date: 06/16/20 Status: Ordered nicotine 21 mg/24 hr transdermal film, extended release 1 patch, Topically, Daily, # 30 patch, 0 Refills, Maintenance, 05/19/20 9:19:00 EST, Patch, [facility] #[id number], Partial fill upon patient request if the prescription is for a schedule II opioid drug., 1 patch Topically Daily,x30 days, 182, cm... Start Date: 05/19/20 Stop Date: 06/18/20 Status: Ordered prazosin 1 mg oral capsule See Instructions, TAKE 2 CAPSULES BY MOUTH DAILY AT BEDTIME, # 60 capsule, Refills 0, Maintenance, 07/09/22 18:17:00 EST, Instructions Replace Required Details, Route to Pharmacy Electronically, [facility] #[id number], 183, cm, 07/19/20 8:59:00 E... Start Date: 07/09/22 Status: Ordered prazosin 2 mg oral capsule 1 capsule = 2 mg, By Mouth, Daily at bedtime, # 30 capsule, 0 Refills, Maintenance, 07/19/20 8:43:00 EST, [facility]/pharmacy #[id number], Partial fill upon patient request if the prescription is for a schedule II opioid drug., 183, cm, 07/18/20 20:00:00 EST, Heig... Start Date: 07/19/20 Stop Date: 08/18/20 Status: Ordered QUEtiapine 100 mg oral tablet 300 mg, 3, tablet, By Mouth, Daily at bedtime, # 90 tablet, Refills 0, Tot. Refills 0, Maintenance,07/19/20 8:43:00 EST, Route to Pharmacy Electronically, [facility]/pharmacy #[id number], Partial fill upon patient request if the prescription is for a schedule II... Start Date: 07/19/20 Stop Date: 08/18/20 Status: Ordered QUEtiapine 100 mg oral tablet 100 mg, 1, tablet, By Mouth, Daily, Daily at 3pm, # 30 tablet, Refills 0, Tot. Refills 0, Maintenance, 07/19/20 8:43:00 EST, Route to Pharmacy Electronically, [facility]/pharmacy #[id number], Partial fill upon patient request if the prescription is for a schedule... Start Date: 07/19/20 Stop Date: 08/18/20 Status: Ordered QUEtiapine 100 mg oral tablet See Instructions, TAKE 1 TABLET BY MOUTH TWICE DAILY(IN THE MORNING, AND IN THE AFTERNOON), # 60 tablet, Refills 0, Maintenance, 07/09/22 18:17:00 EST, Instructions Replace Required Details, Route toPharmacy Electronically, [facility] #[id number]... Start Date: 07/09/22 Status: Ordered QUEtiapine 300 mg oral tablet See Instructions, TAKE 1 TABLET BY MOUTH DAILY AT BEDTIME, # 30 tablet, 0 Refills, Maintenance, 07/09/22 18:18:00 EST, [facility] #[id number], 183, cm, 07/19/20 8:59:00 EST, Height, 109.7, kg, 07/15/20 14:45:00 EST, Dry Weight Start Date: 07/09/22 Status: Ordered SEROquel 200 mg oral tablet 200 mg, 1, tablet, By Mouth, Daily, # 30 tablet, Refills 0, Tot. Refills 0, Maintenance, 07/19/20 8:43:00 EST, Route to Pharmacy Electronically, [facility]/pharmacy #[id number], Partial fill upon patient request if the prescription is for a schedule II opioid drug... Start Date: 07/19/20 Stop Date: 08/18/20 Status: Ordered traZODone 50 mg oral tablet See Instructions, TAKE 1 TABLET BY MOUTH AT BEDTIME NEEDED FOR INSOMNIA, # 30 tablet, Refills 0,Maintenance, 07/09/22 18:18:00 EST, Instructions Replace Required Details, Route to Pharmacy Electronically, [facility] #[id number], 183, cm, 020... Start Date: 07/09/22 Status: Ordered Vital Signs Most recent to oldest [Reference Range]: 1 2 3 Height 185 cm (11/06/22 8:37 AM) 185 cm (11/06/22 5:46 AM) 185 cm (11/05/22 10:56 PM) Weight 86.5 kg (11/06/22 8:37 AM) 86.5 kg (11/06/22 5:46 AM) 86.5 kg (11/05/22 10:56 PM) Oxygen Saturation [94-100 %] 100 % (11/06/22 8:37 AM) 99 % (11/06/22 5:46 AM) 100 % (11/06/22 3:12 AM) Pulse Rate [55-90 bpm] 69 bpm (11/06/22 8:37 AM) 67 bpm (11/06/22 5:46 AM) 52 bpm *L* (11/06/22 3:12 AM) Body Mass Index [18.5-24.99 kg/m2] 25.27 kg/m2 *H* (11/06/22 8:37 AM) 25.27 kg/m2 *H* (11/06/22 5:46 AM) 25.27 kg/m2 *H* (11/05/22 10:53 PM) Blood Pressure [90-138/55-84 mm Hg] 146/93mm Hg *H* (11/06/22 8:37 AM) 138/86mm Hg (11/06/22 5:46 AM) 142/88mm Hg *H* (11/06/22 3:12 AM) Respiratory Rate [16-30 br/min] 16 br/min (11/06/22 8:37 AM) 20 br/min (11/06/22 5:46 AM) 16 br/min (11/06/22 3:12 AM) Temperature [96.8-100.4 DegF] 98.4 DegF (11/06/22 8:37 AM) 97.7 DegF (11/05/22 10:53 PM) Mode of Delivery (Oxygen) Room air (11/06/22 8:37 AM) Room air (11/06/22 5:46 AM) Room air (11/06/22 3:12 AM) Blood pressure sites Arm, right (11/06/22 8:37 AM) Temperature Route Oral (11/06/22 8:37 AM) Oral (11/05/22 10:53 PM) Dry Weight 86.5 kg (11/06/22 8:37 AM) 86.5 kg (11/06/22 5:46 AM) 86.5 kg (11/05/22 10:56 PM) Social History Social History Type Response Tobacco Use: 4 or less cigar ettes(less than 1/4 pack)/day in last 30 days, Marijuana daily . Sex EKG study * Event Display: ECG 12-Lead Authored Date: Please click on pdf link to open report * Event Display: ECG 12-Lead Authored Date: Ventricular Rate: 55 BPM Atrial Rate: 55 BPM P-R Interval: 134 ms QRS Duration: 86 ms Q-T Interval: 442 ms QTC Calculation(Bazett): 422 ms P Transfer: 63 degrees R Transfer: 71 degrees T Transfer: 46 degrees Sinus bradycardia Nonspecific ST and T wave abnormality Abnormal ECG When compared with ECG of 06-NOV-2022 00:03, Junctional rhythm is no longer Present Confirmed by NOMAN QUIROS MD ([id number]) on 11/06/2022 12:51:43 PM [place]: NOMAN QUIROS MD * Event Display: ECG 12-Lead Authored Date: Please click on pdf link to open report * Event Display: ECG 12-Lead Authored Date: Ventricular Rate: 49 BPM Atrial Rate: 49 BPM P-R Interval: 136 ms QRS Duration: 98 ms Q-T Interval: 444 ms QTC Calculation(Bazett): 401 ms P Transfer: 56 degrees R Transfer: 81 degrees T Transfer: 24 degrees Sinus bradycardia Alternating with Junctional rhythm Nonspecific T wave abnormality Abnormal ECG When compared with ECG of 13-JUL-2020 12:03, Vent. rate has decreased BY 34 BPM Confirmed by NOMAN QUIROS MD ([id number]) on 11/06/2022 12:51:23 PM [place]: NOMAN QUIROS MD Patient Care team information Care Team Personnel Name: Dyan Nguyễn RN Position: S RN Member Role: Primary Care Nurse Name: Not on Staff, PCP Position: [facility] Physician (General Medicine) Member Role: PCP Name: Emma Bliss RN Position: [facility] RN Member Role: Primary Care Nurse Name: *[facility], ED Attending Position: [facility] ED Attendings Patient Name: Diana Galaviz Position: [facility] ED TA [facility] Name: Alton Rm MD Position: [facility] ED Medicine MD Member Role: Admitting Physician Address: Address: [address] [place] [id number] Name: Evy Josue Position: [facility] ED RN W/OE and Tasks Member Role: Patient Care Provider Name: Dena Moss RN Position: [facility] ED RN W/OE and Tasks Member Role: Patient Care Provider Care Team Related Persons Name: SHARAD BARCENAS Address: [address] [address] Name: JAMIE GOVEA
--- OUTSIDE RECORDS SUMMARY | 2023-04-08 14:22 | XMS_ITS | Continuity of Care Document ---
Author Name Unknown Organization [facility] Address [address] [place] [id number]- Care Team Providers Care Group Contract Analyst Name Role Phone Not on Staff, PCP Primary Care Physician Unavail able Encounter [facility] Date(s): 12/29/22 - 12/29/[address] [address]- Encounter Diagnosis Schizoaffective disorder(Final) - 12/29/22 Polysubstance abuse(Final) - 12/29/22 Housing instability(Final) - 12/29/22 Discharge Disposition: A-D/C Home Attending Physician: Jayda Bowers MD Admitting Physician: Jayda Bowers MD Referring Physician: Not on Staff, Referring [...] 11/26/22 10:11:00 EDT, Route to Pharmacy Electronically, [facility], Partial fill upon patient req... [...] 0 Refills, Maintenance, 05/19/20 9:17:00 EST, [place], [facility] #[id number], Partial fill upon patient requestif the prescription is for a schedule II opioid silvia... Start Date: 05/19/20 Stop Date: 06/18/20 Status: Ordered hydrOXYzine pamoate 50 mg oral capsule 1 capsule = 50 mg, By Mouth, 3 times a day, PRN for anxiety, TAKE ONE CAPSULE BY MOUTH THREE TIMES DAILY NEEDED FOR ANXIETY, # 90 capsule, 0 Refills, Maintenance, 11/26/22 10:12:00 EDT, Capsule, [facility], Partial fill upon patient r... Start Date: 11/26/22 Stop Date: 12/26/22 Status: Ordered hydrOXYzine pamoate 50 mg oral capsule TAKE 1 CAPSULE BY MOUTH THREE TIMES A DAY NEEDED FOR ANXIETY Start Date: 12/25/22 Status: Ordered lithium 150 mg oral capsule TAKE 1 CAPSULE BY MOUTH TWICE A DAY Start Date: 12/25/22 Status: Ordered Methadone Tablet 20 mg, Tablet, By Mouth, Once, STAT, 12/29/22 9:19:00 EDT, Stop date 12/29/22 9:19:00 EDT Start Date: 12/29/22 Stop Date: 12/29/22 Status: Completed nicotine 14 mg/24 hr transdermal film, extended release APPLY 1 PATCH TOPICALLY EVERY DAY Start Date: 12/25/22 Status: Ordered Nicotine 2 mg gum = 2 mg, Chew, Every 3 hours, PRN Other, cigarette craving, # 160 each, 0 Refills, Maintenance, 05/19/20 9:18:00 EST, Gum, [facility] #[id number], Partial fill upon patient request if the [...] 3 Oxygen Saturation [94-100 %] 98 % (12/29/22 12:08 PM) 99 % (12/29/22 9:11 AM) Pulse Rate [55-90 bpm] 62 bpm (12/29/22 12:08 PM) 62 bpm (12/29/22 9:11 AM) Blood Pressure [90-138/55-84 mm Hg] 118/72mm Hg (12/29/22 12:08 PM) 119/77mm Hg (12/29/22 9:11 AM) Respiratory Rate [16-30 br/min] 18 br/min (12/29/22 12:08 PM) 16 br/min (12/29/22 9:48 AM) 16 br/min (12/29/22 9:11 AM) Temperature [96.8-100.4 DegF] 98.2 DegF (12/29/22 9:11 AM) Mode of Delivery (Oxygen) Room air (12/29/22 12:08 PM) Room air (12/29/22 9:11 AM) Temperature Route Oral (12/29/22 9:11 AM) Social History Social History Type Response Tobacco Use: 4 or less cigar ettes(less than 1/4 pack)/day in last 30 days, Marijuana daily . Sex Male Patient Care team information Care Team Personnel Name: Dyan Nguyễn RN Position: [facility] RN Member Role: Primary Care Nurse Name: Not on Staff, PCP Position: [facility] Physician (General Medicine) Member Role: PCP Name: Emma Bliss RN Position: [facility] RN Member Role: Primary Care Nurse Name: Anushka Molina Position: [facility] ED TA [facility] Name: Courtney Mckenna DO Position: [facility] Resident Member Role: Resident Address: Address: [address] [place] [address] Name: Sheree Slaughter RN Position: [facility] ED RN W/OE and Tasks Member Role: Patient Care Provider Name: Jayda Bowers MD Position: [facility] ED Medicine MD Member Role: Admitting Physician Address: Address: [address] [place] [address] Care Team Related Persons Name: SHARAD BARCENAS Address: home [address] [place] [address] Name: JAMIE GOVEA
--- NOTE | 2023-04-08 15:50 | P.CONHOSP_ITS ---
History of Present Illness Data of Consult Service Date: 04/08/23 Requesting physician: Pantera Oliva Primary Care Provider: Unknown Physician HPI Reason for consult: medical H&P 32-year-old male with history of schizoaffective disorder, bipolar disorder, PTSD, cocaine use disorder admitted to Psychiatry with consult placed to hospitalist service for medical H and P. He was admitted from [facility] ED. ED records reviewed. Hematology studies significant for a normocytic anemia with H/H 11.7/35.3%, MCV 90.3. Renal function normal, electrolyte levels normal except for slightly elevated bicarb of 30. Hepatic function within normal limits. Glucose 133. TSH 0.85. Ethyl alcohol level undetectable. Urine tox screen positive for cannabis and cocaine. Urinalysis unremarkable. EKG shows sinus bradycardia, rate 49, no ST/T-wave abnormality. Venous duplex of the bilateral lower extremity ordered due to swelling in the bilateral lower legs with discomfort. Study was negative for DVT. Chest x-ray unremarkable including for evidence of CHF. Given history of bilateral lower extremity cellulitis, patient was started on Keflex at [facility] ED. Reports redness and swelling has improved. He is afebrile and there is no leukocytosis. Review of Systems Review of Systems: General: No fevers, malaise, unintentional weight loss HEENT: No blurred vision, diplopia. No sore throat, nasal congestion, rhinorrhea, sinus pain, ear pain Cardiovascular: No chest pain, palpitations. +BLE edema Respiratory: No shortness of breath, wheezing, cough GI: No abdominal pain, nausea, vomiting, diarrhea, constipation, melena, hematochezia : No dysuria, hematuria, increased urinary frequency, decreased urinary output MSK: No myalgia, back pain Neuro: No headaches, weakness, paresthesias Skin: No rashes or lesions [facility] Medical History (Updated 04/08/23 @ 16:37 by SHIRA Salazar) PTSD (post-traumatic stress disorder) Bipolar disorder Schizoaffective disorder Cocaine use disorder Opioid dependence Asthma Social History Advance Directives: No Advance Directives Information Provided: No Meds Allergies Allergy/AdvReac Type Severity Reaction Status Date / Time chocolate flavor Allergy Unknown UNKNOWN Unverified 03/02/20 18:23 [CHOCOLATE FLAVOR] milk [MILK] Allergy Unknown UNKNOWN Unverified 03/02/20 18:23 Active Medications: Current Medications Acetaminophen (Acetaminophen 325 Mg Tablet) 650 mg PO Q6H PRN PRN Reason: Headache/Pain Mild Scale (1-3) Al Hydroxide/Mg Hydroxide (Magnesium Hydrox/Alum Hydrox 30 Ml Oral.Susp) 30 ml PO Q6H PRN PRN Reason: Heartburn/Nausea Hydroxyzine HCl (Hydroxyzine Hcl 25 Mg Tablet) 25 mg PO Q6H PRN PRN Reason: Anxiety Magnesium Hydroxide (Milk Of Magnesia 30 Ml Oral.Susp) 30 ml PO DAILY PRN PRN Reason: Constipation Nicotine Polacrilex (Nicotine Polacrilex 2 Mg Gum) 4 mg BUCCAL Q2H PRN PRN Reason: Nicotine Cravings Olanzapine (Olanzapine 5 Mg Tablet) 5 mg PO TID PRN PRN Reason: agitation Trazodone HCl (Trazodone Hcl 50 Mg Tablet) 50 mg PO BEDTIME MRX1 PRN PRN Reason: Insomnia Home Medications Medication Instructions Recorded Confirmed Last Taken Type clonazepam 0.5 mg tablet 0.5 mg PO BID PRN anxiety 04/08/23 04/08/23 Unknown History clonazepam 0.5 mg tablet 0.5 mg PO BID PRN anxiety 04/08/23 04/08/23 Unknown History clonazepam 1 mg tablet 1 mg PO BEDTIME 04/08/23 04/08/23 Unknown History clonidine HCl 0.1 mg tablet 0.1 mg PO BID PRN anxiety 04/08/23 04/08/23 Unknown History clonidine HCl 0.1 mg tablet 0.1 mg PO BID PRN anxiety 04/08/23 04/08/23 Unknown History diazepam 10 mg tablet 10 mg PO TID PRN anxiety 04/08/23 04/08/23 Unknown History hydroxyzine pamoate 50 mg capsule 50 mg PO TID PRN Anxiety 04/08/23 04/08/23 Unknown History lithium carbonate 150 mg capsule 150 mg PO BID 04/08/23 04/08/23 Unknown History nicotine (polacrilex) 2 mg gum 2 mg PO Q3H PRN nicotine cravings 04/08/23 04/08/23 Unknown History nicotine 14 mg/24 hr daily 1 patch topical DAILY 04/08/23 04/08/23 Unknown History transdermal patch quetiapine 100 mg tablet 100 mg PO DAILY 04/08/23 04/08/23 Unknown History quetiapine 100 mg tablet 100 mg PO DAILY PRN anxiety 04/08/23 04/08/23 Unknown History quetiapine 200 mg tablet 200 mg PO BEDTIME Anxiety 04/08/23 04/08/23 Unknown History Physical Exam Vital Signs and Narrative: Constitutional - Awake and Alert, No apparent distress Eyes - PERRLA, EOMI Cardiovascular - S1S2, RRR, 1+ edema Respiratory - Normal lung expansion, Normal respiratory effort, No respiratory distress, CTA bilaterally Gastrointestinal - NT / ND; +BS; No rebound or guarding Extremities - no calf tenderness bilaterally, no swelling Musculoskeletal - Normal inspection, normal ROM. TTP at the level of about L4- L5, full flexion and extension Skin - Warm/Dry Neurological - Alert & oriented x3, CN II-XII in tact, 5/5 strength BUE and BLE, sensation in tact Psychological - Appropriate affect Assessment and Plan (1) Routine medical exam: Status: Acute Plan 32-year-old male with history of schizoaffective disorder, bipolar disorder, PTSD, cocaine use disorder admitted to Psychiatry with consult placed to hospitalist service for medical H and P. # schizoaffective disorder/bipolar disorder/PTSD -plan per Psychiatry # cellulitis of the bilateral lower extremities -legs do not appear acutely cellulitic and there is no leukocytosis or fevers. However patient reports he was started on Keflex in the ED and has noted improvement in the redness and swelling in the lower legs -will continue Keflex 500 mg q.i.d. x7 days # cocaine use disorder -plan per Psychiatry # nicotine dependence -actively working on cessation, counseling provided -nicotine patches, gum #Acute low back pain -no saddle anesthesia, bowel/bladder incontinence, paresthesias -Tylenol, lidocaine patches -tizanidine p.r.n. #Opioid dependence -patient reports he takes Suboxone through [facility] clinic -I do not see this on his med list, please confirm and resume with appropriate Thank you for allowing me to participate in this consult. Signing off at this time. Please do not hesitate to call for further questions. Time Spent With Patient Time: Total time managing care of this patient today ____ minutes.
[2023-04-08 16:35] VITALS: BP 133/83; PULSE 79; TEMP 36.1; O2SAT 98
[2023-04-08] MEDS: Lidocaine 4 % Patch ADH..PATCH 1 PATCH TRANSDERMA (17:31)
[2023-04-08] MEDS: cephALEXin 500 MG CAPSULE PO ×2 (17:31→22:37)
[2023-04-08] MEDS: Nicotine 14 MG PATCH.TD24 TRANSDERMA (17:31)
--- NOTE | 2023-04-08 21:48 | PC.ADMIT ---
Kyaw was admitted to at 1437 from [facility] on a CV for treatment of Schizoaffective Disorder, Opiate Use Disorder, Cocaine Use Disorder and HI. Per Crisis assessment, pt had been residing in [facility] and eloped on 04/06/23. Pt went to grandmother?s house where he experienced HI/, but is denying current SI/HI/SIBI. When presenting at [facility], pt had swollen scratched legs due to delusion of snakes and bugs in his bed at [facility] requiring Iv and oral antibiotics at [facility], also treated for dehydration. Pt has poor focus. Pt is tired, falling asleep during assessment. Pt has thought blocking and does appear to be responding to internal stimuli, but denies AH/VH. Pt denies SI/HI at this time. Provider is aware of admission and orders are placed. Begin treatment plan and monitor for safety. Pt is placed on 15 minute safety checks. Pt is safe on the unit.
[2023-04-08] MEDS: QUEtiapine Fumarate 200 MG TABLET PO (22:36)
[2023-04-08] MEDS: clonazePAM 0.5 MG TABLET PO (22:38)
[2023-04-09] MEDS: cephALEXin 500 MG CAPSULE PO ×4 (05:04→21:08)
[2023-04-09 06:15] VITALS: BP 137/67; PULSE 86; RESP 18; TEMP 36.3; O2SAT 98
[2023-04-09] MEDS: Lithium Carbonate 300 MG TABLET 150 MG PO ×2 (09:16→21:08)
[2023-04-09] MEDS: QUEtiapine Fumarate 100 MG TABLET PO (09:17)
[2023-04-09 09:32] LABS: Estimated Average Glucose 105 mg/dL; Hemoglobin A1c % 5.3 % (<6.0)
--- NOTE | 2023-04-09 09:45 | HO.PSYADMNOT ---
HPI Date of Service: 04/09/23 Chief Complaint: Schizoaffective disorder, opiate use disorder Sources of Information: patient interviewed, chart reviewed and crisis/core team assessment reviewed HPI Subjective Notes: Conditional Voluntary and 3 Day Narrative: Patient is a 32-year-old male with history of Schizoaffective disorder, bipolar type, opiate/cocaine abuse, on Suboxone with history of multiple psychiatric admissions who presents for dysregulated behavior in the community.? According to report, Patient was living at a residential program, [facility] however he eloped.? Staff reported that patient has not been sleeping, up all hours of the night, talking to himself, acting bizarre; he went to his grandmother's house was acting dysregulated there, jumping on the couch and barricaded himself in her bathroom; he was also complaining of bugs and snakes that were on him and he subsequently scratched his leg until it got infected and is now on antibiotic. On the unit, patient is currently a limited historian, very agitated on approach, yelling and angry that his money it was missing (which was later found to be at [facility]); he was willing to take Haldol and Ativan p.o. He was able to calm down some and shared that he knows it is possible that his concern about snakes and bugs are a delusion which can be induced by not sleeping for several days; however he is not sure if it is a hallucination and worries that someone else may get bit or over happen to him if he got bit. Patient however responded to reality testing. Patient was sleepy from medication and asked to continue interview tomorrow. Agreed to continue home medication regimen Past Psychiatric History: Multiple psychiatric admissions Medical Evaluation Reviewed: Hospitalist Susanne Pending [facility] Medical History (Updated 04/10/23 @ 09:12 by Pantera Oliva MD) PTSD (post-traumatic stress disorder) Bipolar disorder Schizoaffective disorder Cocaine use disorder Opioid dependence Asthma Family History: Deferred for now Social History: Was living at a residential program, [facility], however he eloped Substance History: Cocaine and opiate abuse, currently on Suboxone Trauma History: For Diagnostics Vital Signs (24Hr): Vital Signs - 24 hr 04/08/23 16:35 04/09/23 06:15 Temperature 96.9 F 97.4 F Pulse Rate 79 86 Respiratory Rate 18 Blood Pressure 133/83 137/67 Pulse Oximetry 98 98 Oxygen Delivery Method Room Air Room Air Labs Labs: Laboratory Results - last 48 hr 04/09/23 08:30 Estimat Average Glucose 105 Hemoglobin A1c % 5.3 Meds/Allergies Meds Home Medications Medication Instructions Recorded Confirmed Type clonazepam 0.5 mg tablet 0.5 mg PO BID PRN anxiety 04/08/23 04/08/23 History clonazepam 0.5 mg tablet 0.5 mg PO BID PRN anxiety 04/08/23 04/08/23 History clonazepam 1 mg tablet 1 mg PO BEDTIME 04/08/23 04/08/23 History clonidine HCl 0.1 mg tablet 0.1 mg PO BID PRN anxiety 04/08/23 04/08/23 History clonidine HCl 0.1 mg tablet 0.1 mg PO BID PRN anxiety 04/08/23 04/08/23 History diazepam 10 mg tablet 10 mg PO TID PRN anxiety 04/08/23 04/08/23 History hydroxyzine pamoate 50 mg capsule 50 mg PO TID PRN Anxiety 04/08/23 04/08/23 History lithium carbonate 150 mg capsule 150 mg PO BID 04/08/23 04/08/23 History nicotine (polacrilex) 2 mg gum 2 mg PO Q3H PRN nicotine cravings 04/08/23 04/08/23 History nicotine 14 mg/24 hr daily 1 patch topical DAILY 04/08/23 04/08/23 History transdermal patch quetiapine 100 mg tablet 100 mg PO DAILY 04/08/23 04/08/23 History quetiapine 100 mg tablet 100 mg PO DAILY PRN anxiety 04/08/23 04/08/23 History quetiapine 200 mg tablet 200 mg PO BEDTIME Anxiety 04/08/23 04/08/23 History Allergies Allergies Allergy/AdvReac Type Severity Reaction Status Date / Time chocolate flavor Allergy Unknown UNKNOWN Unverified 03/02/20 18:23 [CHOCOLATE FLAVOR] Assessment & Plan Assessment & Plan (1) Schizoaffective disorder: Status: Acute Code(s): F25.9 - Schizoaffective disorder, unspecified (2) Cocaine use disorder: Status: Acute Code(s): F14.10 - Cocaine abuse, uncomplicated (3) Opioid dependence: Status: Acute Code(s): F11.20 - Opioid dependence, uncomplicated Plan Patient is a 32-year-old male with history of Schizoaffective disorder, bipolar type, opiate/cocaine abuse, on Suboxone with history of multiple psychiatric admissions who presents for dysregulated behavior in the community.? According to report, Patient was living at a residential program, [facility] however he eloped.? Staff reported that patient has not been sleeping, up all hours of the night, talking to himself, acting bizarre; he went to his grandmother's house was acting dysregulated there, jumping on the couch and barricaded himself in her bathroom; he was also complaining of bugs and snakes that were on him and he subsequently scratched his leg until it got infected and is now on antibiotic. On the unit, patient is currently a limited historian, very agitated on approach, yelling and angry that his money it was missing (which was later found to be at [facility]); he was willing to take Haldol and Ativan p.o. He was able to calm down some and shared that he knows it is possible that his concern about snakes and bugs are a delusion which can be induced by not sleeping for several days; however he is not sure if it is a hallucination and worries that someone else may get bit or over happen to him if he got bit. Patient however responded to reality testing. Patient was sleepy from medication and asked to continue interview tomorrow. Agreed to continue home medication regimen; later on patient apologized for angry behavior and for scaring staff. Plan: CV Q 15 minute checks Continue lithium 150 b.i.d. Continue Seroquel 100 mg q.a.m. (has been on 200 in the past) Continue Seroquel 200 mg q.h.s. (has been on 400 in the past) Continue Ceftin 500 mg b.i.d. (for total of 14 days for lower limb cellulitis) Haldol 5 mg p.r.n. Q4H and Ativan 2 mg p.r.n. q4H for agitation Sublicade 300mg qmonth, last filled 04/03/23 (unclear if administered) Seek collateral Reviewed labs from [facility]: CBC, lytes, BUN/creatinine, calcium, magnesium, LFTs, TSH all WNL UA WNL QTC 410 UDS +cocaine Patient educated on: diagnosis and medication risk/benefits Informed Consent: further education needed Reason for continued inpatient stay Substantial Risk for: inability to function Statement Statement: I have reviewed the history and physical and performed a pertinent examination on my patient. No changes have occurred unless specified. If the History and Physical was not performed prior to admission, the Hospitalist's service will be consulted for completing the admission physical. Time Spent With Patient Time: Total time managing care of this patient today ____ minutes.
[2023-04-09 09:52] LABS: Cholesterol 144 mg/dL (<200); HDL Cholesterol 48 mg/dL (>40); LDL Cholesterol Calculated 80 mg/dL (<100); Triglycerides 83 mg/dL (<150)
[2023-04-09 10:09] LABS: Thyroid Stimulating Hormone 1.52 uIU/mL (0.32-4.0)
[2023-04-09] MEDS: HaloperidoL 5 MG TABLET PO (12:45)
[2023-04-09] MEDS: LORazepam 1 MG TABLET 2 MG PO ×2 (12:45→16:56)
--- NOTE | 2023-04-09 13:47 | PC.NURSE ---
Pt signed 3 day notice up on saturday 04/14. , BERE, UR aware.
[2023-04-09] MEDS: Nicotine 14 MG PATCH.TD24 TRANSDERMA (16:31)
[2023-04-09] MEDS: Lidocaine 4 % Patch ADH..PATCH 1 PATCH TRANSDERMA (16:31)
[2023-04-09] MEDS: hydrOXYzine HCL 50 MG TABLET PO (16:31)
[2023-04-09] MEDS: QUEtiapine Fumarate 200 MG TABLET PO (21:08)
[2023-04-10] MEDS: cephALEXin 500 MG CAPSULE PO ×3 (06:39→20:12)
[2023-04-10 08:29] VITALS: BP 137/68; PULSE 90; RESP 16; TEMP 37.1; O2SAT 99
--- NOTE | 2023-04-10 09:20 | HO.PSYCHPN ---
Subjective Subjective Date of Service: 04/10/23 Reason For Visit: Schizoaffective disorder, opiate use disorder Interim History: Met with patient; discussed with team patient, polite, calm and with appropriate behaviors. He is with organized speech and behavior. He says that yesterday he got upset only because of a misunderstanding about his money but that he is at fully able to conduct himself appropriately which he says he will continue to do. Patient denies having acted in a dysregulated wild manner prior to admission. He says that he was drinking alcohol, 1/5 liquor every day for at least a week; denies any cocaine use Says that he likes the staff at [facility] a place. He said due to getting write ups for trivial things he was being discharged to another program, [facility] and he did not want to go so he left to go to his grandmother's. He said at his grandmother's he was acting normally. Denies barricading himself in the bathroom. Says his legs were cramping so maybe he screamed about his legs cramping but that was it. He said it was his mother who called crisis, not his grandmother and that they fabricated reports about his behavior being dysregulated. Patient did say he thought he saw a snake at the detention but he realizes he was probably mistaken. Patient then added that he was upset about his mattress , said that there was something in the mattress but that staff considered it to be delusional and thus would not exchanges mattress which patient said triggered part of the problem. He denies any SI or HI at all current or recent. Patient placed a 3 day notice; says he wants to go to residential program and that he is willing to go back to [facility] if they will have a Feels that Seroquel works but says he is not supposed to be on lithium. He agrees to continue lithium while senior copywriter reaches out to prescriber. Patient says he would like to be on clonazepam or Xanax; senior copywriter explained the problems with this given substance abuse which patient grudgingly accepted. Diagnostics Vital Signs (24Hr): Vital Signs - 24 hr 04/10/23 08:29 Temperature 98.8 F Pulse Rate 90 Respiratory Rate 16 Blood Pressure 137/68 Pulse Oximetry 99 Oxygen Delivery Method Room Air Labs Labs: Laboratory Results - last 48 hr 04/09/23 08:30 Estimat Average Glucose 105 Hemoglobin A1c % 5.3 Triglycerides 83 Cholesterol 144 LDL Cholesterol, Calc 80 HDL Cholesterol 48 TSH 1.52 Medications Medications Current Medications Acetaminophen (Acetaminophen 325 Mg Tablet) 650 mg PO Q6H PRN PRN Reason: Headache/Pain Mild Scale (1-3) Al Hydroxide/Mg Hydroxide (Magnesium Hydrox/Alum Hydrox 30 Ml Oral.Susp) 30 ml PO Q6H PRN PRN Reason: Heartburn/Nausea Cephalexin HCl (Cephalexin 500 Mg Capsule) 500 mg PO Q6H [facility] Stop: 04/15/23 10:46 Last Admin: 04/10/23 06:39 Dose: 500 mg Haloperidol (Haloperidol 5 Mg Tablet) 5 mg PO Q6H PRN PRN Reason: agitation, psychosis Last Admin: 04/09/23 12:45 Dose: 5 mg Hydroxyzine HCl (Hydroxyzine Hcl 25 Mg Tablet) 25 mg PO Q6H PRN PRN Reason: Anxiety Hydroxyzine HCl (Hydroxyzine Hcl 50 Mg Tablet) 50 mg PO Q8H PRN PRN Reason: Anxiety Last Admin: 04/09/23 16:31 Dose: 50 mg Lidocaine (Lidocaine 4 % Patch Adh..Patch) 1 patch TRANSDERMA DAILY [facility]; Protocol Last Admin: 04/09/23 16:31 Dose: 1 patch [place] Carbonate ([place] Carbonate 300 Mg Tablet) 150 mg PO BID [facility] Last Admin: 04/09/23 21:08 Dose: 150 mg Lorazepam (Lorazepam 1 Mg Tablet) 2 mg PO Q4H PRN PRN Reason: agitation Last Admin: 04/09/23 16:56 Dose: 2 mg Magnesium Hydroxide (Milk Of Magnesia 30 Ml Oral.Susp) 30 ml PO DAILY PRN PRN Reason: Constipation Nicotine (Nicotine 14 Mg Patch.Td24) 14 mg TRANSDERMA DAILY [facility] Last Admin: 04/09/23 16:31 Dose: 14 mg Nicotine Polacrilex (Nicotine Polacrilex 2 Mg Gum) 4 mg BUCCAL Q2H PRN PRN Reason: Nicotine Cravings Nicotine Polacrilex (Nicotine Polacrilex 2 Mg Gum) 2 mg BUCCAL Q3H PRN PRN Reason: nicotine cravings Olanzapine (Olanzapine 5 Mg Tablet) 5 mg PO TID PRN PRN Reason: AH Quetiapine Fumarate (Quetiapine Fumarate 100 Mg Tablet) 100 mg PO DAILY [facility] Last Admin: 04/09/23 09:17 Dose: 100 mg Quetiapine Fumarate (Quetiapine Fumarate 200 Mg Tablet) 200 mg PO BEDTIME [facility] Last Admin: 04/09/23 21:08 Dose: 200 mg Tizanidine HCl (Tizanidine Hcl 4 Mg Tablet) 4 mg PO TID PRN PRN Reason: back spasm Trazodone HCl (Trazodone Hcl 50 Mg Tablet) 50 mg PO BEDTIME MRX1 PRN PRN Reason: Insomnia Allergies Allergies Allergy/AdvReac Type Severity Reaction Status Date / Time chocolate flavor Allergy Unknown UNKNOWN Unverified 03/02/20 18:23 [CHOCOLATE FLAVOR] Assessment & Plan Assessment & Plan (1) Schizoaffective disorder: Status: Acute Code(s): F25.9 - Schizoaffective disorder, unspecified (2) Cocaine use disorder: Status: Acute Code(s): F14.10 - Cocaine abuse, uncomplicated (3) Opioid dependence: Status: Acute Code(s): F11.20 - Opioid dependence, uncomplicated Plan Patient is a 32-year-old male with history of Schizoaffective disorder, bipolar type, opiate/cocaine abuse, on Suboxone with history of multiple psychiatric admissions who presents for dysregulated behavior in the community.? According to report, Patient was living at a residential program, [facility] however he eloped.? Staff reported that patient has not been sleeping, up all hours of the night, talking to himself, acting bizarre; he went to his grandmother's house was acting dysregulated there, jumping on the couch and barricaded himself in her bathroom; he was also complaining of bugs and snakes that were on him and he subsequently scratched his leg until it got infected and is now on antibiotic. On the unit, patient is currently a limited historian, very agitated on approach, yelling and angry that his money it was missing (which was later found to be at [facility]); he was willing to take Haldol and Ativan p.o. He was able to calm down some and shared that he knows it is possible that his concern about snakes and bugs are a delusion which can be induced by not sleeping for several days; however he is not sure if it is a hallucination and worries that someone else may get bit or over happen to him if he got bit. Patient however responded to reality testing. Patient was sleepy from medication and asked to continue interview tomorrow. Agreed to continue home medication regimen; later on patient apologized for angry behavior and for scaring staff. Hospital course: 04/10 patient, polite, calm and with appropriate behaviors. He is with organized speech and behavior. He says that yesterday he got upset only because of a misunderstanding about his money but that he is at fully able to conduct himself appropriately which he says he will continue to do. Patient denies having acted in a dysregulated wild manner prior to admission. He says that he was drinking alcohol, 1/5 liquor every day for at least a week; denies any cocaine use Says that he likes the staff at [facility] a place. He said due to getting write ups for trivial things he was being discharged to another program, [facility] and he did not want to go so he left to go to his grandmother's. He said at his grandmother's he was acting normally. Denies barricading himself in the bathroom. Says his legs were cramping so maybe he screamed about his legs cramping but that was it. He said it was his mother who called crisis, not his grandmother and that they fabricated reports about his behavior being dysregulated. Patient did say he thought he saw a snake at the detention but he realizes he was probably mistaken. Patient then added that he was upset about his mattress , said that there was something in the mattress but that staff considered it to be delusional and thus would not exchanges mattress which patient said triggered part of the problem. He denies any SI or HI at all current or recent. Patient placed a 3 day notice; says he wants to go to residential program and that he is willing to go back to [facility] if they will have a Feels that Seroquel works but says he is not supposed to be on lithium. He agrees to continue lithium while senior copywriter reaches out to prescriber. Patient says he would like to be on clonazepam or Xanax; senior copywriter explained the problems with this given substance abuse which patient grudgingly accepted. Impression: Patient remains somewhat a poor historian due to vagueness, denials and minimizing of recent behaviors and events. Thus it is difficult to be clear on his diagnosis and what is contributory. Today he is calm and organized in speech behavior, polite and reasonable; he minimizes/denies recent behaviors. There seems to be some underlying delusional, paranoid thinking regarding his worries about something in the mattress and he does have a historical diagnosis of schizoaffective disorder. However it remains quite possible that patient substance abuse is a significant contributing factor regarding his dysregulated behaviors and his quick return to stability seems to coincide with sobriety. Patient reports drinking about 16 drinks a day of alcohol for at least 2 week; it is possible that his seeing snakes/bugs in the mattress was due to untreated alcohol withdrawal. -will continue diagnosis of schizoaffective disorder; will reach out to provider for collateral (patient signed RO I). -given patient's report for alcohol abuse and recent experience of snakes/bugs crawling on him will start him on gabapentin and Ativan, schedule doses to treat for withdrawal Plan: 3 day notice Q 15 minute checks ADD Gabapentin 300mg TID (will likely taper and dc) ADD Ativan 1mg TID (will taper and dc) Continue lithium 150 b.i.d. Continue Seroquel 100 mg q.a.m. (has been on 200 in the past) Continue Seroquel 200 mg q.h.s. (has been on 400 in the past) Continue Ceftin 500 mg b.i.d. (lower limb cellulitis) Haldol 5 mg p.r.n. Q4H and Ativan 2 mg p.r.n. q4H for agitation Sublicade 300mg qmonth, last administered around 04/03/23 Seek collateral Reviewed labs from [facility]: CBC, lytes, BUN/creatinine, calcium, magnesium, LFTs, TSH all WNL UA WNL QTC 410 UDS +cocaine Patient educated on: diagnosis, medication risk/benefits and substance abuse Informed Consent: understands, does not understand and further education needed Reason for continued inpatient stay Substantial Risk for: rapid decompensation Time Spent With Patient Time: Total time managing care of this patient today ____ minutes.
[2023-04-10] MEDS: Lithium Carbonate 300 MG TABLET 150 MG PO ×2 (10:07→20:20)
[2023-04-10] MEDS: QUEtiapine Fumarate 100 MG TABLET PO (10:07)
[2023-04-10] MEDS: LORazepam 1 MG TABLET PO ×2 (10:55→20:10)
[2023-04-10] MEDS: Gabapentin 300 MG CAPSULE PO ×2 (10:55→20:10)
[2023-04-10] MEDS: Nicotine Polacrilex 2 MG GUM 4 MG BUCCAL (11:50)
[2023-04-10] MEDS: Nicotine 14 MG PATCH.TD24 TRANSDERMA (11:50)
[2023-04-10] MEDS: Lidocaine 4 % Patch ADH..PATCH 1 PATCH TRANSDERMA (11:50)
[2023-04-10] MEDS: hydrOXYzine HCL 50 MG TABLET PO ×2 (12:00→20:10)
[2023-04-10] MEDS: QUEtiapine Fumarate 200 MG TABLET PO (20:10)
[2023-04-10] MEDS: cloNIDine HCL 0.1 MG TABLET PO (20:11)
[2023-04-10] MEDS: Nicotine Polacrilex Lozenge 4 MG LOZENGE BUCCAL (20:12)
[2023-04-10] MEDS: HaloperidoL 5 MG TABLET PO (22:37)
[2023-04-10] MEDS: LORazepam 1 MG TABLET 2 MG PO (22:38)
--- NOTE | 2023-04-10 22:42 | PC.NURSE ---
Patient approached nurses station requesting to speak with RN. In room, patient reports that his bed is moving up and down. Pt mood becoming increasingly anxious and agitated over hallucinations. PRN haldol and ativan administered, pending effect.
[2023-04-11] MEDS: cephALEXin 500 MG CAPSULE PO ×4 (05:25→22:04)
[2023-04-11] MEDS: Gabapentin 300 MG CAPSULE PO ×3 (08:08→20:12)
[2023-04-11] MEDS: LORazepam 1 MG TABLET PO ×3 (08:09→20:13)
[2023-04-11] MEDS: QUEtiapine Fumarate 100 MG TABLET PO (08:09)
[2023-04-11] MEDS: Lithium Carbonate 300 MG TABLET 150 MG PO ×2 (08:09→20:12)
[2023-04-11] MEDS: Nicotine 21 MG PATCH.TD24 TRANSDERMA (08:10)
[2023-04-11] MEDS: HaloperidoL 5 MG TABLET PO ×2 (08:12→16:06)
[2023-04-11] MEDS: Lidocaine 4 % Patch ADH..PATCH 1 PATCH TRANSDERMA (08:27)
[2023-04-11 09:27] VITALS: BP 137/83; PULSE 112; RESP 18; TEMP 36.6; O2SAT 97
--- NOTE | 2023-04-11 09:40 | P.PNPSI_ITS ---
Subjective Subjective Date of Service: 04/11/23 Reason For Visit: Schizoaffective disorder, opiate use disorder Interim History: met with patient; discussed with team Patient?remains?in?behavioral?control.??Slept?through?the?night.??No?complaints? no?requests. Diagnostics Vital Signs (24Hr): Vital Signs - 24 hr 04/11/23 09:27 Temperature 97.9 F Pulse Rate 112 H Respiratory Rate 18 Blood Pressure 137/83 Pulse Oximetry 97 Oxygen Delivery Method Room Air Labs Labs: Laboratory Results - last 48 hr 04/09/23 08:30 Triglycerides 83 Cholesterol 144 LDL Cholesterol, Calc 80 HDL Cholesterol 48 TSH 1.52 Medications Medications Current Medications Acetaminophen (Acetaminophen 325 Mg Tablet) 650 mg PO Q6H PRN PRN Reason: Headache/Pain Mild Scale (1-3) Al Hydroxide/Mg Hydroxide (Magnesium Hydrox/Alum Hydrox 30 Ml Oral.Susp) 30 ml PO Q6H PRN PRN Reason: Heartburn/Nausea Cephalexin HCl (Cephalexin 500 Mg Capsule) 500 mg PO Q6H [facility] Stop: 04/15/23 10:46 Last Admin: 04/11/23 05:25 Dose: 500 mg Clonidine HCl (Clonidine Hcl 0.1 Mg Tablet) 0.1 mg PO Q4H PRN; Protocol PRN Reason: anxiety Last Admin: 04/10/23 20:11 Dose: 0.1 mg Gabapentin (Gabapentin 300 Mg Capsule) 300 mg PO TID [facility] Last Admin: 04/11/23 08:08 Dose: 300 mg Haloperidol (Haloperidol 5 Mg Tablet) 5 mg PO Q6H PRN PRN Reason: agitation, psychosis Last Admin: 04/11/23 08:12 Dose: 5 mg Hydroxyzine HCl (Hydroxyzine Hcl 50 Mg Tablet) 50 mg PO Q6H PRN PRN Reason: Anxiety Last Admin: 04/10/23 20:10 Dose: 50 mg Lidocaine (Lidocaine 4 % Patch Adh..Patch) 1 patch TRANSDERMA DAILY [facility]; Protocol Last Admin: 04/11/23 08:27 Dose: 1 patch [place] Carbonate ([place] Carbonate 300 Mg Tablet) 150 mg PO BID [facility] Last Admin: 04/11/23 08:09 Dose: 150 mg Lorazepam (Lorazepam 1 Mg Tablet) 2 mg PO Q4H PRN PRN Reason: agitation Last Admin: 04/10/23 22:38 Dose: 2 mg Lorazepam (Lorazepam 1 Mg Tablet) 1 mg PO TID [facility] Last Admin: 04/11/23 08:09 Dose: 1 mg Magnesium Hydroxide (Milk Of Magnesia 30 Ml Oral.Susp) 30 ml PO DAILY PRN PRN Reason: Constipation Nicotine (Nicotine 21 Mg Patch.Td24) 21 mg TRANSDERMA DAILY [facility] Last Admin: 04/11/23 08:10 Dose: 21 mg Nicotine Polacrilex (Nicotine Polacrilex Lozenge 4 Mg Lozenge) 4 mg BUCCAL Q2H PRN PRN Reason: Nicotine Cravings Last Admin: 04/10/23 20:12 Dose: 4 mg Quetiapine Fumarate (Quetiapine Fumarate 100 Mg Tablet) 100 mg PO DAILY [facility] Last Admin: 04/11/23 08:09 Dose: 100 mg Quetiapine Fumarate (Quetiapine Fumarate 200 Mg Tablet) 200 mg PO BEDTIME [facility] Last Admin: 04/10/23 20:10 Dose: 200 mg Tizanidine HCl (Tizanidine Hcl 4 Mg Tablet) 4 mg PO TID PRN PRN Reason: back spasm Trazodone HCl (Trazodone Hcl 50 Mg Tablet) 50 mg PO BEDTIME MRX1 PRN PRN Reason: Insomnia Allergies Allergies Allergy/AdvReac Type Severity Reaction Status Date / Time chocolate flavor Allergy Unknown UNKNOWN Unverified 03/02/20 18:23 [CHOCOLATE FLAVOR] Assessment & Plan Assessment & Plan (1) Schizoaffective disorder: Status: Acute Code(s): F25.9 - Schizoaffective disorder, unspecified (2) Cocaine use disorder: Status: Acute Code(s): F14.10 - Cocaine abuse, uncomplicated (3) Opioid dependence: Status: Acute Code(s): F11.20 - Opioid dependence, uncomplicated Plan Patient is a 32-year-old male with history of Schizoaffective disorder, bipolar type, opiate/cocaine abuse, on Suboxone with history of multiple psychiatric admissions who presents for dysregulated behavior in the community.? According to report, Patient was living at a residential program, [facility] however he eloped.? Staff reported that patient has not been sleeping, up all hours of the night, talking to himself, acting bizarre; he went to his grandmother's house was acting dysregulated there, jumping on the couch and barricaded himself in her bathroom; he was also complaining of bugs and snakes that were on him and he subsequently scratched his leg until it got infected and is now on antibiotic. On the unit, patient is currently a limited historian, very agitated on approach, yelling and angry that his money it was missing (which was later found to be at [facility]); he was willing to take Haldol and Ativan p.o. He was able to calm down some and shared that he knows it is possible that his concern about snakes and bugs are a delusion which can be induced by not sleeping for several days; however he is not sure if it is a hallucination and worries that someone else may get bit or over happen to him if he got bit. Patient however responded to reality testing. Patient was sleepy from [facility] and asked to continue interview tomorrow. Agreed to continue home medication regimen; later on patient apologized for angry behavior and for scaring staff. Hospital course: 04/10 patient, polite, calm and with appropriate behaviors. He is with organized speech and behavior. He says that yesterday he got upset only because of a misunderstanding about his money but that he is at fully able to conduct himself appropriately which he says he will continue to do. Patient denies having acted in a dysregulated wild manner prior to admission. He says that he was drinking alcohol, 1/5 liquor every day for at least a week; denies any cocaine use Says that he likes the staff at [facility]. He said due to getting write ups for trivial things he was being discharged to another program, [facility] and he did not want to go so he left to go to his grandmother's. He said at his grandmother's he was acting normally. Denies barricading himself in the bathroom. Says his legs were cramping so maybe he screamed about his legs cramping but that was it. He said it was his mother who called crisis, not his grandmother and that they fabricated reports about his behavior being dysregul ated. Patient did say he thought he [facility] a [facility] but he realizes he was probably mistaken. Patient then added that he was upset about his mattress , said that there was something in the mattress but that staff considered it to be delusional and thus would not exchanges mattress which patient said triggered part of the problem. He denies any SI or HI at all current or recent. Patient placed a 3 day notice; says he wants to go to residential program and that he is willing to go back to [facility] if they will have a Feels that Seroquel works but says he is not supposed to be on lithium. He agrees to continue lithium while assembly instructions writer reaches out to prescriber. Patient says he would like to be on clonazepam or Xanax; assembly instructions writer explained the problems with this given substance abuse which patient grudgingly accepted. 04/11?remains?calm?and?behavioral?control;?attempted?to?get?a?hold?of?prescriber ?but?was?unable?to?reach?her Impression: Patient remains somewhat a poor historian due to vagueness, denials and minimizing of recent behaviors and events. Thus it is difficult to be clear on his diagnosis and what is contributory. Today he is calm and organized in speech behavior, polite and reasonable; he minimizes/denies recent behaviors. There seems to be some underlying delusional, paranoid thinking regarding his worries about something in the mattress and he does have a historical diagnosis of schizoaffective disorder. However it remains quite possible that patient substance abuse is a significant contributing factor regarding his dysregulated behaviors and his quick return to stability seems to coincide with sobriety. Patient reports drinking about 16 drinks a day of alcohol for at least 2 week; it is possible that his seeing snakes/bugs in the mattress was due to untreated alcohol withdrawal. -will continue diagnosis of schizoaffective disorder; will reach out to provider for collateral (patient signed RO I). -given patient's report for alcohol abuse and recent experience of snakes/bugs crawling on him will start him on gabapentin and Ativan, schedule doses to treat for withdrawal Plan: 3 day notice Q 15 minute checks ADD Gabapentin 300mg TID (will likely taper and dc) ADD Ativan 1mg TID (will taper and dc) Continue lithium 150 b.i.d. Continue Seroquel 100 mg q.a.m. (has been on 200 in the past) Continue Seroquel 200 mg q.h.s. (has been on 400 in the past) Continue Ceftin 500 mg b.i.d. (lower limb cellulitis) Haldol 5 mg p.r.n. Q4H and Ativan 2 mg p.r.n. q4H for agitation Sublicade 300mg qmonth, last administered around 04/03/23 Seek collateral Reviewed labs from [facility]: CBC, lytes, BUN/creatinine, calcium, magnesium, LFTs, TSH all WNL UA WNL QTC 410 UDS +cocaine Patient educated on: diagnosis Informed Consent: understands Reason for continued inpatient stay Substantial Risk for: stable for discharge Time Spent With Patient Time: Total time managing care of this patient today ____ minutes.
[2023-04-11] MEDS: LORazepam 1 MG TABLET 2 MG PO (16:06)
[2023-04-11 17:39] VITALS: BP 133/72; PULSE 106; RESP 18; TEMP 36.8; O2SAT 98
[2023-04-11] MEDS: QUEtiapine Fumarate 200 MG TABLET PO (20:12)
[2023-04-11] MEDS: hydrOXYzine HCL 50 MG TABLET PO (20:12)
[2023-04-11] MEDS: Nicotine Polacrilex Lozenge 4 MG LOZENGE BUCCAL (20:16)
[2023-04-12] MEDS: cephALEXin 500 MG CAPSULE PO ×4 (04:50→21:44)
[2023-04-12] MEDS: QUEtiapine Fumarate 100 MG TABLET PO (08:05)
[2023-04-12] MEDS: LORazepam 1 MG TABLET PO ×3 (08:05→19:46)
[2023-04-12] MEDS: Lithium Carbonate 300 MG TABLET 150 MG PO ×2 (08:05→19:46)
[2023-04-12] MEDS: Gabapentin 300 MG CAPSULE PO ×3 (08:05→19:46)
[2023-04-12] MEDS: Nicotine 21 MG PATCH.TD24 TRANSDERMA (08:06)
[2023-04-12] MEDS: Lidocaine 4 % Patch ADH..PATCH 1 PATCH TRANSDERMA (08:06)
[2023-04-12 08:20] VITALS: BP 131/85; PULSE 77; RESP 16; TEMP 36.8; O2SAT 99
--- NOTE | 2023-04-12 09:50 | P.PNPSI_ITS ---
Subjective Subjective Date of Service: 04/12/23 Reason For Visit: Schizoaffective disorder, opiate use disorder Interim History: With patient; discussed with team; reviewed notes Patient calm, remains in good behavioral control, mostly keeping to himself. Pretty tired throughout the day. Psychology Tech received fax from outpatient clinic regarding medication history; Discussed medication regimen with patient who said he would rather just leave things the way they are. Denies any SI or HI Mental Status Exam Mental Status Exam Narrative: Pt is alert and oriented; behavior is cooperative, sleepy, calm; patient is not in distress; dressed in hospital attire with unkempt dreads but adequate hygiene; mood is described as good and affect tired, sleepy; eye contact limited; Speech is normal rate, volume and prosody and not pressured; no psychomotor agitation/retardation present; thought process is organized and goal directed; Thought content is on discharge to [facility]; otherwise pertinent to relevant topics; no delusional/paranoid ideation expressed; denies any SI/HI. There is no overt evidence of perceptual disturbance and denies AVH Patients insight and judgment impaired but adequate Diagnostics Vital Signs (24Hr): Vital Signs - 24 hr 04/11/23 17:39 04/12/23 08:20 Temperature 98.2 F 98.2 F Pulse Rate 106 H 77 Respiratory Rate 18 16 Blood Pressure 133/72 131/85 Pulse Oximetry 98 99 Oxygen Delivery Method Room Air Room Air Medications Medications Current Medications Acetaminophen (Acetaminophen 325 Mg Tablet) 650 mg PO Q6H PRN PRN Reason: Headache/Pain Mild Scale (1-3) Al Hydroxide/Mg Hydroxide (Magnesium Hydrox/Alum Hydrox 30 Ml Oral.Susp) 30 ml PO Q6H PRN PRN Reason: Heartburn/Nausea Cephalexin HCl (Cephalexin 500 Mg Capsule) 500 mg PO Q6H [facility] Stop: 04/15/23 10:46 Last Admin: 04/12/23 04:50 Dose: 500 mg Clonidine HCl (Clonidine Hcl 0.1 Mg Tablet) 0.1 mg PO Q4H PRN; Protocol PRN Reason: anxiety Last Admin: 04/10/23 20:11 Dose: 0.1 mg Gabapentin (Gabapentin 300 Mg Capsule) 300 mg PO TID [facility] Last Admin: 04/12/23 08:05 Dose: 300 mg Haloperidol (Haloperidol 5 Mg Tablet) 5 mg PO Q6H PRN PRN Reason: agitation, psychosis Last Admin: 04/11/23 16:06 Dose: 5 mg Hydroxyzine HCl (Hydroxyzine Hcl 50 Mg Tablet) 50 mg PO Q6H PRN PRN Reason: Anxiety Last Admin: 04/11/23 20:12 Dose: 50 mg Lidocaine (Lidocaine 4 % Patch Adh..Patch) 1 patch TRANSDERMA DAILY [facility]; Protocol Last Admin: 04/12/23 08:06 Dose: 1 patch [place] Carbonate ([place] Carbonate 300 Mg Tablet) 150 mg PO BID [facility] Last Admin: 04/12/23 08:05 Dose: 150 mg Lorazepam (Lorazepam 1 Mg Tablet) 2 mg PO Q4H PRN PRN Reason: agitation Last Admin: 04/11/23 16:06 Dose: 2 mg Lorazepam (Lorazepam 1 Mg Tablet) 1 mg PO TID [facility] Last Admin: 04/12/23 08:05 Dose: 1 mg Magnesium Hydroxide (Milk Of Magnesia 30 Ml Oral.Susp) 30 ml PO DAILY PRN PRN Reason: Constipation Nicotine (Nicotine 21 Mg Patch.Td24) 21 mg TRANSDERMA DAILY [facility] Last Admin: 04/12/23 08:06 Dose: 21 mg Nicotine Polacrilex (Nicotine Polacrilex Lozenge 4 Mg Lozenge) 4 mg BUCCAL Q2H PRN PRN Reason: Nicotine Cravings Last Admin: 04/11/23 20:16 Dose: 4 mg Quetiapine Fumarate (Quetiapine Fumarate 100 Mg Tablet) 100 mg PO DAILY [facility] Last Admin: 04/12/23 08:05 Dose: 100 mg Quetiapine Fumarate (Quetiapine Fumarate 200 Mg Tablet) 200 mg PO BEDTIME [facility] Last Admin: 04/11/23 20:12 Dose: 200 mg Tizanidine HCl (Tizanidine Hcl 4 Mg Tablet) 4 mg PO TID PRN PRN Reason: back spasm Trazodone HCl (Trazodone Hcl 50 Mg Tablet) 50 mg PO BEDTIME MRX1 PRN PRN Reason: Insomnia Allergies Allergies Allergy/AdvReac Type Severity Reaction Status Date / Time chocolate flavor Allergy Unknown UNKNOWN Verified 04/11/23 17:00 [CHOCOLATE FLAVOR] Assessment & Plan Assessment & Plan (1) Schizoaffective disorder: Status: Acute Code(s): F25.9 - Schizoaffective disorder, unspecified (2) Cocaine use disorder: Status: Acute Code(s): F14.10 - Cocaine abuse, uncomplicated (3) Opioid dependence: Status: Acute Code(s): F11.20 - Opioid dependence, uncomplicated Plan Patient is a 32-year-old male with history of Schizoaffective disorder, bipolar type, opiate/cocaine abuse, on Suboxone with history of multiple psychiatric admissions who presents for dysregulated behavior in the community.? According to report, Patient was living at a residential program, [facility] however he eloped.? Staff reported that patient has not been sleeping, up all hours of the night, talking to himself, acting bizarre; he went to his grandmother's house was acting dysregulated there, jumping on the couch and barricaded himself in her bathroom; he was also complaining of bugs and snakes that were on him and he subsequently scratched his leg until it got infected and is now on antibiotic. On the unit, patient is currently a limited historian, very agitated on approach, yelling and angry that his money it was missing (which was later found to be at [facility]); he was willing to take Haldol and Ativan p.o. He was able to calm down some and shared that he knows it is possible that his concern about snakes and bugs are a delusion which can be induced by not slee ping for several days; however he is not sure if it is a hallucination and worries that someone else may get bit or over happen to him if he got bit. Patient however responded to reality testing. Patient was sleepy from medication and asked to continue interview tomorrow. Agreed to continue home medication regimen; later on patient apologized for angry behavior and for scaring staff. Hospital course: 04/10 patient, polite, calm and with appropriate behaviors. He is with organized speech and behavior. He says that yesterday he got upset only because of a misunderstanding about his money but that he is at fully able to conduct himself appropriately which he says he will continue to do. Patient denies having acted in a dysregulated wild manner prior to admission. He says that he was drinking alcohol, 1/5 liquor every day for at least a week; denies any cocaine use Says that he likes the staff at [facility]. He said due to getting write ups for trivial things he was being discharged to another program, [facility] and he did not want to go so he left to go to his grandmother's. He said at his grandmother's he was acting normally. Denies barricading himself in the ba throom. Says his legs were cramping so maybe he screamed about his legs cramping but that was it. He said it was his mother who called crisis, not his grandmother and that they fabricated reports about his behavior being dysregulated. Patient did say he thought he [facility] a [facility] but he realizes he was probably mistaken. Patient then added that he was upset about his mattress , said that there was something in the mattress but that staff considered it to be delusional and thus would not exchanges mattress which patient said triggered part of the problem. He denies any SI or HI at all current or recent. Patient placed a 3 day notice; says he wants to go to residential program and that he is willing to go back to [facility] if they will have a Feels that Seroquel works but says he is not supposed to be on lithium. He agrees to continue lithium while account underwriter reaches out to prescriber. Patient says he would like to be on clonazepam or Xanax; account underwriter explained the problems with this given substance abuse which patient grudgingly accepted. 04/11?remains?calm?and?behavioral?control;?attempted?to?get?a?hold?of?prescriber ?but?was?unable?to?reach?her Impression: Patient remains somewhat a poor historian due to vagueness, denials and minimizing of recent behaviors and events. Thus it is difficult to be clear on his diagnosis and what is contributory. Today he is calm and organized in speech behavior, polite and reasonable; he minimizes/denies recent behaviors. There seems to be some underlying delusional, paranoid thinking regarding his worries about something in the mattress and he does have a historical diagnosis of schizoaffective disorder. However it remains quite possible that patient substance abuse is a significant contributing factor regarding his dysregulated behaviors and his quick return to stability seems to coincide with sobriety. Patient reports drinking about 16 drinks a day of alcohol for at least 2 week; it is possible that his seeing snakes/bugs in the mattress was due to untreated alcohol withdrawal. -will continue diagnosis of schizoaffective disorder; will reach out to provider for collateral (patient signed RO I). -given patient's report for alcohol abuse and recent experience of snakes/bugs crawling on him will start him on gabapentin and Ativan, schedule doses to treat for withdrawal 04/12 patient remains calm, in good behavior and impulse control. No complaints and no requests other than he wants to discharge to [facility] program. Reviewed outpatient provider notes which report medication regimen and discussed with patient who wants to remain on current regimen that he is on now which is lithium 150 b.i.d. and lower dose of Seroquel Home regimen: Seroquel 200 mg in the a.m., 100 mg 15:00 and 400 mg q.h.s.; plan was to discontinue lithium and start Lunesta 1 mg q.h.s. gabapentin 300 mg t.i.d. Clonidine 0.1 mg b.i.d. Vistaril 50 mg t.i.d. Report also indicates long history of alcohol abuse/dependence with up to 10 [id number]. Plan: 3 day notice Q 15 minute checks Continue Gabapentin 300mg TID (will likely taper and dc) Will lower to Ativan 1mg b.i.d. (will taper and dc) Continue lithium 150 b.i.d. Continue Seroquel 100 mg q.a.m. (has been on 200 in the past) Continue Seroquel 200 mg q.h.s. (has been on 400 in the past) Continue Ceftin 500 mg b.i.d. (lower limb cellulitis) Haldol 5 mg p.r.n. Q4H for agitation Sublicade 300mg qmonth, last administered around 04/03/23 Seek collateral Reviewed labs from [facility]: CBC, lytes, BUN/creatinine, calcium, magnesium, LFTs, TSH all WNL UA WNL QTC 410 UDS +cocaine Patient educated on: diagnosis, medication risk/benefits and substance abuse Informed Consent: understands Reason for continued inpatient stay Substantial Risk for: stable for discharge Time Spent With Patient Time: Total time managing care of this patient today ____ minutes.
[2023-04-12] MEDS: Nicotine Polacrilex Lozenge 4 MG LOZENGE BUCCAL ×2 (15:02→19:54)
[2023-04-12 18:00] VITALS: BP 130/71; PULSE 82; TEMP 36.2; O2SAT 98
[2023-04-12] MEDS: HaloperidoL 5 MG TABLET PO (18:57)
[2023-04-12] MEDS: QUEtiapine Fumarate 200 MG TABLET PO (19:45)
[2023-04-12] MEDS: traZODone HCL 50 MG TABLET PO (20:02)
[2023-04-12] MEDS: Sodium Chloride 0.65 % Nasal 44 ML SPRBTL 1 SPRAY NOSTRIL-B (21:10)
[2023-04-13] MEDS: cephALEXin 500 MG CAPSULE PO ×4 (05:16→20:47)
[2023-04-13] MEDS: Sodium Chloride 0.65 % Nasal 44 ML SPRBTL 1 SPRAY NOSTRIL-B ×3 (06:50→21:31)
[2023-04-13] MEDS: Gabapentin 300 MG CAPSULE PO ×2 (08:29→19:29)
[2023-04-13] MEDS: QUEtiapine Fumarate 100 MG TABLET PO (08:29)
[2023-04-13] MEDS: LORazepam 1 MG TABLET PO ×2 (08:29→19:30)
[2023-04-13] MEDS: Lithium Carbonate 300 MG TABLET 150 MG PO ×2 (08:29→21:41)
[2023-04-13] MEDS: Nicotine 21 MG PATCH.TD24 TRANSDERMA (08:29)
[2023-04-13] MEDS: Lidocaine 4 % Patch ADH..PATCH 1 PATCH TRANSDERMA (08:30)
[2023-04-13 08:32] VITALS: BP 138/79; PULSE 83; RESP 16; TEMP 36.3; O2SAT 99
--- NOTE | 2023-04-13 09:55 | P.PNPSI_ITS ---
Subjective Subjective Date of Service: 04/13/23 Reason For Visit: Schizoaffective disorder, opiate use disorder Interim History: Met with patient; discussed with team Patient?reports?that?he?is?doing?just?fine.??He?says?that?he?is?purposely?sleepi ng?most?of?the?time?while?on?the?unit Tryi ng?to?get?through?the?weekend?until?he?can?discharge?tomorrow?on?Friday.??He?den ies?that?medications Are?making?him?tired?and?just?says?it?is?the?way?he?is?passing?the?time.??Patien t?would?like?to?stay?on?current?medication?regimen, Including?lithium.??He?says?he?is?going?to?go?to?his?grandmother's?house?and?the n?tried?to?get?into?a?program?from?there. Patient?denies?any?SI?or?HI?or?AVH?and?has?re mained?in?good?behavioral?and?impulse?control?throughout?his?time?on?the?unit. Mental Status Exam Mental Status Exam Narrative: Pt is alert and oriented; behavior is cooperative,?friendly, calm; patient is not in distress; dressed in hospital attire with unkempt dreads but adequate hygiene; mood is described as good and affect tired, sleepy; eye contact appropriate; Speech is normal rate, volume and prosody and not pressured; no psychomotor agitation/retardation present; thought process is organized and goal directed; Thought content is on discharge to [facility]; otherwise pertinent to relevant topics; no delusional/paranoid ideation expressed; denies any SI/HI. There is no evidence of perceptual disturbance and denies AVH Patients insight and judgment are?fair?and?adequate Diagnostics Vital Signs (24Hr): Vital Signs - 24 hr 04/12/23 18:00 04/13/23 08:32 Temperature 97.2 F 97.3 F Pulse Rate 82 83 Respiratory Rate 16 Blood Pressure 130/71 138/79 Pulse Oximetry 98 99 Oxygen Delivery Method Room Air Room Air Medications Medications Current Medications Acetaminophen (Acetaminophen 325 Mg Tablet) 650 mg PO Q6H PRN PRN Reason: Headache/Pain Mild Scale (1-3) Al Hydroxide/Mg Hydroxide (Magnesium Hydrox/Alum Hydrox 30 Ml Oral.Susp) 30 ml PO Q6H PRN PRN Reason: Heartburn/Nausea Cephalexin HCl (Cephalexin 500 Mg Capsule) 500 mg PO Q6H [facility] Stop: 04/15/23 10:46 Last Admin: 04/13/23 05:16 Dose: 500 mg Clonidine HCl (Clonidine Hcl 0.1 Mg Tablet) 0.1 mg PO Q4H PRN; Protocol PRN Reason: anxiety Last Admin: 04/10/23 20:11 Dose: 0.1 mg Gabapentin (Gabapentin 300 Mg Capsule) 300 mg PO TID [facility] Last Admin: 04/13/23 08:29 Dose: 300 mg Haloperidol (Haloperidol 5 Mg Tablet) 5 mg PO Q6H PRN PRN Reason: agitation, psychosis Last Admin: 04/12/23 18:57 Dose: 5 mg Hydroxyzine HCl (Hydroxyzine Hcl 50 Mg Tablet) 50 mg PO Q6H PRN PRN Reason: Anxiety Last Admin: 04/11/23 20:12 Dose: 50 mg Lidocaine (Lidocaine 4 % Patch Adh..Patch) 1 patch TRANSDERMA DAILY [facility]; Protocol Last Admin: 04/13/23 08:30 Dose: 1 patch Letts Carbonate (Letts Carbonate 300 Mg Tablet) 150 mg PO BID [facility] Last Admin: 04/13/23 08:29 Dose: 150 mg Lorazepam (Lorazepam 1 Mg Tablet) 1 mg PO BID [facility] Last Admin: 04/13/23 08:29 Dose: 1 mg Magnesium Hydroxide (Milk Of Magnesia 30 Ml Oral.Susp) 30 ml PO DAILY PRN PRN Reason: Constipation Nicotine (Nicotine 21 Mg Patch.Td24) 21 mg TRANSDERMA DAILY [facility] Last Admin: 04/13/23 08:29 Dose: 21 mg Nicotine Polacrilex (Nicotine Polacrilex Lozenge 4 Mg Lozenge) 4 mg BUCCAL Q2H PRN PRN Reason: Nicotine Cravings Last Admin: 04/12/23 19:54 Dose: 4 mg Quetiapine Fumarate (Quetiapine Fumarate 100 Mg Tablet) 100 mg PO DAILY [facility] Last Admin: 04/13/23 08:29 Dose: 100 mg Quetiapine Fumarate (Quetiapine Fumarate 200 Mg Tablet) 200 mg PO BEDTIME [facility] Last Admin: 04/12/23 19:45 Dose: 200 mg Sodium Chloride (Sodium Chloride 0.65 % Nasal 44 Ml Sprbtl) 1 spray NOSTRIL-B Q1H PRN PRN Reason: Nasal Congestion Last Admin: 04/13/23 06:50 Dose: 1 spray Tizanidine HCl (Tizanidine Hcl 4 Mg Tablet) 4 mg PO TID PRN PRN Reason: back spasm Trazodone HCl (Trazodone Hcl 50 Mg Tablet) 50 mg PO BEDTIME MRX1 PRN PRN Reason: Insomnia Last Admin: 04/12/23 20:02 Dose: 50 mg Allergies Allergies Allergy/AdvReac Type Severity Reaction Status Date / Time chocolate flavor Allergy Unknown UNKNOWN Verified 04/11/23 17:00 [CHOCOLATE FLAVOR] Assessment & Plan Assessment & Plan (1) Schizoaffective disorder: Status: Acute Code(s): F25.9 - Schizoaffective disorder, unspecified (2) Cocaine use disorder: Status: Acute Code(s): F14.10 - Cocaine abuse, uncomplicated (3) Opioid dependence: Status: Acute Code(s): F11.20 - Opioid dependence, uncomplicated Plan Patient is a 32-year-old male with history of Schizoaffective disorder, bipolar type, opiate/cocaine abuse, on Suboxone with history of multiple psychiatric admissions who presents for dysregulated behavior in the community.? According to report, Patient was living at a residential program, [facility] however he eloped.? Staff reported that patient has not been sleeping, up all hours of the night, talking to himself, acting bizarre; he went to his grandmother's house was acting dysregulated there, jumping on the couch and barricaded himself in her bathroom; he was also complaining of bugs and snakes that were on him and he subsequently scratched his leg until it got infected and is now on antibiotic. On the unit, patient is currently a limited historian, very agitated on approach, yelling and angry that his money it was missing (which was later found to be at [facility]); he was willing to take Haldol and Ativan p.o. He was able to calm down some and shared that he knows it is possible that his concern about snakes and bugs are a delusion which can be induced by not sleeping for several days; however he is not sure if it is a hallucination and worries that someone else may get bit or over happen to him if he got bit. Patient however responded to reality testing. Patient was sleepy from medication and asked to continue interview tomorrow. Agreed to continue home medication regimen; later on patient apologized for angry behavior and for scaring staff. Hospital course: 04/10 patient, polite, calm and with appropriate behaviors. He is with organized speech and behavior. He says that yesterday he got upset only because of a misunderstanding about his money but that he is at fully able to conduct himself appropriately which he says he will continue to do. Patient denies having acted in a dysregulated wild manner prior to admission. He says that he was drinking alcohol, 1/5 liquor every day for at least a week; denies any cocaine use Says that he likes the staff at [facility] a place. He said due to getting write ups for trivial things he was being discharged to another program, [facility] and he did not want to go so he left to go to his grandmother's. He said at his grandmother's he was acting normally. Denies barricading himself in the bathroom. Says his legs were cramping so maybe he screamed about his legs cramping but that was it. He said it was his mother who called crisis, not his grandmother and that they fabricated reports about his behavior being dysregulated. Patient did say he thought he saw a snake at the residential but he realizes he was probably mistaken. Patient then added that he was upset about his mattress , said that there was something in the mattress but that staff considered it to be delusional and thus would not exchanges mattress which patient said triggered part of the problem. He denies any SI or HI at all current or recent. Patient placed a 3 day notice; says he wants to go to residential program and that he is willing to go back to [facility] if they will have a Feels that Seroquel works but says he is not supposed to be on lithium. He agrees to continue lithium while news writer reaches out to prescriber. Patient says he would like to be on clonazepam or Xanax; news writer explained the problems with this given substance abuse which patient grudgingly accepted. 04/11?remains?calm?and?behavioral?control;?attempted?to?get?a?hold?of?prescriber ?but?was?unable?to?reach?her Impression: Patient remains somewhat a poor historian due to vagueness, denials and minimizing of recent behaviors and events. Thus it is difficult to be clear on his diagnosis and what is contributory. Today he is calm and organized in speech behavior, polite and reasonable; he minimizes/denies recent behaviors. There seems to be some underlying delusional, paranoid thinking regarding his worries about something in the mattress and he does have a historical diagnosis of schizoaffective disorder. However it remains quite possible that patient substance abuse is a significant contributing factor regarding his dysregulated behaviors and his quick return to stability seems to coincide with sobriety. Patient reports drinking about 16 drinks a day of alcohol for at least 2 week; it is possible that his seeing snakes/bugs in the mattress was due to untreated alcohol withdrawal. -will continue diagnosis of schizoaffective disorder; will reach out to provider for collateral (patient signed RO I). -given patient's report for alcohol abuse and recent experience of snakes/bugs crawling on him will start him on gabapentin and Ativan, schedule doses to treat for withdrawal 04/12 patient remains calm, in good behavior and impulse control. No complaints and no requests other than he wants to discharge to [facility] program. Reviewed outpatient provider notes which report medication regimen and discussed with patient who wants to remain on current regimen that he is on now which is lithium 150 b.i.d. and lower dose of Seroquel Home regimen: Seroquel 200 mg in the a.m., 100 mg 15:00 and 400 mg q.h.s.; plan was to discontinue lithium and start Lunesta 1 mg q.h.s. gabapentin 300 mg t.i.d. Clonidine 0.1 mg b.i.d. Vistaril 50 mg t.i.d. Report also indicates long history of alcohol abuse/dependence with up to 10 [id number]'s. 1029 ?patient?reports?that?he?is?ready?to?go?like?to?discharge?tomorrow?as?his?3?day? notice?is?due.??Reports?mood?is?good?and?he?is?feeling?stable.??Plans Plans?to?go?to?his?grandmother's?and?then?she?got? a?program?from?there.??Wants?to?remain?on?current?regimen.??Patient?said?his?sle epiness?is?only?due To?his?effort?to?pass?the?time?while?he?has?been?on?the?unit.??Patient?feels?saf e.??He?has?remained?in?good?behavioral?and?impulse?control Patient?is?not?in?imminent?risk?for?harm?to?self?or?others?and?his?request?for?d ischarge?honored. Plan: 3 day notice Q 15 minute checks Continue Gabapentin 300mg TID (will likely taper and dc) Will lower to Ativan 1mg b.i.d. (will taper and dc) Continue lithium 150 b.i.d. Continue Seroquel 100 mg q.a.m. (has been on 200 in the past) Continue Seroquel 200 mg q.h.s. (has been on 400 in the past) Continue Ceftin 500 mg b.i.d. (lower limb cellulitis) Haldol 5 mg p.r.n. Q4H for agitation Sublicade 300mg qmonth, last administered around 04/03/23 Seek collateral Reviewed labs from [facility]: CBC, lytes, BUN/creatinine, calcium, magnesium, LFTs, TSH all WNL UA WNL QTC 410 UDS +cocaine Patient educated on: diagnosis, medication risk/benefits and therapeutic strategies Informed Consent: understands Reason for continued inpatient stay Substantial Risk for: stable for discharge Time Spent With Patient Time: Total time managing care of this patient today ____ minutes.
[2023-04-13] MEDS: HaloperidoL 5 MG TABLET PO (12:46)
[2023-04-13] MEDS: hydrOXYzine HCL 50 MG TABLET PO ×2 (15:02→20:47)
[2023-04-13] MEDS: Nicotine Polacrilex Lozenge 4 MG LOZENGE BUCCAL (19:30)
[2023-04-13] MEDS: QUEtiapine Fumarate 200 MG TABLET PO (19:30)
[2023-04-13] MEDS: traZODone HCL 50 MG TABLET PO (20:33)
[2023-04-14] MEDS: cephALEXin 500 MG CAPSULE PO ×2 (04:43→09:45)
[2023-04-14 07:59] VITALS: BP 125/59; PULSE 72; RESP 16; TEMP 36.2; O2SAT 98
[2023-04-14] MEDS: Nicotine 21 MG PATCH.TD24 TRANSDERMA (08:46)
[2023-04-14] MEDS: Lidocaine 4 % Patch ADH..PATCH 1 PATCH TRANSDERMA (08:46)
[2023-04-14] MEDS: Gabapentin 300 MG CAPSULE PO (08:47)
[2023-04-14] MEDS: LORazepam 1 MG TABLET PO (08:47)
[2023-04-14] MEDS: QUEtiapine Fumarate 100 MG TABLET PO (08:48)
[2023-04-14] MEDS: Nicotine Polacrilex Lozenge 4 MG LOZENGE BUCCAL (09:45)
[2023-04-14] MEDS: HaloperidoL 5 MG TABLET PO (09:45)
[2023-04-14] MEDS: hydrOXYzine HCL 50 MG TABLET PO (09:45)
[2023-04-14] MEDS: Naloxone HCl Nasal TAKE HOME 4 MG SPRAY 8 MG NOSTRILALT (09:58)
--- NOTE | 2023-04-14 10:45 | PM.PSYDC ---
DS: Providers Provider Date of Service: 04/14/23 Date of admission: 04/08/23 14:15 Date of discharge: 04/14/23 Primary care physician: Unknown Physician Attending physician on admission: Pantera Oliva Consults: 04/08/23 15:08 Consult to Hospitalist Routine Comment: Consulting Provider: Hospitalist Reason For Exam: admission physical Attending physician on discharge: Pantera Oliva DS: Diagnosis Discharge Diagnosis (1) Schizoaffective disorder: Status: Acute (2) Cocaine use disorder: Status: Acute (3) Opioid dependence: Status: Acute DS: Medications Discharge Medications Home Medications: Previous Rx's Medication Instructions Recorded cephalexin 500 mg capsule 500 mg PO Q6H 2 days #7 caps 04/14/23 clonidine HCl 0.1 mg tablet 0.1 mg PO BID PRN anxiety 30 days 04/14/23 #60 tabs gabapentin 300 mg capsule 300 mg PO TID 15 days #45 caps 04/14/23 haloperidol 5 mg tablet 5 mg PO Q6H PRN agitation, 04/14/23 psychosis 30 days #30 tabs hydroxyzine pamoate 50 mg capsule 50 mg PO TID PRN Anxiety 30 days 04/14/23 #90 caps lidocaine 4 % topical patch 1 patch transdermal DAILY PRN pain 04/14/23 (Lidocaine Pain Relief) 30 days #30 ea nicotine (polacrilex) 2 mg gum 2 mg PO Q3H PRN nicotine cravings 04/14/23 30 days #100 ea nicotine 14 mg/24 hr daily 1 patch topical DAILY PRN smoking 04/14/23 transdermal patch cessation 28 days #28 ea quetiapine 100 mg tablet 100 mg PO DAILY 30 days #30 tabs 04/14/23 quetiapine 200 mg tablet 200 mg PO BEDTIME 30 days #30 tabs 04/14/23 Mental Status Exam Mental Status Exam Narrative: Pt is alert and oriented; behavior is cooperative,?friendly, calm; patient is not in distress; dressed in hospital attire with unkempt dreads but adequate hygiene; mood is described as good and affect tired; eye contact appropriate; Speech is normal rate, volume and prosody and not pressured; no psychomotor agitation/retardation present; thought process is organized and goal directed; Thought content is on discharge; otherwise pertinent to relevant topics; no delusional/paranoid ideation expressed; denies any SI/HI. There is no evidence of perceptual disturbance and denies AV Patients insight and judgment are?fair?and?adequate Data Data Completed and Pending Completed studies during hospitalization [Text1]: 04/09/23 08:30 Estimat Average Glucose 105 Hemoglobin A1c % 5.3 Triglycerides 83 Cholesterol 144 LDL Cholesterol, Calc 80 HDL Cholesterol 48 TSH 1.52 DS: Summary Hospital Course Hospital Course: HPI: Patient is a 32-year-old male with history of Schizoaffective disorder, bipolar type, PTSD, opiate/cocaine abuse, on Suboxone with history of multiple psychiatric admissions and multiple Section 35's who presents for dysregulated behavior in the community.? According to report, Patient was living at a residential program, [facility] however he eloped.? Staff reported that patient has not been sleeping, up all hours of the night, talking to himself, acting bizarre; he went to his grandmother's house was acting dysregulated there, jumping on the couch and barricaded himself in her bathroom; he was also complaining of bugs and snakes that were on him and he subsequently scratched his leg until it got infected and is now on antibiotic. On the unit, patient is currently a limited historian, very agitated on approach, yelling and angry that his money it was missing (which was later found to be at [facility]); he was willing to take Haldol and Ativan p.o. He was able to calm down some and shared that he knows it is possible that his concern about snakes and bugs are a delusion which can be induced by not sleeping for several days; however he is not sure if it is a hallucination and worries that someone else may get bit or over happen to him if he got bit. Patient however responded to reality testing. Patient was sleepy from medication and asked to continue interview tomorrow. Agreed to continue home medication regimen; later on patient apologized for angry behavior and for scaring staff. Hospital course: 04/10 on 1st day of admission, he got upset because of a misunderstanding about his missing money (which was later found to be at [facility]) and yelled that several staff. However patient was able to calm himself down and remains so. He apologized to staff for his outburst and said that it would not happen again. He reiterated this on the following day and remained with organized and appropriate behavioral and impulse control. Regarding recent events, Patient denies having acted in a dysregulated wild manner prior to admission. He says that he was drinking alcohol, 1/5 liquor every day for at least a week; denies any cocaine use Says that he likes the staff at [facility] a place but that he has been getting write ups for trivial things and so was being discharged to another program, [facility]; he did not want to go so he left to go to his grandmother's. Patient did say he thought he saw a snake at the longterm but he realizes he was probably mistaken. He then added that he was upset about his mattress, said that there was something in the mattress but that staff considered it to be delusional and thus would not exchange the mattress which patient said triggered part of the problem. Patient reports that he was acting normally at his grandmothers; Denies barricading himself in the bathroom. Says his legs were cramping so maybe he screamed about his legs cramping up but that was it. He blames his mother for calling crisis, not his grandmother, and that she fabricated reports about his behavior being dysregulated. He denies any SI or HI at all current or recent. Patient placed a 3 day notice; says he wants to go to residential program and that he is willing to go back to [facility] if they will have him, however, he's not sure he wants to wait it out on the unit. Patient says he would like to be on clonazepam or Xanax; check writer explained the problems with this given substance abuse which patient grudgingly accepted. 04/11?remains?calm?and?behavioral?control;?Sleepy during the day, taking PRN's wanting to sleep to pass the time. 04/12 patient remains calm, in good behavior and impulse control. No complaints and no requests other than he wants to discharge to [facility] program but again not sure how much longer he is willing to remain on the unit. Reviewed outpatient provider notes which report medication regimen and discussed with patient who wants to remain on current regimen that he is on now which is lithium 150 b.i.d. and lower dose of Seroquel Home regimen: Seroquel 200 mg in the a.m., 100 mg 15:00 and 400 mg q.h.s.; gabapentin 300 mg t.i.d.; Clonidine 0.1 mg b.i.d.; Vistaril 50 mg t.i.d. -plan was to discontinue lithium and start Lunesta 1 mg q.h.s. however as mentioned patient said he would stay on lithium. Patient's 3 day notice was coming due. Patient approached check writer wanting?to?discharge?tomorrow?as?his?3?day?notice?is?due.??Reports?mood?is?good?and?he?is?feeling?stable.??Patient Plans?to?go?to?his?grandmother's?and?then?to a?program?from?there.??Initially he said he wanted to remain on current regimen, including lithium however he change his mind and refused lithium going forward. Patient reports that he feels safe. He reports being in A good mood and feels comfortable with his disposition plan. Patient does not want any help getting appointments set up. He?has?remained?in?good?behavioral?and?impulse?control throughout his entire stay on the you. He is thankful for help received and future oriented. Continues to have denied any SI, HI, AVH. Patient already has outpatient support. And while he remains vulnerable for relapse and mood disorder late edwards, he is?not?in?imminent?risk?for?harm?to?self?or?others?and?his?request?for?discharge?honored. Impression: Throughout, Patient remained somewhat a limited historian due to vagueness, denials and minimizing recent behaviors and events. He did not give permission to speak to his mother or grandmother. Thus it remained difficult to be clear on his diagnosis. On the unit he was calm, polite and reasonable with organized speech and behavior; that said there also remained some underlying irritability that did not go way. He does carry the diagnosis of schizoaffective disorder and it seems that patient likely has some underlying delusional, paranoid thinking regarding his continued complaint about there being something in the mattress which caused an incident at the longterm. However it is unclear the degree to which an organic psychotic illness accounts for his symptoms/behaviors and remains likely that patients substance abuse is a significant contributing factor, some evidence being that his quick return to stability coincided with sobriety. Will continue with diagnosis of schizoaffective disorder. Time spent discussing smoking cessation with patient: 3 to 10 minutes Status at Discharge Functional status at discharge: independent ambulation Overall status at discharge: patient is back to baseline Time Spent with Patient Time attestation: Total time managing care of this patient today ____ minutes. Time spent: Less than 30 minutes Discharge Plan Discharge Anticipated Discharge Date/Time: 04/14/23 11:30 Patient Disposition: Home, Self-Care Discharge Diagnosis: schizoaffective disorder, bipolar type Referrals: N Medication Management w Shiela Martini [Other] - 1 Week (Please utilize walk in clinic for medical needs. ) [facility] Green Team Alejandra [Other] - 1 Day OTP w Kyaw Parra Sublocade [Other] - 04/15/23 4:45 pm ([address] [place] [address]) Discharge Medications: New cephalexin 500 mg Capsule 500 mg PO Q6H 2 Days Qty: 7 0RF gabapentin 300 mg Capsule 300 mg PO TID 15 Days Qty: 45 1RF haloperidol 5 mg Tablet 5 mg PO Q6H PRN (Reason: agitation, psychosis) 30 Days Qty: 30 0RF lidocaine [Lidocaine Pain Relief] 4 % Adhesive Patch,Medicated 1 patch transdermal DAILY PRN (Reason: pain) 30 Days Qty: 30 0RF Protocol: Apply to: Apply to: low back Rx Instructions: apply to affected area Continued nicotine (polacrilex) 2 mg gum 2 mg PO Q3H PRN (Reason: nicotine cravings ) 30 Days Qty: 100 0RF clonidine HCl 0.1 mg tablet 0.1 mg PO BID PRN (Reason: anxiety) 30 Days Qty: 60 0RF quetiapine 200 mg tablet 200 mg PO BEDTIME 30 Days Qty: 30 0RF hydroxyzine pamoate 50 mg capsule 50 mg PO TID PRN (Reason: Anxiety) 30 Days Qty: 90 0RF Changed nicotine 14 mg/24 hr patch 24 hour 1 patch topical DAILY PRN (Reason: smoking cessation) 28 Days Qty: 28 0RF quetiapine 100 mg tablet 100 mg PO DAILY 30 Days Qty: 30 0RF Discontinued clonazepam 0.5 mg tablet 0.5 mg PO BID PRN (Reason: anxiety) clonazepam 1 mg tablet 1 mg PO BEDTIME lithium carbonate 150 mg capsule 150 mg PO BID quetiapine 100 mg tablet 100 mg PO DAILY diazepam 10 mg tablet 10 mg PO TID PRN (Reason: anxiety) clonidine HCl 0.1 mg tablet 0.1 mg PO BID PRN (Reason: anxiety) clonazepam 0.5 mg tablet 0.5 mg PO BID PRN (Reason: anxiety) Discharge Orders: Discharge Order (Routine); Ordered 04/14/23 Ordered By: Pantera Oliva Diet: Regular diet Activity on Discharge: As tolerated Stand Alone Forms: Patient Portal Discharge page, Community Support Care Plan Goals: Maintain mood and safe behaviors Take medications as prescribed Continue to pursue sobriety Practice coping skills Continue with outpatient providers and reach out to them as needed Health Concerns: Mood stability and behaviors Sobriety Plan of Treatment: Follow up with your PCP, psychiatric provider and other outpatient providers regarding above concerns Take medications as prescribed Assessment: Risk assessment at time of discharge:? Patient was interviewed prior to discharge and found to be fully oriented and without any SI or HI. Patient has improved insight and judgment and wants to continue treatment. Patient is not in imminent risk of harm to self or others and has a safety plan that includes presenting to the closest ER or calling 911 if feeling unsafe.? Patient has been observed closely by nursing and unit staff throughout admission; patient has not engaged in any behaviors that suggest dangerousness to self or others and has demonstrated appropriate behaviors and impulse control
== END 2023-04-14 11:46 | disposition home or self-care (01) | DRG 750 ==
PROVIDERS: Psychiatry & Neurology Psychiatry; Admitting Provider Psychiatry & Neurology Psychiatry; Visit Provider Psychiatry & Neurology Psychiatry
DX: F25.0 Schizoaffective disorder, bipolar type (principal); L03.115 Cellulitis of right lower limb; F43.10 Post-traumatic stress disorder, unspecified; L03.116 Cellulitis of left lower limb; F14.10 Cocaine abuse, uncomplicated; M54.59 Other low back pain; F11.20 Opioid dependence, uncomplicated; F17.210 Nicotine dependence, cigarettes, uncomplicated; Z71.6 Tobacco abuse counseling; Z79.899 Other long term (current) drug therapy
CPT/HCPCS: 36415; 80061; 83036; 84443

== ENCOUNTER → 2023-04-08 14:15 | Outpatient (BNV) | payer OTHER, SELFPAY | PROVIDERS: Admitting Provider Psychiatry & Neurology Psychiatry; Visit Provider Psychiatry & Neurology Psychiatry | DX: F25.0 Schizoaffective disorder, bipolar type (principal); F14.10 Cocaine abuse, uncomplicated; F11.20 Opioid dependence, uncomplicated | CPT/HCPCS: 99231; 99232; 99233 ==

== ENCOUNTER → 2023-04-08 14:15 | Outpatient (BNV) | payer OTHER, SELFPAY | PROVIDERS: Admitting Provider Psychiatry & Neurology Psychiatry; Visit Provider Physician Assistant | DX: Z02.2 Encounter for examination for admission to residential institution (principal) | CPT/HCPCS: 99429 ==